=== PATIENT | female | born 1935 | race Caucasian/White ===

== ENCOUNTER 2018-07-01 10:56 | Emergency (ER) | payer MEDICARE ==
[~2018-07-01] VITALS: Ht 165.1 cm; Wt 71.7 kg
[~2018-07-01 10:56] MED LIST: AMIO200T4 PO; APIX5TAB PO; DARB40VI SC; DILT120C53; DILT120C63 PO; DOCU100C37 PO; FURO40TA4; LEVO25TA5; LORA10TA7 PO; MENT71OI TOP; METO-333 PO; METO50TA15; PANT40TA3 PO; TR1C15 TP; TRAM50TA2 PO
[2018-07-01] MEDS ORDERED: HYDROcodone/APAP 5 MG/325 MG (LORTAB) TAB PO ONE (11:30)
--- NOTE | 2018-07-01 11:41 | ED Back Pain ---
General Chief Complaint: Back Problems Stated Complaint: RUQ BACK PAIN Nursing Triage Note: PT AMBULATED TO ROOM 5 PT CO OF R UPPER BACK PAIN SINCE FALL IN APRIL, PT HAS KYPHOSIS OF SPINE, PT IS A DYALISIS PT Nursing Sepsis Screen: No Definite Risk Source of Information: Patient, Family (Daughter) Exam Limitations: No Limitations History of Present Illness Date Seen by Provider: Jul 01, 2018 Time Seen by Provider: 11:05 Initial Comments Patient is an 83-year-old female who presents to the emergency room with complaints of right upper back pain for fall on May 14. She was seen at [facility] where she had x-rays and was told that they were normal. She has continued to have pain every since the fall and has been seen in Dr. Nikki Horner office and was treated for a pulled muscle but pain is not improving. Denies loss of bowel or bladder. Location: T-Spine Pain/Injury Location: Back Method of Injury: Fall Modifying Factors: Improves With Other (lying flat improves) Associated Symptoms: No numbness in legs/feet, No tingling in legs/feet, No loss of bladder control, No loss of bowel control Allergies and Home Medications Allergies Coded Allergies: cephalexin (Verified Allergy, Unknown, 03/21/16) Home Medications Docusate Sodium 100 Mg Capsule, 100 MG PO BID Prescribed by: MARLO TRISTAN on 04/07/161856 Hydrocodone Bit/Acetaminophen 1 Tab Tab, 1 EACH PO Q6H PRN for PAIN-MODERATE Prescribed by: GO PENA on 07/01/18 1228 Loratadine 10 Mg Tablet, 10 MG PO DAILY Prescribed by: MARLO TRISTAN on 04/07/161856 Pantoprazole Sodium 40 Mg Tablet.dr, 40 MG PO DAILY@0700 Prescribed by: MARLO TRISTAN on 04/07/161856 Patient Home Medication List Home Medication List Reviewed: Yes Review of Systems Constitutional: see HPI; No chills, No fever Past Dmqucju-Yigmid-Ezxksv Hx Past Med/Social Hx: Reviewed Nursing Past Med/Soc Hx Patient Social History Alcohol Use: Denies Use Recreational Drug Use: No Smoking Status: Former Smoker Type Used: Cigarettes Recent Foreign Travel: No Contact w/Someone Who Travel: No Recent Infectious Disease Expo: No Recent Hopitalizations: No Immunizations Up To Date Date of Pneumonia Vaccine: Mar 21, 2016 Seasonal Allergies Seasonal Allergies: Yes Past Medical History Surgeries: Yes Dialysis, Eye Surgery, Gallbladder, Neurological, Vascular Surgery Respiratory: No Cardiac: Yes (FLUID OVERLOAD ) Chronic Edema/Swelling, High Cholesterol, Hypertension Neurological: Yes (S/P REPAIR OF CEREBRAL ANEURYSM) VP DATA History: Menopausal Genitourinary: Yes Renal Failure, Dialysis Gastrointestinal: Yes Gastroesophageal Reflux Musculoskeletal: Yes Gout Endocrine: Yes Hypothyroidsim HEENT: Yes Cataract Hearing Impairment: Hard of Hearing, Bilateral Hearing Aide Cancer: Yes Skin Psychosocial: No Integumentary: Yes (SKIN CANCER) Blood Disorders: Yes (CHRONIC ANEMIA) Family Medical History Reviewed Nursing Family Hx Physical Exam Vital Signs Vital Signs - First Documented 07/01/18 11:05 Temp 95.1 Pulse 53 Resp 18 B/P (MAP) 206/88 (127) Pulse Ox 100 Capillary Refill : Less Than 3 Seconds Height, Weight, BMI Height: 5'5.00" Weight: 158lbs. 7.0oz. [id number]; 32.0 BMI Method:Stated General Appearance: No Apparent Distress, WD/WN Neck: Full Range of Motion, Normal Inspection, Non Tender, Supple Cardiovascular: Regular Rate, Rhythm, No Edema, No Gallop, No JVD, No Murmur, Normal Peripheral Pulses Respiratory: Chest Non Tender, Lungs Clear, Normal Breath Sounds, No Accessory Muscle Use, No Respiratory Distress, Accessory Muscle Use Back: Vertebral Tenderness (t-spine tenderness) Neurologic/Psychiatric: Alert, Oriented x3, Normal Mood/Affect Skin: Normal Color, Warm/Dry Progress/Results/Core Measures Results/Orders My Orders Orders - OG PENA Ct Cerv/Thoracic/Lumbar Wo (07/01/18 11:16) Hydrocodone/Apap 5/325 Tablet (Lortab 5 (07/01/18 11:30) Medications Given in ED Vital Signs/I&O 07/01/18 07/01/18 11:05 12:41 Temp 95.1 95.1 Pulse 53 53 Resp 18 18 B/P (MAP) 206/88 (127) 206/88 (127) Pulse Ox 100 100 Blood Pressure Mean: 127 Progress Progress Note : Time: 12:20 Progress Note I have seen and evaluated the patient. I have informed her and her daughter of imaging studies. The agrees with plan of care and plans for discharge. Return precautions were given. Voices no questions or concerns. Diagnostic Imaging Diagonstic Imaging: CT Plain Films/CT/US/NM/MRI: other (back) Comments NAME: [facility] REC#: [id number] PHYSICIAN: OG PENA CC: OG PENA; MARLO PLATT MD Page 2 of 2 RADIOLOGY REPORT VIA [place], [place] CC: OG PENA; MARLO PLATT MD Page 1 of 1 RADIOLOGY REPORT NAME: [facility] REC#: [id number] PT STATUS: DEP ER : 1935 PHYSICIAN: OG PENA ADMIT DATE: 07/01/18/ER Signed Date of Exam: 07/01/18 CT CERV/THORACIC/LUMBAR WO INDICATION: Back pain. Fell last April. TECHNIQUE: CT of the cervical, thoracic and lumbar spine with sagittal and coronal reformatted images. FINDINGS: CT cervical spine: Good alignment of the vertebral bodies. Body heights well-maintained without fractures. Facets show good alignment without fractures. There is advanced degenerative spondylosis from C3-C7. Moderate spinal stenosis noted C4-C5 and C5-C6 due to hypertrophic facet and endplate changes. CT thoracic and lumbar spine. There is a planar compression fracture of T9. There is a hemangioma involving the T8 vertebral body though no fracture. Remaining vertebral bodies appear normal. There is advanced degenerative disc disease throughout the lumbar region. There is bilateral pars defect at L5 with L5 anteriorly listhesed on S1 grade 2. This is causing moderate to severe encroachment upon the neural foramen. There are bilateral moderate pleural effusions with lower lobe atelectasis noted. Aorta is atherosclerotic and ectatic though no focal aneurysm demonstrated. IMPRESSION: 1. Planar compression fracture of T9. This is of indeterminate age. 2. Hemangioma of T8. 3. Grade 2 spondylolisthesis of L5 on S1 with bilateral spondylolysis of L5. 4. Diffuse degenerative cervical disc disease. 5. Atherosclerotic aorta with ectasia. No focal aneurysm demonstrated. Dictated by: Dictated on workstation # [id number] Dict: 07/01/18 1158 Trans: 07/01/18 1251 Interpreted by: MARLO PLATT MD Electronically signed by: MARLO PLATT MD 07/01/18 1254 Reviewed: Reviewed by Me Departure Impression Primary Impression: Thoracic back pain Additional Impression: Compression fracture Disposition: 01 HOME, SELF-CARE Condition: Stable/Unchanged Departure-Patient Inst. Decision time for Depature: 12:24 Referrals: NIKKI HORNER MD (PCP/Family) Primary Care Physician Patient Instructions: Vertebral Compression Fracture (DC) Add. Discharge Instructions: Take medication as directed. For pain unrelieved by the hydrocodone you may also take an additional Tylenol. Do not exceed your daily Tylenol limit of 3000 mg. If the hydrocodone makes you sleepy cut the pill in half. You may use the pain pills every 6 hours as needed. Follow-up with Dr. Horner within 1 week for recheck. Return back to the emergency room for any worsening symptoms, pain , loss of bowel or bladder, numbness and tingling, or any other concerns as needed. All discharge instructions reviewed with patient and/or family. Voiced understanding. Scripts Hydrocodone Bit/Acetaminophen (Hydrocodone/Acetaminophen 5/325mg Tablet) 1 Tab Tab 1 EACH PO Q6H PRN for PAIN-MODERATE MDD 10, #20 TAB Prov: OG PENA 07/01/18 OG PENA Jul 01, 2018 11:41
--- NOTE | 2018-07-01 12:04 | Diagnostic Imaging Report ---
INDICATION: Back pain. Fell last April. TECHNIQUE: CT of the cervical, thoracic and lumbar spine with sagittal and coronal reformatted images. FINDINGS: CT cervical spine: Good alignment of the vertebral bodies. Body heights well-maintained without fractures. Facets show good alignment without fractures. There is advanced degenerative spondylosis from C3-C7. Moderate spinal stenosis noted C4-C5 and C5-C6 due to hypertrophic facet and endplate changes. CT thoracic and lumbar spine. There is a planar compression fracture of T9. There is a hemangioma involving the T8 vertebral body though no fracture. Remaining vertebral bodies appear normal. There is advanced degenerative disc disease throughout the lumbar region. There is bilateral pars defect at L5 with L5 anteriorly listhesed on S1 grade 2. This is causing moderate to severe encroachment upon the neural foramen. There are bilateral moderate pleural effusions with lower lobe atelectasis noted. Aorta is atherosclerotic and ectatic though no focal aneurysm demonstrated. IMPRESSION: 1. Planar compression fracture of T9. This is of indeterminate age. 2. Hemangioma of T8. 3. Grade 2 spondylolisthesis of L5 on S1 with bilateral spondylolysis of L5. 4. Diffuse degenerative cervical disc disease. 5. Atherosclerotic aorta with ectasia. No focal aneurysm demonstrated. Dictated by: Dictated on workstation # [id number]
[2018-07-01] MEDS ORDERED: ACHD5005 PO (12:28)
[2018-07-01 12:41] VITALS: BP 206/88
== END 2018-07-01 12:41 | disposition home or self-care (01) ==
LOC: EDUNIT# 10:56 → ER 10:57
DX: S22.070A Wedge compression fracture of T9-T10 vertebra, initial encounter for closed fracture (principal); E78.00 Pure hypercholesterolemia, unspecified; M06.9 Rheumatoid arthritis, unspecified; E03.9 Hypothyroidism, unspecified; I12.0 Hypertensive chronic kidney disease with stage 5 chronic kidney disease or end stage renal disease; N18.6 End stage renal disease; D64.9 Anemia, unspecified; Z85.828 Personal history of other malignant neoplasm of skin; Z92.21 Personal history of antineoplastic chemotherapy; Z88.8 Allergy status to other drugs, medicaments and biological substances; Z87.891 Personal history of nicotine dependence; X58.XXXA Exposure to other specified factors, initial encounter
CPT/HCPCS: 72125; 72128; 72131

== ENCOUNTER 2018-08-29 04:30 | Emergency (ER) | payer MEDICARE ==
[~2018-08-29] VITALS: Ht 165.1 cm; Wt 71.9 kg
[~2018-08-29 04:30] MED LIST changes: +ACHD5005 PO; -FURO40TA4; +FURO40TA4 PO; -LEVO25TA5; +LEVO25TA5 PO
[2018-08-29] MEDS ORDERED: ASPIRIN 81 MG CHEW (CHILDREN'S ASA) PO ONE (04:45)
--- NOTE | 2018-08-29 05:03 | ED Cardiac General ---
History of Present Illness General Stated Complaint: CP Source: patient (VERY POOR HISTORIAN), EMS History of Present Illness Date Seen by Provider: Aug 29, 2018 Time Seen by Provider: 04:34 Initial Comments PT ARRIVES VIA EMS FROM HOME, DAUGHTER ARRIVES SHORTLY AFTER ARRIVAL. PT LIVES ALONE EMS WAS CALLED FOR CHEST PAIN AND SHORTNESS OF BREATH AND "FULL OF FLUID" PT WITH ESRD ON DIALYSIS AND IS DUE FOR DIALYSIS THIS MORNING PT STATES "I CAN HEAR MY HEART POUNDING" AND DENIES ACTUAL CHEST PAIN, AND STATES IT DOES NOT FEEL LIKE IT IS POUNDING NOW, AND STATES SHE FEELS BETTER NOW. REPORTED TO EMS THAT HER CHEST WAS HURTING AND POUNDING AFTER SHE WAS COUGHING REAL HARD PT STATES SHE HAS BEEN "COUGHING AND COUGHING AND COUGHING AND I GET SHORT OF BREATH" STATES SHE HAS BEEN UP ALL NIGHT COUGHING BUT STATES SHE HAS NOT TAKEN ANYTHING FOR COUGH TONIGHT DAUGHTER STATES THAT PT BEGAN HAVING A COUGH ON Monday08/24/18, NO KNOWN FEVER. PT SAW DR. DICK YESTERDAY FOR THE COUGH AND WAS GIVEN RX'S FOR DOXYCYCLINE AND TESSALON HAS HAD THIS PROBLEM BEFORE, BUT DOES NOT NORMALLY WHEEZE + ORTHOPNEA PT HAS RECEIVED FLU AND PNEUMONIA VACCINATIONS THIS YEAR. EMS REPORTS THAT PT STATED THAT SHE WAS BETTER BY THE TIME THEY ARRIVED AT SCENE EMS REPORTS THAT O2 SAT WAS 94% ON ROOM AIR ON THEIR ARRIVAL AT THE SCENE, AND THEY STARTED NEB TREATMENT AND O2 SAT UP TO 100%, PT IS NOW ON 2ND NEB TREATMENT . PCP: DR. DICK WRECKING CRANE ENGINE OPERATOR: DR. Ramos" Allergies and Home Medications Allergies Coded Allergies: cephalexin (Verified Allergy, Unknown, 03/21/16) Home Medications Docusate Sodium 100 Mg Capsule, 100 MG PO BID Prescribed by: MARLO TRISTAN on 04/07/161856 Hydrocodone Bit/Acetaminophen 1 Tab Tab, 1 EACH PO Q6H PRN for PAIN-MODERATE Prescribed by: OG PENA on 07/01/18 1228 Loratadine 10 Mg Tablet, 10 MG PO DAILY Prescribed by: MARLO TRISTAN on 04/07/161856 Pantoprazole Sodium 40 Mg Tablet.dr 40 MG PO DAILY@0700 Prescribed by: MARLO TRISTAN on 04/07/161856 Review of Systems Review of Systems Constitutional: No chills, No fever; other (PT IS VERY LIMITED HISTORIAN) Respiratory: See HPI, Cough, Shortness of Air Cardiovascular: See HPI, Chest Pain, Palpitations Gastrointestinal: Denies Nausea, Denies Vomiting Past Bmdoaye-Nncwld-Dstqli Hx Patient Social History Type Used: Cigarettes Recent Foreign Travel: No Contact w/Someone Who Travel: No Recent Hopitalizations: No Immunizations Up To Date Date of Pneumonia Vaccine: Mar 21, 2016 Seasonal Allergies Seasonal Allergies: Yes Past Medical History Surgeries: Yes (REPAIR OF CEREBRAL ANEURYSM; DIALYSIS SHUNT RIGHT ARM; RIGHT CENTRAL LINE FOR DIALYSIS; 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; CATARACTS) Dialysis, Eye Surgery, Gallbladder, Neurological, Vascular Surgery Respiratory: Yes (FLUID OVERLOAD; BRONCHITIS) Cardiac: Yes (FLUID OVERLOAD; INTERMITTENT ATRIAL FIBRILLATION; CEREBRAL ANEURYSM ) Aneurysm, Atrial Fibrillation, Chronic Edema/Swelling, High Cholesterol, Hypertension Neurological: Yes (S/P REPAIR OF CEREBRAL ANEURYSM) 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 Genitourinary: Yes Renal Failure, Dialysis Gastrointestinal: Yes Gastroesophageal Reflux Musculoskeletal: Yes Gout Endocrine: Yes Hypothyroidsim HEENT: Yes Cataract Hearing Impairment: Hard of Hearing, Bilateral Hearing Aide Cancer: Yes Skin Did You Recieve Any Treatments: Yes (SKIN CANCER TO NOSE) What Type of Treatment Did You: Surgical Intervention Psychosocial: No Integumentary: Yes (SKIN CANCER) Blood Disorders: Yes (CHRONIC ANEMIA) Physical Exam Vital Signs Vital Signs - First Documented 08/29/18 04:35 Temp 96.2 Pulse 67 Resp 18 B/P (MAP) 203/102 (135) Pulse Ox 100 O2 Delivery OxyMask O2 Flow Rate 6.00 Capillary Refill : Height, Weight, BMI Height: 5'5.00" Weight: 158lbs. 7.0oz. 71.080445yy; 32.0 BMI Method:Stated General Appearance: No Apparent Distress Neck: Normal Inspection; No JVD Respiratory: No Accessory Muscle Use, No Respiratory Distress, Decreased Breath Sounds (IN LEFT BASE), Other (AUDIBLE WHEEZING ON ARRIVAL WITH DIFFUSE EXPIRATORY WHEEZING BILATERALLY TO AUSCULTATION. DECREASED BREATH SOUNDS IN LEFT BASE. 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 ) Neurologic/Psychiatric: Alert, No Motor/Sensory Deficits (GROSSLY INTACT), Normal Mood/Affect, Other (DIFFIULT TO DETERMINE LEVEL OF ORIENTATION, PT IS POOR HISTORIAN AND VERY HARD OF HEARING, BUT APPARENTLY IS AT NORMAL BASELINE, PER DAUGHTER. ) Skin: Warm/Dry Focused Exam Lactate Level 08/29/18 04:45: Lactic Acid Level 8.83*H Lactic Acid Level Laboratory Tests Test 08/29/18 04:45 Lactic Acid Level 8.83 MMOL/L (0.50-2.00) *H Progress/Results/Core Measures Results/Orders Lab Results Laboratory Tests Test 08/29/18 04:45 Range/Units White Blood Count 5.2 4.3-11.0 10^3/uL Red Blood Count 3.85 L 4.35-5.85 10^6/uL Hemoglobin 11.5 11.5-16.0 G/DL Hematocrit 36 35-52 % Mean Corpuscular Volume 95 80-99 FL Mean Corpuscular Hemoglobin 30 25-34 PG Mean Corpuscular Hemoglobin Concent 32 32-36 G/DL Red Cell Distribution Width 16.7 H 10.0-14.5 % Platelet Count 129 L 130-400 10^3/uL Mean Platelet Volume 10.6 H 7.4-10.4 FL Neutrophils (%) (Auto) 42 42-75 % Lymphocytes (%) (Auto) 43 12-44 % Monocytes (%) (Auto) 12 0-12 % Eosinophils (%) (Auto) 3 0-10 % Basophils (%) (Auto) 1 0-10 % Neutrophils # (Auto) 2.2 1.8-7.8 X 10^3 Lymphocytes # (Auto) 2.2 1.0-4.0 X 10^3 Monocytes # (Auto) 0.6 0.0-1.0 X 10^3 Eosinophils # (Auto) 0.2 0.0-0.3 10^3/uL Basophils # (Auto) 0.0 0.0-0.1 10^3/uL Prothrombin Time 15.3 H 12.2-14.7 SEC INR Comment 1.2 0.8-1.4 Activated Partial Thromboplast Time 37 H 24-35 SEC Sodium Level 139 135-145 MMOL/L Potassium Level 4.0 3.6-5.0 MMOL/L Chloride Level 95 L 98-107 MMOL/L Carbon Dioxide Level 29 21-32 MMOL/L Anion Gap 15 H 5-14 MMOL/L Blood Urea Nitrogen 23 H 7-18 MG/DL Creatinine 3.81 H 0.60-1.30 MG/DL Estimat Glomerular Filtration Rate 11 BUN/Creatinine Ratio 6 Glucose Level 95 70-105 MG/DL Lactic Acid Level 8.83 *H 0.50-2.00 MMOL/L Calcium Level 9.1 8.5-10.1 MG/DL Corrected Calcium 9.3 8.5-10.1 MG/DL Magnesium Level 2.1 1.8-2.4 MG/DL Total Bilirubin 0.8 0.1-1.0 MG/DL Aspartate Amino Transf (AST/SGOT) 56 H 5-34 U/L Alanine Aminotransferase (ALT/SGPT) 44 0-55 U/L Alkaline Phosphatase 97 40-136 U/L Total Creatine Kinase 29 29-168 U/L Creatine Kinase MB 0.9 <6.6 NG/ML Troponin I < 0.30 <0.30 NG/ML Total Protein 7.3 6.4-8.2 GM/DL Albumin 3.8 3.2-4.5 GM/DL Amylase Level 52 25-125 U/L Lipase 23 8-78 U/L Micro Results Microbiology 08/29/18 Influenza Types A,B Antigen (SUMMER) - Final, Complete My Orders Orders - VERENICE QUINTANA DO Amylase (08/29/18 04:34) Cbc With Automated Diff (08/29/18 04:34) Comprehensive Metabolic Panel (08/29/18 04:34) Creatine Kinase (08/29/18 04:34) Creatine Kinase Mb (08/29/18 04:34) Lipase (08/29/18 04:34) Partial Thromboplastin Time (08/29/18 04:34) Protime With Inr (08/29/18 04:34) Troponin I (08/29/18 04:34) Chest 1 View, Ap/Pa Only (08/29/18 04:34) O2 (08/29/18 04:34) Ekg Tracing (08/29/18 04:34) Aspirin Chewable Tablet (Baby Aspirin Ch (08/29/18 04:45) Monitor-Rhythm Ecg Trace Only (08/29/18 04:34) Lactic Acid Analyzer (08/29/18 04:40) Magnesium (08/29/18 04:40) Blood Culture (08/29/18 04:40) Influenza A And B Antigens (08/29/18 04:40) Methylprednisolone Sod Succ (Solu-Medrol (08/29/18 05:30) Hydralazine Injection (Apresoline Inject (08/29/18 05:30) Meropenem (Merrem 1000 Mg) (08/29/18 05:30) Enoxaparin Injection (Lovenox Injection) (08/29/18 06:00) Medications Given in ED Current Medications Medications Dose Ordered Sig/Nik Route Start Time Stop Time Status Last Admin Dose Admin Aspirin 324 mg ONCE ONCE PO 08/29/18 04:45 08/29/18 04:46 DC 08/29/18 05:01 324 MG Hydralazine HCl 10 mg ONCE ONCE IV 08/29/18 05:30 08/29/18 05:31 DC 08/29/18 05:30 10 MG Meropenem 1000 mg/ Sodium Chloride 100 ml @ 200 mls/hr ONCE ONCE IV 08/29/18 05:30 08/29/18 05:59 DC 08/29/18 06:05 200 MLS/HR Methylprednisolone Sodium Succinate 125 mg ONCE ONCE IVP 08/29/18 05:30 08/29/18 05:31 DC 08/29/18 05:30 125 MG Vital Signs/I&O 08/29/18 08/29/18 04:35 04:35 Temp 96.2 Pulse 67 Resp 18 B/P (MAP) 203/102 (135) Pulse Ox 100 100 O2 Delivery OxyMask O2 Flow Rate 6.00 6.00 Progress Progress Note : Progress Note NO SIGNIFICANT COUGH NOTED IN ER AND DECREASED WHEEZING AFTER NEB TREATMENTS, BUT STILL HAS SOME MODERATE RESIDUAL EXPIRATORY WHEEZING STATES SHE FEELS BETTER BP DOWN WITH HYDRALAZINE HEART RATE REMAINED STABLE IN 60'S O2 SATS REMAINED IN UPPER 90'S ON ROOM AIR NO DETERIORATION IN PT'S CONDITION DURING ER STAY. Initial ECG Impression Date: Aug 29, 2018 Initial ECG Impression Time: 04:59 Initial ECG Rate: 125 (BUT APPEARS TO BE DOUBLE COUNTING, AND IS ACTUALLY IN 60 'S ) Initial ECG Rhythm: A Fib/Flutter Initial ECG Impression: Nonspecific Changes (IVCD/INCOMPLETE LBBB), Atrial Fibrillation (FLUTTER), 1st Degree AV Block Initial ECG Comparisson: Changed (FROM NSR 06/2017) Diagnostic Imaging Comments CXR--FLUID OVERLOAD WITH LEFT PLEURAL EFFUSION, PENDING RADIOLOGIST REVIEW Reviewed: Reviewed by Me Departure Communication (Admissions) 0537--CALLED [facility]. MESSAGE LEFT ON MACHINE. 0530--SPOKE WITH AGNEL [facility] HOSPITALIST, DR. LI. 0547--SPOKE WITH DR. LI, ACCEPTS PT FOR ADMIT. NO ADDITIONAL ORDERS NOTED [facility] WILL NOT BE AVAILABLE FOR TRANSPORT UNTIL AFTER 0800 Impression Primary Impression: Bronchitis Additional Impressions: Fluid overload ESRD (end stage renal disease) on dialysis Uncontrolled hypertension Lactic acidosis Intermittent atrial fibrillation Disposition: XFER SHT-TRM HOSP Condition: Improved Departure-Patient Inst. Referrals: BUSTER DICK MD (PCP/Family) Primary Care Physician VERENICE QUINTANA DO Aug 29, 2018 05:03
[2018-08-29 05:06] LABS: BASOPHILS % (AUTO) 1 % (0-10); EOSINOPHILS # (AUTO) 0.2 10^3/uL (0.0-0.3); EOSINOPHILS % (AUTO) 3 % (0-10); HEMATOCRIT 36 % (35-52); HEMOGLOBIN 11.5 G/DL (11.5-16.0); LYMPHOCYTES # (AUTO) 2.2 X 10^3 (1.0-4.0); LYMPHOCYTES % (AUTO) 43 % (12-44); MEAN CORPUSCULAR HEMOGLOBIN 30 PG (25-34); MEAN CORPUSCULAR HGB CONC 32 G/DL (32-36); MEAN CORPUSCULAR VOLUME 95 FL (80-99); MEAN PLATELET VOLUME 10.6 FL (7.4-10.4); MONOCYTES # (AUTO) 0.6 X 10^3 (0.0-1.0); MONOCYTES % (AUTO) 12 % (0-12); NEUTROPHILS # (AUTO) 2.2 X 10^3 (1.8-7.8); NEUTROPHILS % (AUTO) 42 % (42-75); PLATELET COUNT 129 10^3/uL (130-400); RED BLOOD COUNT 3.85 10^6/uL (4.35-5.85); RED CELL DISTRIBUTION WIDTH 16.7 % (10.0-14.5); WHITE BLOOD COUNT 5.2 10^3/uL (4.3-11.0)
[2018-08-29 05:14] LABS: INR 1.2 (0.8-1.4); PROTHROMBIN TIME PATIENT 15.3 SEC (12.2-14.7)
[2018-08-29 05:29] LABS: ALANINE AMINOTRANSFERASE 44 U/L (0-55); ALBUMIN 3.8 GM/DL (3.2-4.5); ALKALINE PHOSPHATASE 97 U/L (40-136); AMYLASE 52 U/L (25-125); BILIRUBIN,TOTAL 0.8 MG/DL (0.1-1.0); BUN/CREATININE RATIO 6; CALCIUM 9.1 MG/DL (8.5-10.1); CARBON DIOXIDE 29 MMOL/L (21-32); CHLORIDE 95 MMOL/L (98-107); CREATINE KINASE 29 U/L (29-168); CREATININE SERUM 3.81 MG/DL (0.60-1.30); GFR ESTIMATED 11; GLUCOSE 95 MG/DL (70-105); LIPASE 23 U/L (8-78); MAGNESIUM 2.1 MG/DL (1.8-2.4); SODIUM 139 MMOL/L (135-145); TOTAL PROTEIN 7.3 GM/DL (6.4-8.2)
[2018-08-29] MEDS ORDERED: methylPREDNISolone 125 MG (Solu-MEDROL) VIAL IVP ONE (05:30)
[2018-08-29] MEDS ORDERED: hydrALAZINE (APESOLINE) 20 MG/ML VIAL IV ONE (05:30)
[2018-08-29] MEDS ORDERED: MEROPENEM 1,000 MG in NS (IVPB) 100 ML IV ONE (05:30)
[2018-08-29 05:36] LABS: CREATINE KINASE MB 0.9 NG/ML (<6.6)
[2018-08-29] MEDS ORDERED: ENOXAPARIN 80 MG/0.8 ML (LOVENOX) SYR ONE (05:58)
[2018-08-29] MEDS ORDERED: ENOXAPARIN 80 MG/0.8 ML (LOVENOX) SYR SC SCH (06:00)
--- NOTE | 2018-08-29 07:13 | Diagnostic Imaging Report ---
INDICATION: Cough, congestion and shortness of breath. Comparison made with prior examination from 07/17/2017 FINDINGS: There is cardiomegaly. There is moderate central pulmonary venous congestion. There is a left basilar consolidation and left pleural effusion. There is no pneumothorax. The mediastinum is unremarkable. There is a right internal jugular hemodialysis catheter which has its tip in the right atrium. IMPRESSION: Left basilar consolidation and left pleural effusion. Chloe and moderate central pulmonary venous congestion. Dictated by: Dictated on workstation # [id number]
[2018-08-29 08:49] VITALS: BP 156/80
--- OUTSIDE RECORDS SUMMARY | 2018-08-29 10:59 | XMS REPORT ---
Author Author [facility] [employer] [facility] Medical Staff Organization [facility] Address [address], [place] [id number] Phone [phone] Summary purpose TRANSITION OF CARE AUTO GENERATION Chief Complaint and Reason for Visit Admit Diagnosis 1 CATARACT NEC Problem list No authorized problems tracked for continuity of care are available for this visit. Encounters No authorized problems tracked for encounter diagnoses are available for this visit. Medications Home Medications Medication Directions Started Status Source metoprolol tartrate 50 mg tablet 50 mg oral 2 Times Daily for htn Current Patient medication list pravastatin 20 mg tablet 1 tablet oral 1 Daily for cholesterol Current Patient medication list hydrochlorothiazide 25 mg tablet 1 tablet oral 1 Daily for htn/fluid ret. Current Patient medication list aspirin 81 mg tablet 81 mg oral 1 Daily for circulation Current Patient medication list One A Day tablet 1 tablet oral 1 Daily for supplement Current Patient medication list Fish Oil 360 mg-1,200 mg capsule 1 tablet oral 1 Daily for supplement Current Patient medication list amlodipine 2.5 mg tablet 1 tablet oral At Bed Time for htn Current Patient recall Allergies, adverse reactions, alerts Allergen Category Ingredient Status Reaction Severity Onset No known allergies No known allergies No known allergies Confirmed or Verified Immunizations No immunizations recorded for this patient visit Relevant diagnostic tests and/or laboratory data No authorized results are available for this patient visit History of procedures Procedure Code Code Type Description Date Performed Performing Physician 13.51 ICD9-CM TEMP-INF XTRACAP LENS EX 11-27-2014 13.71 ICD9-CM INSERT LENS AT CATAR EXT 11-27-2014 57322 CPT-4 CATARACT SURG W/IOL, 1 STAGE 11-27-2014 GRISEL CHINO A9270 CPT-4 NON-COVERED ITEM OR SERVICE 11-27-2014 GRISEL CHINO J7120 CPT-4 RINGERS LACTATE INFUSION 11-27-2014 GRISEL CHINO V2632 CPT-4 POST CHMBR INTRAOCULAR LENS 11-27-2014 GRISEL CHINO Functional status Functional Status Finding Observation Time Hearing Prob Loc bilateral 51-49-554925:19 Vision Problems yes 54-61-811010:19 Vision Correct Dev glasses :19 Ambulation Asst Dev none :37 Range of Motion full : Muscle Strength RUE 5 ROM full resist :30 Muscle Strength RLE 5 ROM full resist :30 Muscle Strength LUE 5 ROM full resist :30 Muscle Strength LLE 5 ROM full resist :30 Transfers independent : Ambulation up ad china 42-09-605117:30 Balance steady :30 Bathing Assistance none :37 Eating Assistance none :37 Dressing Assistance none :37 Toileting Assistance none :37 Transfer Assistance none :37 Decline Slf Care/Mob no :37 Nutrition normal :30 Diet regular :30 Oral Cavity moist and intact 11-62-207827:30 Teeth dentures 46-90-291153:30 Dental Hygiene good 75-60-943568:30 Abdomen Appearance obese :30 Abdomen soft :30 Bowel Sounds present :30 NG Tube no :30 Feeding Tube none :30 Landers no :30 Cont Bladder Irr no :30 Ostomy no :30 Stool normal :30 Urination normal 24-68-740573:30 Quality sym/unlabored :30 Cough absent :30 Secretions no :30 Breath Sounds RUL clear :30 Breath Sounds RML clear :30 Breath Sounds RLL clear :30 Breath Sounds JAY clear :30 Breath Sounds LLL clear 24-56-307451:30 Airway natural :30 Chest Tube no 81-24-608598:30 Oxygen no 48-33-054197:47 C-PAP no 24-24-854174:30 BI-PAP no :30 Temp >100.4 no : Temp <96.8 no : Chills with rigors no : HR > 90bpm no : Respirations > 20 no : Systolic <90 no : headache stiff neck no :30 Rapid Resp no 82-09-362536:30 IV Site Location R AC 12-34-870596:45 IV Type peripheral 40-26-824521:30 IV Site Information discontinued :45 IV Site Start Attmpt 2 times 83-89-240586:30 IV Site Genaro 20 40-13-603164:30 IV Site Appearance WNL 58-68-685140:30 IV Site Color clear 73-58-291064: IV Site Patent yes 00-43-387531:30 Dressing Type occlusive 21-61-123351:30 Nursing Note Discharge instr provided, pt verb understanding. IV dc'd. Pt dc' d to home in stable condition ambulatory with son in personal vehical. Belongings intact. 11:50 Cognitive Status Finding Observation Time Learning Ability comprehends well 17-16-094568:50 Neurological no 27-13-652919:50 Psychological no 59-65-362317:50 Physical no 88-01-560404:50 Hearing yes 06-73-321306:50 Senior Marketing Analyst Needed no 57-93-276121:50 Sign Language no 14-17-762278:50 Emotional no 24-29-095109:50 Vision yes 73-57-075676:50 [place] no 84-21-963437:50 Financial no :50 Vital signs Type Value Date Respiration Rate 16breaths per minute :47 Pulse 62beats per minute :47 Oxygen Saturation 100% 64-62-994640:47 BP Systolic 171mmHg :47 BP Diastolic 86mmHg :47 Temperature 97.7F 64-53-505470:28 Height 65inches 99-81-453845:32 Weight 206LB 81-97-269877:32 Social history Type Value Smoking Status FORMER SMOKER Treatment Plan No treatment plan text is available for this visit. Hospital discharge instructions Discharge Date/Time 11/27/14 1150 Accompanied By son Relationship child Dismissal Condition good Disposition on DC home Valuables yes Valuable Type billfold/purse Valuables Returned T patient DC Inst/Educ Give yes Exit Care Educ Given yes Med/Side Effects Rev yes PNE Vac never Flu Vac 2013 Tetanus Vac unknown Medical Equipment eye patch Diet Explained yes Follow up appt already seen
--- OUTSIDE RECORDS SUMMARY | 2018-08-29 11:00 | XMS REPORT | Continuity of Care Document ---
Demographics x Preferred Language Unknown Marital Status Unknown Hoahaoism Affiliation Unknown Race Unknown Ethnic Group Unknown Author Author [facility] Organization [facility] Address Unknown Phone Unavailable Allergies Active Description Code Type Severity Reaction Onset Reported/Identified Relationship to Patient Clinical Status Yes cephalexin 2716 Drug Allergy N/ A N/A Confirmed or Verified Yes Keflex 6608 Drug Allergy N/A Hives Yes No known allergies [id number] Drug Allergy N/A N/A Confirmed but inactive Yes ALBUMIN, HUMAN ALBUMIN, HUMAN MODERATE Yes LEVOTHYROXINE LEVOTHYROXINE MODERATE Yes SULFA (SULFONAMIDE ANTIBIOTICS) SULFA (SULFONAMIDE A MODERATE Yes ALBUMIN, HUMAN MODERATE ITCHING Yes LEVOTHYROXINE MODERATE ITCHING Yes SULFA (SULFONAMIDE ANTIBIOTICS) MODERATE DERMATOLOGICAL - HIV Yes albumin colloid, human [id number] Drug Allergy Unknown N/A 03/21/2016 Yes cephalexin [id number] Drug Allergy Unknown N/A 03/21/2016 Medications There is no data. 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 03/29/2016 MARLO TRISTAN MD Ot I48.91 UNSPECIFIED ATRIAL FIBRILLATION 03/29/2016 MARLO TRISTAN MD Ot 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 03/29/2016 MARLO TRISTAN MD Ot Z66 DO NOT RESUSCITATE 03/29/2016 MARLO TRISTAN MD Ot Z87.891 PERSONAL HISTORY OF NICOTINE DEPENDENCE 03/29/2016 MARLO TRISTAN MD E Ot Z99.2 DEPENDENCE ON RENAL DIALYSIS 03/29/2016 MARLO TRISTAN MD E Ot D63.8 ANEMIA IN OTHER CHRONIC DISEASES CLASSIF 03/29/2016 MARLO TRISTAN MD E Ot E03.9 HYPOTHYROIDISM, UNSPECIFIED 03/29/2016 MARLO TRISTAN MD E Ot E83.51 HYPOCALCEMIA 03/29/2016 MARLO TRISTAN MD E Ot E88.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 03/29/2016 FERMIN TRISTAN MDIC E Ot I12.0 HYP 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 03/29/2016 MARLO TRISTAN MD E Ot I48.91 UNSPECIFIED ATRIAL FIBRILLATION 03/29/2016 MARLO TRISTAN MD E Ot 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 03/29/2016 MARLO TRISTAN MD E Ot Z66 DO NOT RESUSCITATE 03/29/2016 MARLO TRISTAN MD E Ot Z87.891 PERSONAL HISTORY OF NICOTINE DEPENDENCE 03/29/2016 MARLO TRISTAN MD E Ot Z99.2 DEPENDENCE ON RENAL DIALYSIS 03/31/2016 MARLO TRISTAN MD E Ot D63.8 ANEMIA IN OTHER CHRONIC DISEASES CLASSIF 03/31/2016 AMRLO TRISTAN MD E Ot E03.9 HYPOTHYROIDISM, UNSPECIFIED 03/31/2016 MARLO TRISTAN MD E Ot E83.51 HYPOCALCEMIA 03/31/2016 MARLO TRISTAN MD E Ot E88.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 03/31/2016 MARLO TRISTAN MD E Ot I12.0 HYP 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 03/31/2016 MARLO TRISTAN MD E Ot I48.91 UNSPECIFIED ATRIAL FIBRILLATION 03/31/2016 MARLO TRISTAN MD E Ot 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 03/31/2016 MARLO TRISTAN MD E Ot Z66 DO NOT RESUSCITATE 03/31/2016 MARLO TRISTAN MD E Ot Z87.891 PERSONAL HISTORY OF NICOTINE DEPENDENCE 03/31/2016 MARLO TRISTAN MD E Ot Z99.2 DEPENDENCE ON RENAL DIALYSIS 04/03/2016 MARLO TRISTAN MD E Ot D63.8 ANEMIA IN OTHER CHRONIC DISEASES CLASSIF 04/03/2016 MARLO TRISTAN MD E Ot E03.9 HYPOTHYROIDISM, UNSPECIFIED 04/03/2016 MARLO TRISTAN MD E Ot E83.51 HYPOCALCEMIA 04/03/2016 MARLO TRISTAN MD E Ot E88.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 04/03/2016 FERMIN TRISTAN MDIC E Ot I12.0 HYP 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 04/03/2016 MARLO TRISTAN MD E Ot I48.91 UNSPECIFIED ATRIAL FIBRILLATION 04/03/2016 MARLO TRISTAN MD E Ot 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 04/03/2016 MARLO TRISTAN MD E Ot Z66 DO NOT RESUSCITATE 04/03/2016 MARLO TRISTAN MD E Ot Z87.891 PERSONAL HISTORY OF NICOTINE DEPENDENCE 04/03/2016 MARLO TRISTAN MD E Ot Z99.2 DEPENDENCE ON RENAL DIALYSIS 04/06/2016 MARLO TRISTAN MD E Ot D63.8 ANEMIA IN OTHER CHRONIC DISEASES CLASSIF 04/06/2016 MARLO TRISTAN MD E Ot E03.9 HYPOTHYROIDISM, UNSPECIFIED 04/06/2016 MARLO TRISTAN MD E Ot E83.51 HYPOCALCEMIA 04/06/2016 MARLO TRISTAN MD E Ot E88.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 04/06/2016 MARLO TRISTAN MD E Ot I12.0 HYP 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 04/06/2016 MARLO TRISTAN MD E Ot I48.91 UNSPECIFIED ATRIAL FIBRILLATION 04/06/2016 MARLO TRISTAN MD E Ot 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 04/06/2016 MARLO TRISTAN MD E Ot Z66 DO NOT RESUSCITATE 04/06/2016 MARLO TRISTAN MD E Ot Z87.891 PERSONAL HISTORY OF NICOTINE DEPENDENCE 04/06/2016 MARLO TRISTAN MD E Ot Z99.2 DEPENDENCE ON RENAL DIALYSIS 04/07/2016 MARLO TRISTAN MD E Ot D63.8 ANEMIA IN OTHER CHRONIC DISEASES CLASSIF 04/07/2016 MARLO TRISTAN MD E Ot E03.9 HYPOTHYROIDISM, UNSPECIFIED 04/07/2016 MARLO TRISTAN MD E Ot E83.51 HYPOCALCEMIA 04/07/2016 FERMIN TRISTAN MDIC E Ot E88.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 04/07/2016 FERMIN TRISTAN MDIC E Ot I12.0 HYP 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 04/07/2016 MARLO TRISTAN MD E Ot I48.91 UNSPECIFIED ATRIAL FIBRILLATION 04/07/2016 MARLO TRISTAN MD Ot 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 04/07/2016 MARLO TRISTAN MD Ot Z66 DO NOT RESUSCITATE 04/07/2016 MARLO TRISTAN MD Ot Z87.891 PERSONAL HISTORY OF NICOTINE DEPENDENCE 04/07/2016 MARLO TRISTAN MD Ot Z99.2 DEPENDENCE ON RENAL DIALYSIS 04/08/2016 MARLO TRISTAN MD Ot D63.8 ANEMIA IN OTHER CHRONIC DISEASES CLASSIF 04/08/2016 MARLO TRISTAN MD Ot E03.9 HYPOTHYROIDISM, UNSPECIFIED 04/08/2016 MARLO TRISTAN MD Ot E83.51 HYPOCALCEMIA 04/08/2016 MARLO TRISTAN MD Ot E88.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 04/08/2016 MARLO TRISTAN MD Ot I12.0 HYP 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 04/08/2016 MARLO TRISTAN MD Ot I48.91 UNSPECIFIED ATRIAL FIBRILLATION 04/08/2016 MARLO TRISTAN MD Ot L30.9 DERMATITIS, UNSPECIFIED 04/08/2016 MARLO TRISTAN MD Ot L89.312 PRESSURE ULCER OF RIGHT BUTTOCK, STAGE 2 04/08/2016 MARLO TRISTAN MD Ot L89.322 PRESSURE ULCER OF LEFT BUTTOCK, STAGE 2 04/08/2016 MARLO TRISTAN MD Ot 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 04/08/2016 MARLO TRISTAN MD Ot Z66 DO NOT RESUSCITATE 04/08/2016 MARLO TRISTAN MD Ot Z87.891 PERSONAL HISTORY OF NICOTINE DEPENDENCE 04/08/2016 MARLO TRISTAN MD Ot Z99.2 DEPENDENCE ON RENAL DIALYSIS 04/13/2016 GRISEL GIBBS MD Ot L89.312 PRESSURE ULCER OF RIGHT BUTTOCK, STAGE 2 04/13/2016 GRISEL GIBBS MD Ot 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 04/17/2016 ELSA JERONIMO DO Ot M17.11 UNILATERAL PRIMARY OSTEOARTHRITIS, RIGHT 04/17/2016 ELSA JEORNIMO DO Ot M25.461 EFFUSION, RIGHT KNEE 04/17/2016 ELSA JERONIMO DO Ot M25.561 PAIN IN RIGHT KNEE 04/17/2016 ELSA JERONIMO DO Ot 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, 04/19/2016 ELSA JERONIMO DO Ot M17.11 UNILATERAL PRIMARY OSTEOARTHRITIS, RIGHT 04/19/2016 ELSA JERONIMO DO, Ot M25.461 EFFUSION, RIGHT KNEE 04/19/2016 ELSA JERONIMO DO Ot M25.561 PAIN IN RIGHT KNEE 04/19/2016 ELSA JERONIMO DO, Ot 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, 04/19/2016 ELSA JERONIMO DO Ot M17.11 UNILATERAL PRIMARY OSTEOARTHRITIS, RIGHT 04/19/2016 KANDACE ELSA HOLLIS Ot M25.461 EFFUSION, RIGHT KNEE 04/19/2016 KANDACE ELSA HOLLIS Ot M25.561 PAIN IN RIGHT KNEE 04/19/2016 ELSA JERONIMO DO, Ot 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, 04/19/2016 [place]I [place], GRISEL Chung Ot L89.312 PRESSURE ULCER OF RIGHT BUTTOCK, STAGE 2 04/19/2016 [place], GRISEL Chung Ot 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 07/20/2016 A 682.3 CELLULITIS AND ABSCESS OF UPPER ARM AND FOREARM 07/20/2016 A L03.113 CELLULITIS OF RIGHT UPPER LIMB 07/17/2017 VERENICE QUINTANA DO K Ot E03.9 HYPOTHYROIDISM, UNSPECIFIED 07/17/2017 MARIYA QUINTANA DOA K Ot E78.00 PURE HYPERCHOLESTEROLEMIA, UNSPECIFIED 07/17/2017 MARIANO DO VERENICE K Ot E87.70 FLUID OVERLOAD, UNSPECIFIED 07/17/2017 MARIYA QUINTANA DOA K Ot I12.0 HYP 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 07/17/2017 MARIYA QUINTANA DOA Jen Ot K21.9 GASTRO-ESOPHAGEAL REFLUX DISEASE WITHOUT 07/17/2017 MARIANO DO VERENICE K Ot M10.9 GOUT, UNSPECIFIED 07/17/2017 MARIANO MARIYA HOLLISA Jen Ot 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 07/17/2017 MARIYA QUINTANA DOA K Ot R06.02 SHORTNESS OF BREATH 07/17/2017 MARIYA QUINTANA DOA K Ot Z85.828 PERSONAL HISTORY OF OTHER MALIGNANT NEOP 07/17/2017 VERENICE QUINTANA DO Ot Z87.891 PERSONAL HISTORY OF NICOTINE DEPENDENCE 07/17/2017 VERENICE QUINTANA DO Ot Z96.22 MYRINGOTOMY TUBE(S) STATUS 07/17/2017 MARIANO DO, VERENICE K Ot Z99.2 DEPENDENCE ON RENAL DIALYSIS 07/25/2017 MARIANO DO, VERENICE K Ot E03.9 HYPOTHYROIDISM, UNSPECIFIED 07/25/2017 MARIANO DO, VERENICE K Ot E78.00 PURE HYPERCHOLESTEROLEMIA, UNSPECIFIED 07/25/2017 MARIANO DO, VERENICE K Ot E87.70 FLUID OVERLOAD, UNSPECIFIED 07/25/2017 MARIANO DO, VERENICE K Ot I12.0 HYP 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 07/25/2017 MARIANO DO, VERENICE K Ot K21.9 GASTRO-ESOPHAGEAL REFLUX DISEASE WITHOUT 07/25/2017 MARIANO DO, VERENICE K Ot M10.9 GOUT, UNSPECIFIED 07/25/2017 MARIANO DO, VERENICE K Ot 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 07/25/2017 MARIANO DO, VERENICE K Ot R06.02 SHORTNESS OF BREATH 07/25/2017 MARIANO DO, VERENICE K Ot Z85.828 PERSONAL HISTORY OF OTHER MALIGNANT NEOP 07/25/2017 MARIANO DO, VERENICE K Ot Z87.891 PERSONAL HISTORY OF NICOTINE DEPENDENCE 07/25/2017 MARIANO DO, VERENICE K Ot Z96.22 MYRINGOTOMY TUBE(S) STATUS 07/25/2017 MARIANO DO, VERENICE K Ot Z99.2 DEPENDENCE ON RENAL DIALYSIS 06/10/2018 Brokob, Leyla A 724.2 LUMBAGO 06/10/2018 Brokob, Leyla A M54.5 LOW BACK PAIN 07/01/2018 OG PENA Ot D64.9 ANEMIA, UNSPECIFIED 07/01/2018 COCO PENAIS Ot E03.9 HYPOTHYROIDISM, UNSPECIFIED 07/01/2018 COCO PENAIS Ot E78.00 PURE HYPERCHOLESTEROLEMIA, UNSPECIFIED 07/01/2018 COCO PENAIS Ot I12.0 HYP 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 07/01/2018 OG PENA Ot M06.9 RHEUMATOID ARTHRITIS, UNSPECIFIED 07/01/2018 COCO PENAIS Ot M54.6 PAIN IN THORACIC SPINE 07/01/2018 COCO PENAIS Ot 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 07/01/2018 OG PENA Ot S22.070A WEDGE COMPRESSION FRACTURE OF T9-T10 JAVIER 07/01/2018 COCO PENAIS Ot X58.XXXA EXPOSURE TO OTHER SPECIFIED FACTORS, INI 07/01/2018 COCO PENAIS Ot Z85.828 PERSONAL HISTORY OF OTHER MALIGNANT NEOP 07/01/2018 COCO PENAIS Ot Z87.891 PERSONAL HISTORY OF NICOTINE DEPENDENCE 07/01/2018 COCO PENAIS Ot Z88.8 ALLERGY STATUS TO OTH DRUG/MEDS/BIOL SUB 07/01/2018 COCO PENAIS Ot Z92.21 PERSONAL HISTORY OF ANTINEOPLASTIC CHEMO 07/03/2018 COCO PENAIS Ot D64.9 ANEMIA, UNSPECIFIED 07/03/2018 COCO PENAIS Ot E03.9 HYPOTHYROIDISM, UNSPECIFIED 07/03/2018 COCO PENAIS Ot E78.00 PURE HYPERCHOLESTEROLEMIA, UNSPECIFIED 07/03/2018 BECKY OG Ot I12.0 HYP 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 07/03/2018 COCO PENAIS Ot M06.9 RHEUMATOID ARTHRITIS, UNSPECIFIED 07/03/2018 COCO PENAIS Ot M54.6 PAIN IN THORACIC SPINE 07/03/2018 BECKY OG Ot 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 07/03/2018 BECKY OG Ot S22.070A WEDGE COMPRESSION FRACTURE OF T9-T10 JAVIER 07/03/2018 COCO PENAIS Ot X58.XXXA EXPOSURE TO OTHER SPECIFIED FACTORS, INI 07/03/2018 COCO PENAIS Ot Z85.828 PERSONAL HISTORY OF OTHER MALIGNANT NEOP 07/03/2018 OG PENA Ot Z87.891 PERSONAL HISTORY OF NICOTINE DEPENDENCE 07/03/2018 COCO PENAIS Ot Z88.8 ALLERGY STATUS TO OTH DRUG/MEDS/BIOL SUB 07/03/2018 COCO PENAIS Ot Z92.21 PERSONAL HISTORY OF ANTINEOPLASTIC CHEMO Procedures Code Description [place] [address] ROUTINE VENIPUNCTURE 02/14/[address] HEAD/BRAIN W/O DYE 02/14/2016 24457 CHEST X-RAY 02/14/2016 61840 COMPREHEN METABOLIC PANEL 02/14/2016 88936 URINALYSIS, AUTO W/SCOPE 02/14/2016 46036 ASSAY OF CK (CPK) 02/14/2016 59878 CREATINE, MB FRACTION 02/14/2016 64739 NATRIURETIC PEPTIDE 02/14/2016 23906 ASSAY OF TROPONIN, QUANT 02/14/2016 61829 COMPLETE CBC W/AUTO DIFF WBC 02/14/2016 67754 HYDRATE IV INFUSION, ADD-ON 02/14/2016 48429 THER/PROPH/DIAG INJ, IV PUSH 02/14/2016 62805 TX/PRO/DX INJ NEW DRUG ADDON 02/14/2016 80464 EMERGENCY DEPT VISIT 02/14/2016 J3490 DRUGS UNCLASSIFIED INJECTION 02/14/2016 A0425 GROUND MILEAGE 02/15/2016 A0426 ALS 1 02/15/2016 Results Test Result Range CBC WITH DIFF - 02/14/16 00:00 BASO% 0.2 % 0-2 EOS% 2.0 % 0-7.0 HCT 32.4 % 36.9-47.0 HGB 11.2 G/DL 12.0-16.0 LYMPH% 14.4 % 20-40 MCH 29.5 PG 27-31 MCHC 34.6 G/DL 33-37 MCV 85.3 FL 81-99 MONO% 8.5 % 0-10.0 MPV 9.1 FL 7.3-10.4 NEUTRO% 74.5 % 40-70 PLT 128 10^3u 130-400 RBC 3.8 10^6u 4.2-5.4 RDW 13.2 % 11.5-15.5 WBC 11.7 10^3u 4.8-10.8 NEUTRO# 8.7 10^3u 1.5-7.5 LYMPH# 1.7 10^3u 0.9-4.0 MONO# 1.0 10^3u 0-0.8 EOS# 0.2 10^3u 0-0.6 BASO# 0.0 10^3u 0-0.1 IMM GRANULOCYTE % 0.4 % IMM GRANULOCYTE # 0.1 10^3u 0-5 UA - 02/14/16 00:00 PH 7.5 4.5-8.0 SG 1.020 1.003-1.035 UABILI NEGATIVE UABLD 2+ UACOLOR YEL UAGLU NEGATIVE UAKET NEGATIVE UALEUK NEGATIVE UANIT NEGATIVE UAURO 1.0 0-0.2 UCX NO CLARITY CL PROTEIN 3+ UA WBC R05 UA RBC TNTC SQUAMOUS EPITHELIAL CELLS 1+ BACTERIA 2+ TROP - 02/14/16 00:00 TROP 0.05 NG/ML 0.0-0.4 PRO-BNP - 02/14/16 00:00 PRO-BNP 14535 PG/ML 0-900 CKMB - 02/14/16 00:00 CKMB 1.1 NG/ML 0-3.6 CK - 02/14/16 00:00 CK 60 IU/L 26-192 CMP - 02/14/16 00:00 ALB 3.8 G/DL 3.5-5 ALP 81 IU/L 25-72 ALT 19 IU/L 12-65 AST 20 IU/L 10-42 BCR 12.7 10-20 BUN 58 MG/DL 7-18 CA 8.8 MG/DL 8.4-10.2 CL 94 MEQ/L 98-107 CO2 30.0 MEQ/L 22-28 CREA 4.58 MG/DL 0.6-1.0 EGFR 9 eGFR >=60 GLU 127 MG/DL 70-105 K 3.3 MEQ/L 3.5-5.1 NA 133 MEQ/L 134-145 OSMSC 284.1 MOSML 280-300 TBIL 0.7 MG/DL 0.1-1.0 TP 7.7 G/DL 6.0-8.3 Albumin/Globulin Ratio 1.0 0-8 Anion Gap 9.0 8-16 PO4 - 02/14/16 00:00 PO4 4.8 MG/DL 1.9-4.5 MG - 02/14/16 00:00 MG 1.8 MG/DL 1.7-2.8 PT INR - 02/14/16 00:00 INR 1.0 0.8-1.2 PT 10.3 SEC 9.1-12.0 APTT - 02/14/16 00:00 APTT 28.7 SEC 22-35.4 TROP - 02/14/16 00:00 TROP 0.07 NG/ML 0.0-0.4 DIFFERENTIAL, MANUAL - 02/14/16 00:00 BANDS 4.0 % 0-5 EOS 2.0 % 0-7 LYMPH 12.0 % 20-40 SEGS 82.0 % 40-70 FREE T4 - 02/14/16 00:00 FT4 1.41 NG/DL 0.76-1.46 TSH - 02/14/16 00:00 TSH 3.40 UIUML 0.36-3.74 FREE T3 - 02/14/16 00:00 FT3 1.56 PG/ML 2.18-3.98 UA - 02/14/16 00:00 PH 7.0 4.5-8.0 SG 1.025 1.003-1.035 UABILI NEGATIVE UABLD 3+ UACOLOR YEL UAGLU TRACE UAKET NEGATIVE UALEUK NEGATIVE UANIT NEGATIVE UAURO 1.0 0-0.2 UCX YES CLARITY HAZY PROTEIN 2+ UA WBC R05 UA RBC TNTC SQUAMOUS EPITHELIAL CELLS FEW SEDR - 02/14/16 00:00 SEDR 10 0-30 TROP - 02/14/16 00:00 TROP 0.05 NG/ML 0.0-0.4 PRO-BNP - 02/14/16 00:00 PRO-BNP 95931 PG/ML 0-900 BMP - 02/14/16 00:00 BCR 12.7 10-20 BUN 58 MG/DL 7-18 CA 8.1 MG/DL 8.4-10.2 CL 94 MEQ/L 98-107 CO2 25.2 MEQ/L 22-28 CREA 4.57 MG/DL 0.6-1.0 EGFR 9 eGFR >=60 GLU 149 MG/DL 70-105 K 3.2 MEQ/L 3.5-5.1 NA 132 MEQ/L 134-145 OSMSC 283.5 MOSML 280-300 Anion Gap 12.8 8-16 RSTREP - 02/14/16 00:00 RSTREP N Negative PROTEIN ELECTRO SERUM - 02/14/16 00:00 PRELS1 6.4 g/dL 6.1-8.1 PRELS10 SEE NOTE PRELS2 3.4 g/dL 3.8-4.8 PRELS3 0.4 g/dL 0.2-0.3 PRELS4 0.8 g/dL 0.5-0.9 PRELS6 1.1 g/dL 0.8-1.7 ABN PROTEIN BAND 1 0.4 g/dL NONE DETECTED BETA 1 GLOBULIN 0.3 g/dL 0.4-0.6 BETA 2 GLOBULIN 0.4 g/dL 0.2-0.5 CBC WITH DIFF - 02/15/16 00:00 HCT 27.6 % 36.9-47.0 HGB 9.5 G/DL 12.0-16.0 MCH 29.2 PG 27-31 MCHC 34.4 G/DL 33-37 MCV 84.9 FL 81-99 MPV 9.8 FL 7.3-10.4 PLT 136 10^3u 130-400 RBC 3.3 10^6u 4.2-5.4 RDW 12.6 % 11.5-15.5 WBC 14.2 10^3u 4.8-10.8 DIFFERENTIAL, MANUAL - 02/15/16 00:00 BANDS 1.0 % 0-5 EOS 1.0 % 0-7 LYMPH 12.0 % 20-40 MONO 5.0 % 0-10 SEGS 81.0 % 40-70 PO4 - 02/15/16 00:00 PO4 5.3 MG/DL 1.9-4.5 MG - 02/15/16 00:00 MG 1.7 MG/DL 1.7-2.8 BMP - 02/15/16 00:00 BCR 11.5 10-20 BUN 62 MG/DL 7-18 CA 8.0 MG/DL 8.4-10.2 CL 97 MEQ/L 98-107 CO2 26.3 MEQ/L 22-28 CREA 5.38 MG/DL 0.6-1.0 EGFR 8 eGFR >=60 GLU 128 MG/DL 70-105 K 3.2 MEQ/L 3.5-5.1 NA 134 MEQ/L 134-145 OSMSC 287.5 MOSML 280-300 Anion Gap 10.7 8-16 C3 - 02/15/16 00:00 C3 101 mg/dL 90-180 C4 - 02/15/16 00:00 C4 25 mg/dL 16-47 KELLEY SCREEN - 02/15/16 00:00 KELLEY POSITIVE NEGATIVE ANA2 HOMOGENEOUS ANA3 1:40 titer Thyroid Stimulating Hormone - 12/15/16 19:05 TSH 6.74 mIU/mL 0.32-5.00 Free T4 - 02/02/17 11:47 Free T4 1.46 ng/dL 0.81-1.61 BMP - 05/04/17 09:10 Anion Gap 14 6-14 BUN 18 mg/dL 5-25 Calcium 8.8 mg/dL 8.3-10.4 Chloride 95 mmol/L 95-114 CO2 33 mEq/L 22-33 Creat 3.12 mg/dL 0.50-1.50 eGFR 14 mL/min/1.73m2 >59 Glucose 107 mg/dL 70-110 Osmo 289 280-295 Potassium 3.4 mmol/L 3.5-5.3 Sodium 139 mmol/L 134-148 Influenza virus A and B antigen detection - 07/17/17 06:32 FLU RESULT NEGATIVE FOR INFLUENZA A AND B ANTIGENS BY [facility] Complete blood count (CBC) with automated white blood cell (WBC) differential - 07/17/17 06:50 Blood leukocytes automated count (number/volume) 5.9 10*3/uL 4.3-11.0 Blood erythrocytes automated count (number/volume) 3.79 10*6/uL 4.35-5.85 Venous blood hemoglobin measurement (mass/volume) 11.4 g/dL 11.5-16.0 Blood hematocrit (volume fraction) 35 % 35-52 Automated erythrocyte mean corpuscular volume 93 [foz_us] 80-99 Automated erythrocyte mean corpuscular hemoglobin (mass per erythrocyte) 30 pg 25-34 Automated erythrocyte mean corpuscular hemoglobin concentration measurement ( mass/volume) 32 g/dL 32-36 Automated erythrocyte distribution width ratio 14.9 % 10.0-14.5 Automated blood platelet count (count/volume) 167 10*3/uL 130-400 Automated blood platelet mean volume measurement 10.8 [foz_us] 7.4-10.4 Automated blood neutrophils/100 leukocytes 59 % 42-75 Automated blood lymphocytes/100 leukocytes 27 % 12-44 Blood monocytes/100 leukocytes 7 % 0-12 Automated blood eosinophils/100 leukocytes 5 % 0-10 Automated blood basophils/100 leukocytes 1 % 0-10 Blood neutrophils automated count (number/volume) 3.5 10*3 1.8-7.8 Blood lymphocytes automated count (number/volume) 1.6 10*3 1.0-4.0 Blood monocytes automated count (number/volume) 0.4 10*3 0.0-1.0 Automated eosinophil count 0.3 10*3/uL 0.0-0.3 Automated blood basophil count (count/volume) 0.1 10*3/uL 0.0-0.1 PT panel in platelet poor plasma by coagulation assay - 07/17/17 07:23 Prothrombin time (PT) in platelet poor plasma by coagulation assay 14.7 s 12.2-14.7 INR in platelet poor plasma or blood by coagulation assay 1.1 0.8-1.4 Activated partial thromboplastin time (aPTT) in platelet poor plasma bycoagulation assay - 07/17/17 07:23 Activated partial thromboplastin time (aPTT) in platelet poor plasma bycoagulation assay 34 s 24-35 Comprehensive metabolic panel - 07/17/17 07:23 Serum or plasma sodium measurement (moles/volume) 138 mmol/L 135-145 Serum or plasma potassium measurement (moles/volume) 4.0 mmol/L 3.6-5.0 Serum or plasma chloride measurement (moles/volume) 98 mmol/L 98-107 Carbon dioxide 25 mmol/L 21-32 Serum or plasma anion gap determination (moles/volume) 15 mmol/L 5-14 Serum or plasma urea nitrogen measurement (mass/volume) 32 mg/dL 7-18 Serum or plasma creatinine measurement (mass/volume) 4.73 mg/dL 0.60-1.30 Serum or plasma urea nitrogen/creatinine mass ratio 7 NRG Serum or plasma creatinine measurement with calculation of estimated glomerular filtration rate 9 NRG Serum or plasma glucose measurement (mass/volume) 96 mg/dL 70-105 Serum or plasma calcium measurement (mass/volume) 8.8 mg/dL 8.5-10.1 Serum or plasma total bilirubin measurement (mass/volume) 0.7 mg/dL 0.1-1.0 Serum or plasma alkaline phosphatase measurement (enzymatic activity/volume) 127 U/L 40-136 Serum or plasma aspartate aminotransferase measurement (enzymatic activity/ volume) 27 U/L 5-34 Serum or plasma alanine aminotransferase measurement (enzymatic activity/volume ) 31 U/L 0-55 Serum or plasma protein measurement (mass/volume) 7.4 g/dL 6.4-8.2 Serum or plasma albumin measurement (mass/volume) 3.7 g/dL 3.2-4.5 Serum or plasma troponin i.cardiac measurement (mass/volume) - 07/17/17 07:23 Serum or plasma troponin i.cardiac measurement (mass/volume) < ng/ mL <0.30 Thyroid Stimulating Hormone - 08/22/17 16:20 TSH 5.15 mIU/mL 0.32-5.00 Urinalysis - 06/10/18 18:42 Icotest N/A Negative Urine Volume Urine Volume Sufficient (10mL) Urine Yeast No Yeast present Urine-Appearance Slightly Cloudy Clear Urine-Bacteria 1+ Urine-Bilirubin Negative Negative Urine-Blood 2+ Negative Urine-Color Yellow Colorless-Lt. Yellow Urine-Epithelial Cells TNTC Urine-Glucose Negative Negative Urine-Ketones Negative Negative Urine-Leukocytes 1+ Negative Urine-Nitrite Negative Negative Urine-Other Culture to follow Urine-pH 8.0 5-8.5 Urine-Protein 2+ Negative Urine-RBC 20-40/HPF Urine-Specific [place] 1.015 1.000-1.030 Urine-WBC 10-20/HPF Urobilinogen 1.0 0.2-1.0 Urine Culture - 06/10/18 18:55 PRELIM CULTURE RESULTS <10,000 Gram Positive Mixed Victoria [id number] Skin Contaminant FINAL CULTURE RESULTS <10,000 Gram Positive Mixed Victoria [id number] Skin Contaminant [id number] Further Workup done MEDIA PLATED Setup at 20:07 on 06/10/2018 CULTURE SOURCE void Complete blood count (CBC) with automated white blood cell (WBC) differential - 08/29/18 04:45 Blood leukocytes automated count (number/volume) 5.2 10*3/uL 4.3-11.0 Blood erythrocytes automated count (number/volume) 3.85 10*6/uL 4.35-5.85 Venous blood hemoglobin measurement (mass/volume) 11.5 g/dL 11.5-16.0 Blood hematocrit (volume fraction) 36 % 35-52 Automated erythrocyte mean corpuscular volume 95 [foz_us] 80-99 Automated erythrocyte mean corpuscular hemoglobin (mass per erythrocyte) 30 pg 25-34 Automated erythrocyte mean corpuscular hemoglobin concentration measurement ( mass/volume) 32 g/dL 32-36 Automated erythrocyte distribution width ratio 16.7 % 10.0-14.5 Automated blood platelet count (count/volume) 129 10*3/uL 130-400 Automated blood platelet mean volume measurement 10.6 [foz_us] 7.4-10.4 Automated blood neutrophils/100 leukocytes 42 % 42-75 Automated blood lymphocytes/100 leukocytes 43 % 12-44 Blood monocytes/100 leukocytes 12 % 0-12 Automated blood eosinophils/100 leukocytes 3 % 0-10 Automated blood basophils/100 leukocytes 1 % 0-10 Blood neutrophils automated count (number/volume) 2.2 10*3 1.8-7.8 Blood lymphocytes automated count (number/volume) 2.2 10*3 1.0-4.0 Blood monocytes automated count (number/volume) 0.6 10*3 0.0-1.0 Automated eosinophil count 0.2 10*3/uL 0.0-0.3 Automated blood basophil count (count/volume) 0.0 10*3/uL 0.0-0.1 PT panel in platelet poor plasma by coagulation assay - 08/29/18 04:45 Prothrombin time (PT) in platelet poor plasma by coagulation assay 15.3 s 12.2-14.7 INR in platelet poor plasma or blood by coagulation assay 1.2 0.8-1.4 Activated partial thromboplastin time (aPTT) in platelet poor plasma bycoagulation assay - 08/29/18 04:45 Activated partial thromboplastin time (aPTT) in platelet poor plasma bycoagulation assay 37 s 24-35 Comprehensive metabolic panel - 08/29/18 04:45 Serum or plasma sodium measurement (moles/volume) 139 mmol/L 135-145 Serum or plasma potassium measurement (moles/volume) 4.0 mmol/L 3.6-5.0 Serum or plasma chloride measurement (moles/volume) 95 mmol/L 98-107 Carbon dioxide 29 mmol/L 21-32 Serum or plasma anion gap determination (moles/volume) 15 mmol/L 5-14 Serum or plasma urea nitrogen measurement (mass/volume) 23 mg/dL 7-18 Serum or plasma creatinine measurement (mass/volume) 3.81 mg/dL 0.60-1.30 Serum or plasma urea nitrogen/creatinine mass ratio 6 NRG Serum or plasma creatinine measurement with calculation of estimated glomerular filtration rate 11 NRG Serum or plasma glucose measurement (mass/volume) 95 mg/dL 70-105 Serum or plasma calcium measurement (mass/volume) 9.1 mg/dL 8.5-10.1 Serum or plasma total bilirubin measurement (mass/volume) 0.8 mg/dL 0.1-1.0 Serum or plasma alkaline phosphatase measurement (enzymatic activity/volume) 97 U/L 40-136 Serum or plasma aspartate aminotransferase measurement (enzymatic activity/ volume) 56 U/L 5-34 Serum or plasma alanine aminotransferase measurement (enzymatic activity/volume ) 44 U/L 0-55 Serum or plasma protein measurement (mass/volume) 7.3 g/dL 6.4-8.2 Serum or plasma albumin measurement (mass/volume) 3.8 g/dL 3.2-4.5 CALCIUM CORRECTED 9.3 mg/dL 8.5-10.1 Magnesium - 08/29/18 04:45 Magnesium 2.1 mg/dL 1.8-2.4 Serum or plasma creatine kinase measurement (enzymatic activity/volume) - 08/29 04:45 Serum or plasma creatine kinase measurement (enzymatic activity/volume) 29 U/L 29-168 Serum or plasma creatine kinase MB measurement (enzymatic activity/volume) - 04:45 Serum or plasma creatine kinase MB measurement (enzymatic activity/volume) 0.9 ng/mL <6.6 Serum or plasma troponin i.cardiac measurement (mass/volume) - 08/29/18 04:45 Serum or plasma troponin i.cardiac measurement (mass/volume) < ng/ mL <0.30 Blood lactic acid measurement (moles/volume) - 08/29/18 04:45 Blood lactic acid measurement (moles/volume) 8.83 mmol/L 0.50-2.00 Serum or plasma amylase measurement (enzymatic activity/volume) - 08/29/18 04: 45 Serum or plasma amylase measurement (enzymatic activity/volume) 52 U /L 25-125 Lipase - 08/29/18 04:45 Lipase 23 U/L 8-78 Influenza virus A and B antigen detection - 08/29/18 04:50 FLU RESULT NEGATIVE FOR INFLUENZA A AND B ANTIGENS BY IA NRG Encounters ACCT No. Visit Date/Time Discharge Status Pt. Type Provider Facility Loc./Unit Complaint [id number] 02/15/2016 11:53:00 02/15/2016 11:53:00 DIS Outpatient HARVEY LEWIS [facility] EMR [id number] 02/14/2016 12:03:00 02/15/2016 11:15:00 DIS Inpatient BRIANNA WARD W [facility] ICU [id number] 02/14/2016 09:15:00 02/14/2016 12:03:00 DIS Emergency MAKENZIE ARCHER [facility] EMR [id number] 01/29/2015 09:15:00 01/29/2015 11:55:00 DIS Inpatient GRISEL CHINO [facility] OPS [id number] 08/17/2015 00:00:00 Document Registration [id number] 06/10/2018 18:17:00 06/10/2018 19:55:00 DIS Outpatient Leyla Smith [facility] ER [id number] 08/22/2017 00:00:00 08/22/2017 23:59:00 DIS Outpatient BUSTER DICK [id number] 05/04/2017 09:20:00 05/04/2017 23:59:00 DIS Outpatient BUSTER DICK [id number] 02/02/2017 11:47:00 02/02/2017 23:59:00 DIS Outpatient BUSTER DICK [id number] 12/15/2016 19:03:00 12/15/2016 23:59:00 DIS Outpatient Leyla Smith [id number] 07/20/2016 19:27:00 Document Registration [id number] 08/29/2018 04:31:00 08/29/2018 08:49:00 DIS Emergency VERENICE QUINTANA DO [facility] ER CP [id number] 07/01/2018 10:57:00 07/01/2018 12:41:00 DIS Emergency OG PENA [facility] ER RUQ BACK PAIN [id number] 07/17/2017 06:25:00 07/17/2017 08:53:00 DIS Emergency VERENICE QUINTANA DO [facility] ER SOA [id number] 04/19/2016 07:57:00 04/19/2016 11:00:00 DIS Outpatient GRISEL GIBBS MD [facility] WOUNDCARE WOUNDS ON BUTTOCKS [id number] 04/17/2016 09:28:00 04/17/2016 11:39:00 DIS Emergency ELSA JERONIMO DO [facility] ER R KNEE PAIN [id number] 03/21/2016 15:30:00 04/08/2016 13:40:00 DIS Inpatient MARLO TRISTAN MD [facility] IRF DEBILITY
== END 2018-08-29 08:49 | disposition short-term general hospital (02) ==
LOC: EDUNIT# 04:30 → ER 04:31
DX: J40 Bronchitis, not specified as acute or chronic (principal); E87.70 Fluid overload, unspecified; I12.0 Hypertensive chronic kidney disease with stage 5 chronic kidney disease or end stage renal disease; N18.6 End stage renal disease; I48.91 Unspecified atrial fibrillation; E87.2 Acidosis; E78.00 Pure hypercholesterolemia, unspecified; K21.9 Gastro-esophageal reflux disease without esophagitis; M10.9 Gout, unspecified; E03.9 Hypothyroidism, unspecified; D64.9 Anemia, unspecified; Z99.2 Dependence on renal dialysis; Z88.1 Allergy status to other antibiotic agents; Z98.890 Other specified postprocedural states; Z85.828 Personal history of other malignant neoplasm of skin; Z94.5 Skin transplant status
CPT/HCPCS: 36415; 71045; 80053; 82150; 82550; 82553; 83605; 83690; 83735; 84484; 85025; 85610; 85730; 87040; 87804; 93005; 93041; 96365; 96372; 96375

== ENCOUNTER 2018-08-31 17:24 | Emergency (ER) | payer MEDICARE ==
[~2018-08-31] VITALS: Ht 165.1 cm; Wt 67.6 kg
--- OUTSIDE RECORDS SUMMARY | 2018-08-31 17:34 | XMS REPORT | Continuity of Care Document ---
Demographics x Preferred Language Unknown Marital Status Unknown Voodoo Affiliation Unknown Race Unknown Ethnic Group Unknown Author Author [facility] Organization [facility] Address Unknown Phone Unavailable Allergies Active Description Code Type Severity Reaction Onset Reported/Identified Relationship to Patient Clinical Status Yes cephalexin 2716 Drug Allergy N/ A N/A Confirmed or Verified Yes Keflex 6608 Drug Allergy N/A Hives Yes No known allergies [id number] Drug Allergy N/A N/A Confirmed but inactive Yes ALBUMIN, HUMAN ALBUMIN, HUMAN MODERATE Yes LEVOTHYROXINE LEVOTHYROXINE MODERATE Yes SULFA (SULFONAMIDE ANTIBIOTICS) SULFA (SULFONAMIDE A MODERATE Yes ALBUMIN, HUMAN MODERATE ITCHING Yes LEVOTHYROXINE MODERATE ITCHING Yes SULFA (SULFONAMIDE ANTIBIOTICS) MODERATE DERMATOLOGICAL - HIV Yes albumin colloid, human [id number] Drug Allergy Unknown N/A 03/21/2016 Yes cephalexin [id number] Drug Allergy Unknown N/A 03/21/2016 Medications There is no data. 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 03/29/2016 MARLO TRISTAN MD Ot D63.8 ANEMIA IN OTHER CHRONIC DISEASES CLASSIF 03/29/2016 AMRLO TRISTAN MD Ot E03.9 HYPOTHYROIDISM, UNSPECIFIED 03/29/2016 [...] ANEMIA IN OTHER CHRONIC DISEASES CLASSIF 03/31/2016 MARLO TRISTAN MD E Ot E03.9 HYPOTHYROIDISM, [...] M17.11 UNILATERAL PRIMARY OSTEOARTHRITIS, RIGHT 04/17/2016 ELSA JERONIMO DO Ot M25.461 EFFUSION, RIGHT KNEE 04/17/2016 [...] Z92.21 PERSONAL HISTORY OF ANTINEOPLASTIC CHEMO 07/03/2018 BECKY OG Ot D64.9 ANEMIA, UNSPECIFIED 07/03/2018 BECKY OG Ot E03.9 HYPOTHYROIDISM, UNSPECIFIED 07/03/2018 BECKY OG Ot E78.00 PURE HYPERCHOLESTEROLEMIA, UNSPECIFIED 07/03/2018 BECKY [...] PERSONAL HISTORY OF OTHER MALIGNANT NEOP 07/03/2018 COCO PENAIS Ot Z87.891 PERSONAL HISTORY OF NICOTINE DEPENDENCE 07/03/2018 COCO PENAIS Ot Z88.8 ALLERGY STATUS TO OTH DRUG/MEDS/BIOL SUB 07/03/2018 COCO PENAIS Ot Z92.21 PERSONAL HISTORY OF ANTINEOPLASTIC CHEMO 08/31/2018 MARIANO DO, VERENICE K Ot D64.9 ANEMIA, UNSPECIFIED 08/31/2018 MARIANO DO, VERENICE K Ot E03.9 HYPOTHYROIDISM, UNSPECIFIED 08/31/2018 MARIANO DO, VERENICE K Ot E78.00 PURE HYPERCHOLESTEROLEMIA, UNSPECIFIED 08/31/2018 MARIANO DO, VERENICE K Ot E87.2 ACIDOSIS 08/31/2018 MARIANO DO, VERENICE K Ot E87.70 FLUID OVERLOAD, UNSPECIFIED 08/31/2018 VERENICE QUINTANA DO Ot I12.0 HYP 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 08/31/2018 VERENICE QUINTANA DO Ot I48.91 UNSPECIFIED ATRIAL FIBRILLATION 08/31/2018 VERENICE QUINTANA DO Ot J40 BRONCHITIS, NOT SPECIFIED ACUTE OR CH 08/31/2018 MARIANO HOLLIS VERENICE Li Ot K21.9 GASTRO-ESOPHAGEAL REFLUX DISEASE WITHOUT 08/31/2018 MARIANO HOLLIS VERENICE Li Ot M10.9 GOUT, UNSPECIFIED 08/31/2018 MARIANO HOLLIS VERENICE Li Ot 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 08/31/2018 VERENICE QUINTANA DO Ot R07.9 CHEST PAIN, UNSPECIFIED 08/31/2018 MARIANO HOLLIS VERENICE Li Ot Z85.828 PERSONAL HISTORY OF OTHER MALIGNANT NEOP 08/31/2018 MARIANO HOLLIS VERENICE Li Ot Z88.1 ALLERGY STATUS TO OTHER ANTIBIOTIC AGENT 08/31/2018 MARIANO HOLLIS VERENICE Li Ot 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 08/31/2018 MARIANO HOLLIS VERENICE Li Ot Z98.890 OTHER SPECIFIED POSTPROCEDURAL STATES 08/31/2018 VERENICE QUINTANA DO Ot Z99.2 DEPENDENCE ON RENAL DIALYSIS Procedures Code Description [place] [address] ROUTINE VENIPUNCTURE 02/14/[address] HEAD/BRAIN W/O DYE 02/14/2016 55008 CHEST X-RAY 02/14/2016 56580 COMPREHEN METABOLIC PANEL 02/14/2016 13172 URINALYSIS, AUTO W/SCOPE 02/14/2016 30084 ASSAY OF CK (CPK) 02/14/2016 23976 CREATINE, MB FRACTION 02/14/2016 30740 NATRIURETIC PEPTIDE 02/14/2016 94457 ASSAY OF TROPONIN, QUANT 02/14/2016 22350 COMPLETE CBC W/AUTO DIFF WBC 02/14/2016 77389 HYDRATE IV INFUSION, ADD-ON 02/14/2016 64322 THER/PROPH/DIAG INJ, IV PUSH 02/14/2016 51869 TX/PRO/DX INJ NEW DRUG ADDON 02/14/2016 58904 EMERGENCY DEPT VISIT 02/14/2016 J3490 DRUGS UNCLASSIFIED [...] NG/ML 0.0-0.4 PRO-BNP - 02/14/16 00:00 PRO-BNP 34402 PG/ML 0-900 CKMB - 02/14/16 00:00 CKMB [...] NG/ML 0.0-0.4 PRO-BNP - 02/14/16 00:00 PRO-BNP 93600 PG/ML 0-900 BMP - 02/14/16 00:00 BCR [...] FOR INFLUENZA A AND B ANTIGENS BY [facility] Complete blood count (CBC) with automated [...] 5-8.5 Urine-Protein 2+ Negative Urine-RBC 20-40/HPF Urine-Specific [place] 1.015 1.000-1.030 Urine-WBC 10-20/HPF Urobilinogen 1.0 0.2-1.0 Urine Culture - 06/10/18 18:55 PRELIM CULTURE RESULTS <10,000 Gram Positive Mixed Victoria [id number] Skin Contaminant FINAL CULTURE RESULTS <10,000 Gram Positive Mixed Victoria [id number] Skin Contaminant [id number] Further Workup done MEDIA PLATED Setup at [...] - 08/29/18 04:45 Lipase 23 U/L 8-78 Bacterial blood culture - 08/29/18 04:45 Bacterial blood culture NG NRG Influenza virus A and B antigen detection - 08/29/18 04:50 FLU RESULT NEGATIVE FOR INFLUENZA A AND B ANTIGENS BY IA NRG Bacterial blood culture - 08/29/18 06:05 Bacterial blood culture NG NRG Encounters ACCT No. Visit Date/Time Discharge Status Pt. Type Provider Facility Loc./Unit Complaint [id number] 02/15/2016 11:53:00 02/15/2016 11:53:00 DIS Outpatient HARVEY LEWIS W [facility] EMR [id number] 02/14/2016 12:03:00 02/15/2016 11:15:00 DIS Inpatient BRIANNA WARD W [facility] ICU [id number] 02/14/2016 09:15:00 02/14/2016 12:03:00 DIS Emergency MAKENZIE ARCHER [facility] EMR [id number] 01/29/2015 09:15:00 01/29/2015 11:55:00 DIS Inpatient GRISEL CHINO [facility] OPS [id number] 08/17/2015 00:00:00 Document Registration [id number] 06/10/2018 18:17:00 06/10/2018 19:55:00 DIS [facility] [id number] 08/22/2017 00:00:00 08/22/2017 23:59:00 DIS Outpatient BUSTER DICK [id number] 05/04/2017 09:20:00 05/04/2017 23:59:00 DIS Outpatient BUSTER DICK [id number] 02/02/2017 11:47:00 02/02/2017 23:59:00 DIS Outpatient BUSTER DICK [id number] 12/15/2016 19:03:00 12/15/2016 23:59:00 DIS Outpatient Leyla Smith [id number] 07/20/2016 19:27:00 Document Registration [id number] 08/29/2018 04:31:00 08/29/2018 08:49:00 DIS Outpatient VERENICE QUINTANA DO [facility] ER CP [id number] 07/01/2018 10:57:00 07/01/2018 12:41:00 DIS Emergency OG PENA [facility] ER RUQ BACK PAIN [id number] 07/17/2017 06:25:00 07/17/2017 08:53:00 DIS Emergency VERENICE QUINTANA DO [facility] ER SOA [id number] 04/19/2016 07:57:00 04/19/2016 11:00:00 DIS Outpatient SAI CANADA, GRISEL Chung [facility] WOUNDCARE WOUNDS ON BUTTOCKS [id number] 04/17/2016 09:28:00 04/17/2016 11:39:00 DIS Emergency ELSA JERONIMO DO [facility] ER R KNEE PAIN [id number] 03/21/2016 15:30:00 04/08/2016 13:40:00 DIS Inpatient MARLO TRISTAN MD [facility] IRF DEBILITY [id number] 08/31/2018 17:25:00 ACT Emergency SOBEIDA GARCIA MD [facility] ER ALTERED MENTAL STATUS
[2018-08-31] MEDS ORDERED: LEVO500T80 PO (18:07)
[2018-08-31] MEDS ORDERED: GUAI120016 PO (18:07)
[2018-08-31] MEDS ORDERED: APIX2.5T PO (18:07)
[2018-08-31] MEDS ORDERED: AMIO200T4 PO (18:07)
--- NOTE | 2018-08-31 18:31 | ED Lower Extremity ---
General Chief Complaint: Lower Extremity Stated Complaint: ALTERED MENTAL STATUS Nursing Triage Note: pt presents to ed from home accompanied by daughter. Pt daughter reports pt was discharged from [facility] yesterday for dailysis and cough/cold s/s . Pt reports r leg pain and daughter reports increase in confusion. according to daughter pt became dizzy at home when walking and was assisted by horse rider to the floor. pt denies any injury related to fall Nursing Sepsis Screen: No Definite Risk Source: patient, family Exam Limitations: no limitations History of Present Illness Date Seen by Provider: Aug 31, 2018 Time Seen by Provider: 18:15 Initial Comments Patient presents to the ER by private conveyance with her family with complaints of pain in the back of her right leg and behind her knee. She recently was started on Levaquin and Mucinex or a productive cough. She was transferred to [facility] for pneumonia and dialysis treatment through her double- lumen dialysis catheter on the right. [facility] repeated an x-ray did not see anything that looks more like pneumonia. She did seem to have some extra fluid on her lungs perhaps she had some volume overload they did dialysis and then send her home. When she got home she was able to walk to her dialysis appointment and after outpatient dialysis she was able to walk back to the house but then she said she felt weak and having some cramping pain in the back of her calves both sides with right worse than left. She is started the Falter so her family members helped her to the ground and called other family to come help get her to the ER for a recheck. She is on Eliquis and she takes all of her medicines routinely she says. She's not had any fevers or chills. Eating and drinking normally. Allergies and Home Medications Allergies Coded Allergies: cephalexin (Verified Allergy, Unknown, 03/21/16) Home Medications Apixaban 2.5 Mg Tablet, 2.5 MG PO BID, (Reported) Docusate Sodium 100 Mg Capsule, 100 MG PO BID Prescribed by: MARLO TRISTAN on 04/07/161856 Levofloxacin 500 Mg Tablet, 500 MG PO Q48H, (Reported) Loratadine 10 Mg Tablet, 10 MG PO DAILY Prescribed by: MARLO TRISTAN on 04/07/161856 Pantoprazole Sodium 40 Mg Tablet.dr, 40 MG PO DAILY@0700 Prescribed by: MARLO TRISTAN on 7/21/16 1857 Patient Home Medication List Home Medication List Reviewed: Yes Review of Systems Constitutional: No chills, No diaphoresis, No fever EENTM: No hearing loss, No ear pain Respiratory: cough, phlegm; No short of breath, No wheezing Cardiovascular: No chest pain, No palpitations Gastrointestinal: No abdominal pain, No constipation, No diarrhea, No nausea, No vomiting Genitourinary: No discharge, No dysuria Musculoskeletal: No back pain, No joint pain Skin: No pruritus, No rash Past Schwxer-Sivnfw-Rtrdgh Hx Patient Social History Alcohol Use: Denies Use Recreational Drug Use: No Smoking Status: Never a Smoker Type Used: Cigarettes Former Smoker, Quit: Sep 04, 1978 2nd Hand Smoke Exposure: Yes Recent Foreign Travel: No Contact w/Someone Who Travel: No Recent Infectious Disease Expo: No Recent Hopitalizations: No Immunizations Up To Date Date of Pneumonia Vaccine: Mar 21, 2016 Seasonal Allergies Seasonal Allergies: Yes Past Medical History Surgeries: Yes Dialysis, Eye Surgery, Gallbladder, Neurological, Vascular Surgery Respiratory: Yes (FLUID OVERLOAD; BRONCHITIS) Cardiac: Yes (FLUID OVERLOAD; INTERMITTENT ATRIAL FIBRILLATION; CEREBRAL ANEURYSM ) Aneurysm, Atrial Fibrillation, Chronic Edema/Swelling, High Cholesterol, Hypertension Neurological: Yes (S/P REPAIR OF CEREBRAL ANEURYSM) COPRA SAMPLER History: Menopausal Genitourinary: Yes Renal Failure, Dialysis Gastrointestinal: Yes Gastroesophageal Reflux Musculoskeletal: Yes Gout Endocrine: Yes Hypothyroidsim HEENT: Yes Cataract Hearing Impairment: Hard of Hearing, Bilateral Hearing Aide Cancer: Yes Skin Did You Recieve Any Treatments: Yes What Type of Treatment Did You: Surgical Intervention Psychosocial: No Integumentary: Yes Blood Disorders: Yes (CHRONIC ANEMIA) Physical Exam Vital Signs Vital Signs - First Documented 08/31/18 17:54 Temp 98.1 Pulse 77 Resp 20 B/P (MAP) 105/70 (82) Pulse Ox 98 Capillary Refill : Less Than 3 Seconds Height, Weight, BMI Height: 5'5.00" Weight: 149lbs. 7.0oz. 67.541273tc; 32.0 BMI Method:Stated General Appearance: WD/WN, no apparent distress HEENT: PERRL/EOMI, normal ENT inspection, pharynx normal Neck: non-tender, full range of motion, normal inspection, other (right-sided tunneled double-lumen dialysis catheter in place with the insertion site With gauze but no evidence of erythema induration or discharge.) Cardiovascular: normal peripheral pulses, regular rate, rhythm Respiratory: chest non-tender, lungs clear, normal breath sounds, no respiratory distress, no accessory muscle use Gastrointestinal: normal bowel sounds, non tender, soft Legs: bilateral leg normal range of motion, bilateral leg no evidence of injury , bilateral leg soft tissue tenderness (right worse than left), bilateral leg swelling (nonpitting mild to moderate) Knees: bilateral knee non-tender, bilateral knee normal inspection, bilateral knee normal range of motion, bilateral knee no evidence of injury Ankles: bilateral ankle non-tender, bilateral ankle normal inspection, bilateral ankle normal range of motion, bilateral ankle no evidence of injury Feet: bilateral foot non-tender, bilateral foot normal range of motion, bilateral foot no evidence of injury, bilateral foot swelling (mild, chronic, nonpitting) Neurologic/Tendon: normal sensation, normal motor functions, normal tendon functions, responds to pain Neurologic/Psychiatric: no motor/sensory deficits, alert, normal mood/affect, oriented x 3 Skin: normal color, warm/dry, other (various ecchymoses along her legs with different stages of healing but no evidence of erythema or warmth or cellulitis) Progress/Results/Core Measures Results/Orders Lab Results Laboratory Tests Test 08/31/18 19:02 Range/Units White Blood Count 7.0 4.3-11.0 10^3/uL Red Blood Count 3.04 L 4.35-5.85 10^6/uL Hemoglobin 9.1 #L 11.5-16.0 G/DL Hematocrit 28 L 35-52 % Mean Corpuscular Volume 93 80-99 FL Mean Corpuscular Hemoglobin 30 25-34 PG Mean Corpuscular Hemoglobin Concent 32 32-36 G/DL Red Cell Distribution Width 16.3 H 10.0-14.5 % Platelet Count 116 L 130-400 10^3/uL Mean Platelet Volume 10.4 7.4-10.4 FL Neutrophils (%) (Auto) 70 42-75 % Lymphocytes (%) (Auto) 18 12-44 % Monocytes (%) (Auto) 11 0-12 % Eosinophils (%) (Auto) 1 0-10 % Basophils (%) (Auto) 0 0-10 % Neutrophils # (Auto) 4.9 1.8-7.8 X 10^3 Lymphocytes # (Auto) 1.3 1.0-4.0 X 10^3 Monocytes # (Auto) 0.7 0.0-1.0 X 10^3 Eosinophils # (Auto) 0.1 0.0-0.3 10^3/uL Basophils # (Auto) 0.0 0.0-0.1 10^3/uL Sodium Level 135 135-145 MMOL/L Potassium Level 3.4 L 3.6-5.0 MMOL/L Chloride Level 93 L 98-107 MMOL/L Carbon Dioxide Level 32 21-32 MMOL/L Anion Gap 10 5-14 MMOL/L Blood Urea Nitrogen 14 7-18 MG/DL Creatinine 1.86 H 0.60-1.30 MG/DL Estimat Glomerular Filtration Rate 26 BUN/Creatinine Ratio 8 Glucose Level 111 H 70-105 MG/DL Calcium Level 7.8 L 8.5-10.1 MG/DL Corrected Calcium 8.4 L 8.5-10.1 MG/DL Magnesium Level 1.7 L 1.8-2.4 MG/DL Total Bilirubin 0.6 0.1-1.0 MG/DL Aspartate Amino Transf (AST/SGOT) 36 H 5-34 U/L Alanine Aminotransferase (ALT/SGPT) 42 0-55 U/L Alkaline Phosphatase 82 40-136 U/L C-Reactive Protein High Sensitivity 2.03 H 0.00-0.50 MG/DL Total Protein 5.8 L 6.4-8.2 GM/DL Albumin 3.2 3.2-4.5 GM/DL My Orders Orders - GREGORIA MACKENZIE Cbc With Automated Diff (08/31/18 18:21) Comprehensive Metabolic Panel (08/31/18 18:21) Hs C Reactive Protein (08/31/18 18:21) Magnesium (08/31/18 18:21) Saline Lock/Iv-Start (08/31/18 18:21) Magnesium Oxide Tablet (Mag Ox Tablet) (08/31/18 19:45) Medications Given in ED Current Medications Medications Dose Ordered Sig/Nik Route Start Time Stop Time Status Last Admin Dose Admin Magnesium Oxide 400 mg ONCE ONCE PO 08/31/18 19:45 08/31/18 19:46 DC 08/31/18 19:55 400 MG Vital Signs/I&O 08/31/18 17:54 Temp 98.1 Pulse 77 Resp 20 B/P (MAP) 105/70 (82) Pulse Ox 98 Blood Pressure Mean: 82 Progress Progress Note #1: Time: 18:33 Progress Note We'll check some electrolytes she has been causing some of her leg cramping. Other possibility would be Levaquin causing a tendinitis. DVT, rule out clinically because she is on Eliquis. There is no clinical evidence for cellulitis. 2 days ago patient was seen in this ER with history of cough and feeling full of fluid and orthopnea. No mention of fevers. Laboratory and chest x-ray did not demonstrate any infectious component but rather fluid volume overload with left chest effusion. She was sent to [facility] for inpatient dialysis and her move the fluid volume and manage her respiratory distress. Not sure what the family thinks she had a pneumonia. She was started on doxycycline and Tessalon Perles outpatient by primary care so maybe this led to some confusion. Family said that they were not going to continue antibiotics are any Mucinex and except that they insisted on it so they were discharged on Levaquin and Mucinex. Family credit the Mucinex with resolution of the patient's dyspnea and improvement of her phlegm production. Progress Note #2: Time: 20:01 Progress Note On examination of the knee there is a small nodule behind her left knee which could be either a large lymph node or Conteh cyst. There does not seem to be any fluid blockage, DVTs. She does have some tenderness and not so in her right calf. She says it Is more painful and worrisome than her knee. We'll give her a hydrocodone tablet. Doesn't seem to be any acutely dangerous pathology. Recommend heat, hydrocodone, Tylenol and elevation of the leg as well as she should consider getting home health to do physical therapy she's having problems with deconditioning. Finally the timing of the Levaquin and her symptoms is uncanny enough to consider a tendinopathy so with encouragement to stop the Levaquin. There is no evidence of any bacterial infection, pneumonia etc. on history, examination or in the labs from 2 days ago or today. I do not think that she needs to restart an antibiotic at this time. Follow-up with primary care next week. Departure Impression Primary Impression: Tendinopathy of lower extremity Additional Impressions: Conteh's cyst, unruptured Qualified Codes: M71.21 - Synovial cyst of popliteal space [Conteh], right knee History of renal dialysis Hypomagnesemia Disposition: 01 HOME, SELF-CARE Condition: Stable Departure-Patient Inst. Decision time for Depature: 20:03 Referrals: BUSTER DICK MD (PCP/Family) Primary Care Physician Patient Instructions: Achilles Tendinopathy (DC) Add. Discharge Instructions: Discontinue the Levaquin. It's okay to continue the Mucinex. Use Tylenol and or heat and muscle rubs to both legs as necessary for pain. Keep them elevated when not in use and encourage activity throughout the day. You can also use hydrocodone one to one half tablet every 6 hours as needed for breakthrough pain. Follow-up with primary care in the next 1-2 weeks. All discharge instructions reviewed with patient and/or family. Voiced understanding. Scripts Hydrocodone Bit/Acetaminophen (Hydrocodone/Acetaminophen 5/325mg Tablet) 1 Tab Tab 0.5-1 EACH PO Q6H PRN for PAIN-MODERATE MDD 10 for 14 Days, #10 TAB 0 Refills Prov: GREGORIA MACKENZIE 08/31/18 Copy Copies To 1: BUSTER DICK MD, TITUS J Aug 31, 2018 18:31
[2018-08-31 19:19] LABS: BASOPHILS % (AUTO) 0 % (0-10); EOSINOPHILS # (AUTO) 0.1 10^3/uL (0.0-0.3); EOSINOPHILS % (AUTO) 1 % (0-10); HEMATOCRIT 28 % (35-52); HEMOGLOBIN 9.1 G/DL (11.5-16.0); LYMPHOCYTES # (AUTO) 1.3 X 10^3 (1.0-4.0); LYMPHOCYTES % (AUTO) 18 % (12-44); MEAN CORPUSCULAR HEMOGLOBIN 30 PG (25-34); MEAN CORPUSCULAR HGB CONC 32 G/DL (32-36); MEAN CORPUSCULAR VOLUME 93 FL (80-99); MEAN PLATELET VOLUME 10.4 FL (7.4-10.4); MONOCYTES # (AUTO) 0.7 X 10^3 (0.0-1.0); MONOCYTES % (AUTO) 11 % (0-12); NEUTROPHILS # (AUTO) 4.9 X 10^3 (1.8-7.8); NEUTROPHILS % (AUTO) 70 % (42-75); PLATELET COUNT 116 10^3/uL (130-400); RED BLOOD COUNT 3.04 10^6/uL (4.35-5.85); RED CELL DISTRIBUTION WIDTH 16.3 % (10.0-14.5)
[2018-08-31 19:33] LABS: ALBUMIN 3.2 GM/DL (3.2-4.5); BILIRUBIN,TOTAL 0.6 MG/DL (0.1-1.0); CALCIUM 7.8 MG/DL (8.5-10.1); CREATININE SERUM 1.86 MG/DL (0.60-1.30); MAGNESIUM 1.7 MG/DL (1.8-2.4); POTASSIUM 3.4 MMOL/L (3.6-5.0); TOTAL PROTEIN 5.8 GM/DL (6.4-8.2)
[2018-08-31] MEDS ORDERED: MAGNESIUM OXIDE (MAG-OX)400 MG TAB PO ONE (19:45)
[2018-08-31] MEDS ORDERED: HYDROcodone/APAP 5 MG/325 MG (LORTAB) TAB PO ONE (20:00)
[2018-08-31] MEDS ORDERED: ACHD5005 PO (20:05)
[2018-08-31 20:12] VITALS: BP 119/72
[2018-09-01] MEDS ORDERED: PANT40TA3 PO (09:12)
[2018-09-01] MEDS ORDERED: DILT120C53 PO (09:12)
[2018-09-01] MEDS ORDERED: BENZ-36 PO (09:12)
[2018-09-01] MEDS ORDERED: POTA-51 PO (09:12)
[2018-09-01] MEDS ORDERED: DOCU-143 PO (09:12)
== END 2018-08-31 20:14 | disposition home or self-care (01) ==
LOC: EDUNIT# 17:24 → ER 17:25
DX: M76.71 Peroneal tendinitis, right leg (principal); M71.21 Synovial cyst of popliteal space [Baker], right knee; E83.42 Hypomagnesemia; I48.91 Unspecified atrial fibrillation; E78.00 Pure hypercholesterolemia, unspecified; E03.9 Hypothyroidism, unspecified; M10.9 Gout, unspecified; K21.9 Gastro-esophageal reflux disease without esophagitis; I12.0 Hypertensive chronic kidney disease with stage 5 chronic kidney disease or end stage renal disease; N18.6 End stage renal disease; D63.1 Anemia in chronic kidney disease; Z99.2 Dependence on renal dialysis; Z87.820 Personal history of traumatic brain injury; Z85.820 Personal history of malignant melanoma of skin; Z87.01 Personal history of pneumonia (recurrent); Z79.01 Long term (current) use of anticoagulants; Z88.8 Allergy status to other drugs, medicaments and biological substances; Z87.891 Personal history of nicotine dependence; Z98.890 Other specified postprocedural states
CPT/HCPCS: 36415; 80053; 83735; 85025; 86141; 99283

== ENCOUNTER 2018-08-31 21:53 | Observation (INO) | payer MEDICARE ==
[~2018-08-31] VITALS: Ht 165.1 cm; Wt 65.8 kg
[~2018-08-31 21:53] MED LIST changes: +APIX2.5T PO; +GUAI120016 PO; +LEVO500T80 PO
--- NOTE | 2018-08-31 22:19 | ED Fall/Injury ---
General Stated Complaint: SYNCOPAL EPISODE,R LEG PAIN Source: patient Exam Limitations: no limitations History of Present Illness Date Seen by Provider: Aug 31, 2018 Time Seen by Provider: 21:56 Initial Comments Patient represent the same day to the ER by EMS with chief complaint that she was walking into the house and got and she was walking between her daughter and son-in-law and said she was having some pain in her legs that caused her to feel nauseated and so she slumped down. They deny that she struck her head but she did pass out and was only unconscious momentarily. When she came to she was retching but did not vomit. She's not having any nausea now. She has no pain anywhere except for in her legs. She says the pain pill we gave her about an hour ago did help her pain. Her family said that they're not going to be able to keep her home since she is having this weakness and falls. Allergies and Home Medications Allergies Coded Allergies: cephalexin (Verified Allergy, Unknown, 03/21/16) Home Medications Apixaban 2.5 Mg Tablet, 2.5 MG PO BID, (Reported) Docusate Sodium 100 Mg Capsule, 100 MG PO BID Prescribed by: MARLO TRISTAN on 04/07/161856 Hydrocodone Bit/Acetaminophen 1 Tab Tab, 0.5-1 EACH PO Q6H PRN for PAIN-MODERATE Prescribed by: GREGORIA MACKENZIE on 08/31/182004 Levofloxacin 500 Mg Tablet, 500 MG PO Q48H, (Reported) Loratadine 10 Mg Tablet, 10 MG PO DAILY Prescribed by: MARLO TRISTAN on 04/07/161856 Pantoprazole Sodium 40 Mg Tablet.dr, 40 MG PO DAILY@0700 Prescribed by: MARLO TRISTAN on 04/07/161856 Patient Home Medication List Home Medication List Reviewed: Yes Review of Systems Review of Systems Constitutional: No chills, No diaphoresis Eyes: Denies Blindness, Denies Blurred Vision Ears, Nose, Mouth, Throat: denies ear pain, denies ear discharge Respiratory: No cough, No dyspnea on exertion Cardiovascular: No chest pain, No palpitations Gastrointestinal: No abdominal pain, No constipation, No diarrhea Genitourinary: No discharge, No dysuria Past Zlcgatb-Qcpiff-Nfbdba Hx Patient Social History Alcohol Use: Denies Use Type Used: Cigarettes Former Smoker, Quit: Sep 04, 1978 2nd Hand Smoke Exposure: Yes Recent Foreign Travel: No Contact w/Someone Who Travel: No Recent Hopitalizations: No Immunizations Up To Date Date of Pneumonia Vaccine: Mar 21, 2016 Seasonal Allergies Seasonal Allergies: Yes Past Medical History Surgeries: Yes Dialysis, Eye Surgery, Gallbladder, Neurological, Vascular Surgery Respiratory: Yes (FLUID OVERLOAD; BRONCHITIS) Cardiac: Yes (FLUID OVERLOAD; INTERMITTENT ATRIAL FIBRILLATION; CEREBRAL ANEURYSM ) Aneurysm, Atrial Fibrillation, Chronic Edema/Swelling, High Cholesterol, Hypertension Neurological: Yes (S/P REPAIR OF CEREBRAL ANEURYSM) [employer] LE[employer]ER History: Menopausal Genitourinary: Yes Renal Failure, Dialysis Gastrointestinal: Yes Gastroesophageal Reflux Musculoskeletal: Yes Gout Endocrine: Yes Hypothyroidsim HEENT: Yes Cataract Hearing Impairment: Hard of Hearing, Bilateral Hearing Aide Cancer: Yes Skin Did You Recieve Any Treatments: Yes What Type of Treatment Did You: Surgical Intervention Psychosocial: No Integumentary: Yes Blood Disorders: Yes (CHRONIC ANEMIA) Physical Exam Vital Signs Capillary Refill : Height, Weight, BMI Height: 5'5.00" Weight: 149lbs. 7.0oz. [id number]; 32.0 BMI Method:Stated General Appearance: WD/WN, no apparent distress HEENT: PERRL/EOMI, normal ENT inspection, TMs normal, pharynx normal, other ( atraumatic head without raccoon eyes or Mcknight sign.) Neck: non-tender, full range of motion, supple, normal inspection Cardiovascular: normal peripheral pulses, regular rate, rhythm Respiratory: chest non-tender, lungs clear, normal breath sounds, no respiratory distress, no accessory muscle use Gastrointestinal: normal bowel sounds, non tender, soft Neurologic/Psychiatric: alert, normal mood/affect, oriented x 3, other ( chronic hard of hearing) Naty Coma Score Best Eye Response: (4) Open Spontaneously Best Verbal Response: (5) Oriented Best Motor Response: (6) Obeys Commands [place] Total: 15 Progress/Results/Core Measures Results/Orders Lab Results Laboratory Tests Test 08/31/18 19:03 Range/Units Total Creatine Kinase 71 29-168 U/L My Orders Orders - GREGORIA MACKENZIE Creatine Kinase (08/31/18 22:03) Ct Head/Cervical Spine Wo (08/31/18 22:25) Progress Progress Note : Time: 23:20 Progress Note She is on blood thinners, had a fall passed out and some nausea so we will do a CT of the head and neck to rule out any intracranial pathology or fracture. We obtained a creatinine kinase which was negative. Called [facility] and they said that they can take the patient him and have family or checkers transport to and from outpatient dialysis. They should be able to evaluate the patient for possible admission tomorrow if we will put a rehabilitation and PT OT eval on the order set. Diagnostic Imaging Diagonstic Imaging: CT (noncontrast) Plain Films/CT/US/NM/MRI: c-spine, head Comments No acute findings intracranially. No acute findings on the C-spine. Left pleural effusion seen. Reviewed: Reviewed by Me Departure Communication (Admissions) Time/Spoke to Admitting Phy: 23:25 Discussed the case with Dr. Fisher and if she can do her dialysis through laboratory rehabilitation unit outpatient and she will be okay watching the patient over the weekend. Impression Primary Impression: Physical debility Additional Impressions: Leg pain, bilateral History of renal dialysis Disposition: ADMITTED INPATIENT Condition: Stable Admissions Decision to Admit Reason: Admit from ER (General) Decision to Admit/Date: Aug 31, 2018 Time/Decision to Admit Time: 23:26 Departure-Patient Inst. Referrals: BUSTER DICK MD (PCP/Family) Primary Care Physician GREGORIA MACEKNZIE Aug 31, 2018 22:18
[2018-09-01 00:36] VITALS: BP 136/63
[2018-09-01] MEDS ORDERED: ONDANSETRON 4 MG (ZOFRAN) ORAL DISSOLVE TAB PO PRN (01:00)
[2018-09-01 04:00] VITALS: BP 122/61
--- NOTE | 2018-09-01 06:10 | Diagnostic Imaging Report ---
PROCEDURE: CT head and CT cervical spine without contrast. TECHNIQUE: Multiple contiguous axial images were obtained through the brain and cervical spine without the use of intravenous contrast. Sagittal and coronal reformations through the cervical spine were then performed. Indication: Followup syncopal episode, head and neck pain. End-stage renal disease. Comparison: Cervical spine CT 07/01/2018. Discussion: Head: Diffuse brain volume loss is likely age related. White matter hypoattenuation is nonspecific though not greater than expected for age related chronic small vessel ischemic disease. No acute intracranial hemorrhage, mass, midline shift, or hydrocephalus. Previous left frontal craniotomy is noted. The orbits, mastoid air cells, and calvarium are otherwise unremarkable. Moderate chronic sinus mucosal thickening. Cervical spine: Grade 1 anterolisthesis of C2 on C3 is stable. Advanced degenerative disc disease and facet arthropathy is again noted diffusely throughout the cervical spine. No acute fracture identified. Soft tissues are unremarkable. Layering left pleural effusion is incompletely viewed. Impression: 1. Senescent changes as described. No acute intracranial abnormality identified. 2. Stable degenerative disease within the cervical spine. 3. Layering left pleural effusion, incompletely viewed. 4. Agree with preliminary report. Dictated by: Dictated on workstation # [id number]
[2018-09-01] MEDS ORDERED: LEVOTHYROXINE 25 MCG (LEVOTHROID) TAB PO SCH (06:30)
[2018-09-01 08:00] VITALS: BP 120/68
[2018-09-01] MEDS ORDERED: PATIENT MAY USE OWN MEDS, ALL MC SCH (08:15)
[2018-09-01] MEDS ORDERED: PANTOPRAZOLE 40 MG (PROTONIX) TAB PO SCH (09:00)
[2018-09-01] MEDS ORDERED: AMIODARONE 200 MG (CORDARONE) TAB PO SCH (09:00)
[2018-09-01] MEDS ORDERED: APIXABAN 2.5 MG (ELIQUIS) TABLET PO SCH ×2 (09:00→21:00)
[2018-09-01] MEDS ORDERED: DILTIAZEM 120 MG (CARDIZEM CD) CAP PO SCH (09:00)
[2018-09-01] MEDS ORDERED: DILT120C53 PO (09:12)
[2018-09-01] MEDS ORDERED: DOCU-143 PO (09:12)
[2018-09-01] MEDS ORDERED: PANT40TA3 PO (09:12)
[2018-09-01] MEDS ORDERED: BENZ-36 PO (09:12)
[2018-09-01] MEDS ORDERED: POTA-51 PO (09:12)
[2018-09-01 11:44] VITALS: BP 126/64
--- NOTE | 2018-09-01 11:44 | History & Physical-Hospitalist ---
History of Present Illness HPI/Chief Complaint This is an 83-year-old white female who is medically complicated by being a long -term dialysis patient. She has previously been in [place] for respiratory arrest and renal failure. Currently the patient had been doing fairly well but was continuing was beginning to have pain in her right lower leg greater than her left. She's been having increased disability and inability to get around at home. She lives independently and does her own cooking and cleaning and laundry. She goes to dialysis 3 times a week and has for the last 3 years. The patient at the time my interview is very hard of hearing and much of the history is obtained from her daughter. The patient complains primarily of the right lower leg. She has had several falls secondary to the inability to bear weight because of the pain. CT head and neck done at the time of admission were unremarkable. She is on AHLQUIST for intermittent atrial fibrillation. Source: patient, family Exam Limitations: clinical condition Date Seen 09/01/18 Time Seen by a Provider: 11:00 Attending Physician Glenda De La Fuente MD PCP Nikki Horner MD Referring Physician Date of Admission Aug 31, 2018 at 23:40 Home Medications & Allergies Home Medications Reviewed patient Home Medication Reconciliation performed by pharmacy medication reconciliations data collection technician and/or nursing. Patients Allergies have been reviewed. Allergies Allergies Coded Allergies cephalexin (Verified Allergy, Unknown, 03/21/16) levofloxacin (Verified Adverse Reaction, Unknown, 08/31/18) TENDONOPATHY Past Yokbemq-Nobbbw-Rdiiqg Hx Past Med/Social Hx: Reviewed Nursing Past Med/Soc Hx Patient Social History Marrital Status: Employed/Student: retired Alcohol Use: Denies Use Recreational Drug Use: No Smoking Status: Former Smoker Former Smoker, Quit: Sep 04, 1978 Type Used: Cigarettes 2nd Hand Smoke Exposure: Yes Physical Abuse Screen: No Sexual Abuse: No Recent Foreign Travel: No Contact w/other who traveled: No Recent Hopitalizations: Yes Recent Infectious Disease Expo: No Immunizations Up To Date Date of Pneumonia Vaccine: Mar 21, 2016 Date of Influenza Vaccine: Jun 18, 2018 Seasonal Allergies Seasonal Allergies: Yes Past Medical History Surgeries: Dialysis, Eye Surgery, Gallbladder, Neurological, Vascular Surgery Cardiac: Aneurysm, Atrial Fibrillation, Chronic Edema/Swelling, High Cholesterol, Hypertension : No Menopausal Genitourinary: Renal Failure, Dialysis Gastrointestinal: Gastroesophageal Reflux Musculoskeletal: Arthritis, Gout Endocrine: Hypothyroidsim HEENT: Cataract Hearing Impairment: Hard of Hearing, Bilateral Hearing Aide Cancer: Skin Did You Recieve Any Treatments: Yes What Type of Treatment Did You: Surgical Intervention History of Blood Disorders: Yes (CHRONIC ANEMIA) Family History Patient reports no known family medical history. Review of Systems Constitutional: weakness EENTM: hearing loss Respiratory: short of breath Cardiovascular: no symptoms reported Gastrointestinal: constipation Genitourinary: no symptoms reported Musculoskeletal: joint swelling (Left knee pain), muscle pain (Right calf) Skin: no symptoms reported Psychiatric/Neurological: No Symptoms Reported Physical Exam Physical Exam Vital Signs Vital Signs - First Documented 08/31/18 09/01/18 09/01/18 21:55 00:24 00:36 Temp 96.9 Pulse 62 Resp 19 B/P (MAP) 117/78 (91) Pulse Ox 95 O2 Delivery Room Air Capillary Refill : Less Than 3 Seconds Height, Weight, BMI Height: 5'5.00" Weight: 145lbs. 0.0oz. 65.025672dm; 24.1 BMI Method:Stated General Appearance: Chronically ill HEENT: Other (Is edentulous) Neck: Limited Range of Motion Respiratory: Chest Non Tender, Lungs Clear, Normal Breath Sounds, No Accessory Muscle Use, No Respiratory Distress Cardiovascular: No JVD, Systolic Murmur, Irregularly Irregular Gastrointestinal: Normal Bowel Sounds, Non Tender, Soft Back: Normal Inspection Extremity: Pedal Edema, Other (Right calf is bigger than the left calf very painful to pressure and it is indurated and feels hard intense.) Neurologic/Psychiatric: Alert, Oriented x3, Normal Mood/Affect Skin: Warm/Dry, Ecchymosis (Multiple ecchymosis on legs and arms.) Lymphatic: No Adenopathy Results Results/Procedures Labs Patient resulted labs reviewed. Assessment/Plan Admission Diagnosis 1. Multiple falls secondary to right leg pain. Exam is most consistent with having a hematoma in the calf muscle. We'll obtain a sonogram. 2. End-stage renal failure on dialysis 3. Weakness and inability to ambulate as the patient lives at home alone and has been previously very functional will obtain physical therapy consult after the sonogram and rehabilitation evaluation. 4. Chronic constipation 5. History of atrial fibrillation on Eliquist, and amiodarone 6. Osteoarthritis which also inhibits patient's ability to get around Admission Status: Observation Clinical Quality Measures DVT/VTE Risk/Contraindication: Risk Factor Score Per Nursin RFS Level Per Nursing on Admit: 4+=Very High GLENDA DE LA FUENTE MD Sep 01, 2018 11:44
[2018-09-01] MEDS ORDERED: HYDROcodone/APAP 5 MG/325 MG (LORTAB) TAB PO PRN (11:45)
[2018-09-01] MEDS ORDERED: BENZONATATE 100 MG PO PRN (11:45)
[2018-09-01] MEDS ORDERED: BENZONATATE 100 MG (TESSALON) CAPSULE PO PRN (11:45)
--- NOTE | 2018-09-01 12:19 | Physical Therapy Evaluation ---
PT Evaluation-General Medical Diagnosis Admission Date Aug 31, 2018 at 23:40 Medical Diagnosis: SYNCOPAL EPISODE,R LEG PAIN Onset Date: Aug 31, 2018 Therapy Diagnosis Therapy Diagnosis: impaired mobility, strength, endurance Height/Weight Height (Feet): 5 Height (Inches): 5.00 Weight (Pounds): 145 Weight (Ounces): 0.0 Precautions Precautions/Isolations: Fall Prevention, Standard Precautions Weight Bear Status Right Lower Extremity: Right Weight Bearing/Tolerated Left Lower Extremity: Left Weight Bearing/Tolerated Referral Physician: Glenda Fisher MD Reason for Referral: Evaluation/Treatment Medical History Pertinent Medical History: HTN Additional Medical History Past Medical History Surgeries: Dialysis, Eye Surgery, Gallbladder, Neurological, Vascular Surgery Cardiac: Aneurysm, Atrial Fibrillation, Chronic Edema/Swelling, High Cholesterol, Hypertension : No Menopausal Genitourinary: Renal Failure, Dialysis Gastrointestinal: Gastroesophageal Reflux Musculoskeletal: Arthritis, Gout Endocrine: Hypothyroidsim HEENT: Cataract Hearing Impairment: Hard of Hearing, Bilateral Hearing Aide Cancer: Skin Did You Recieve Any Treatments: Yes What Type of Treatment Did You: Surgical Intervention History of Blood Disorders: Yes (CHRONIC ANEMIA) Reviewed History: Yes Social History Home: Single Level Current Living Status: Alone Entry Into Home: Stairs Without Railing PT Steps Into Home: 1 Prior/Core FIM Prior Level of Function Therapy Code Descriptions/Definitions Functional [place] Measure: 0=Not Assessed/NA 4=Minimal Assistance 1=Total Assistance 5=Supervision or Setup 2=Maximal Assistance 6=Modified [place] 3=Moderate Assistance 7=Complete [place] Therapy Quality Codes: 6 Independent with activity with or without an assistive device 5 Patient requires set up or clean up by helper. Patient completes activity by themselves 4 Supervision or touching assist (CGA). Street provide cues , steadying assist 3 The helper provides less than half the effort to complete the activity 2 The helper provides more than half the effort to complete the activity 1 Dependent. The helper does all the effort to complete an activity 7 Patient refused to complete or attempt activity 9 The patient did not perform the activity before the current illness or injury 88 Not attempted due to Medical conditions or safety concerns Functional Abilities and Goals: Independent: Patient completed the activities by him/herself, with or without an assistive device, with no assistance from a helper. Needed Some Help: Patient needed partial assistance from another person to complete activities. Dependent: A helper completed the activities for the patient. Unknown: Not Applicable: Bed Mobility: 6 Transfers (B,C,W/C) (FIM): 6 Gait: 6 Stairs: 6 Indoor Mobility (Ambulation): Independent Stairs: Independent Patient was using a rolling walker previously. PT Evaluation-Current Subjective Patient in recliner pre tx, agrees to PT, states she has some pain in her legs, more specifically her calves but is unable to rate pain. Pt/Family Goals to be independent at home Objective Patient Orientation: Person, Confused, Place, Situation Patient seems oriented to person, place, situation but she also seems confused about details and is extremely hard of hearing. ROM/Strength ROM Lower Extremities limited in knees due to arthritis Strength Lower Extremities 3+/5 gross bilateral lower extremities, limited testing due to pain in legs Neuromuscular (Tone, Coordination, Reflexes) NT Sensory Vision: Functional Hearing: Impaired Sensation Right Lower Extremit: Intact Sensation Left Lower Extremity: Intact Transfers Therapy Code Descriptions/Definitions Functional [place] Measure: 0=Not Assessed/NA 4=Minimal Assistance 1=Total Assistance 5=Supervision or Setup 2=Maximal Assistance 6=Modified [place] 3=Moderate Assistance 7=Complete [place] Transfers (B, C, W/C) (FIM): 4 Scootin Rollin Supine to/from Sit: 5 Sit to/from Stand: 4 bed t/f WC(FIM only if WC use): 4 Patient needs min assist for sit to stand, CGA for transfers Gait Mode of Locomotion: Walk Anticipated Mode of Locomotion: Walk Gait (FIM): 1 Distance: 20' Gait Level of Assist: 4 Gait Persons Needed: 1 Gait Assistive Device: FWW Comments/Gait Description Patient ambulated 20' with CGA, steady ambulation, no LOB, small steps, slow ambulation. Balance Sitting Static: Normal Sitting Dynamic: Normal Standing Static: Good Standing Dynamic: Good Treatment supine exercises x20 (AP, heel slides) Assessment/Needs Patient has impaired mobility, strength, endurance. She has a lump and bruising in her right medial calf. Rehab Potential: Fair PT Short Term Goals Short Term Goals Time Frame: Sep 08, 2018 Transfers (B,C,W/C) (FIM): 5 Gait (FIM): 2 Gait Distance Comment: 50' Gait Level of Assist: 5 Gait Assistive Device: FWW PT Plan Problem List Problem List: Activity Tolerance, Functional Strength, Safety, Balance, Gait, Transfer, Bed Mobility, ROM Treatment/Plan Treatment Plan: Continue Plan of Care Treatment Plan: Bed Mobility, Education, Functional Activity Zakiya, Functional Strength, Gait, Safety, Therapeutic Exercise, Transfers Treatment Duration: Sep 08, 2018 Frequency: 6 times per week Estimated Hrs Per Day: .25 hour per day (15-30') Patient and/or Family Agrees t: Yes Safety Risks/Education Patient Education: Gait Training, Transfer Techniques, Correct Positioning, Safety Issues Teaching Recipient: Patient Teaching Methods: Demonstration, Discussion Response to Teaching: Reinforcement Needed Discharge Recommendations Plan Patient will perform bed mobility and transfer training, balance and endurance training, functional strengthening, stair training, gait training, and education , to improve functional mobility and independence at home. Therapy D/C Recommendations: Acute Rehab, Home w/ Family Support, Long-Term (TCU/NH) Time/GCodes Time In: 1158 Time Out: 1215 Total Billed Treatment Time: 17 Total Billed Treatment 1 visit EVM 17' ANGELITO LALA PT Sep 01, 2018 12:19
[2018-09-01 16:35] VITALS: BP 115/58
[2018-09-01 20:25] VITALS: BP 138/62
[2018-09-01] MEDS: guaiFENesin (MUCINEX) 600 MG TAB PO SCH (20:25)
[2018-09-01] MEDS: APIXABAN 2.5 MG (ELIQUIS) TABLET PO SCH (20:25)
[2018-09-01] MEDS: DOCUSATE SODIUM 100 MG (COLACE) CAP PO SCH (20:26)
[2018-09-01] MEDS ORDERED: DOCUSATE SODIUM 100 MG (COLACE) CAP PO SCH (21:00)
[2018-09-02] VITALS: BP 136/61
[2018-09-02 04:00] VITALS: BP 132/66
[2018-09-02] MEDS: LEVOTHYROXINE 25 MCG (LEVOTHROID) TAB PO SCH (06:21)
[2018-09-02] MEDS: PANTOPRAZOLE 40 MG (PROTONIX) TAB PO SCH (06:22)
[2018-09-02] MEDS ORDERED: KCL 20 MEQ TAB (K-DUR) PO SCH (07:00)
[2018-09-02 08:00] VITALS: BP 109/55
[2018-09-02] MEDS: AMIODARONE 200 MG (CORDARONE) TAB PO SCH (08:13)
[2018-09-02] MEDS: DOCUSATE SODIUM 100 MG (COLACE) CAP PO SCH ×2 (08:14→20:46)
[2018-09-02] MEDS: APIXABAN 2.5 MG (ELIQUIS) TABLET PO SCH ×2 (08:14→20:45)
[2018-09-02] MEDS: BENZONATATE 100 MG (TESSALON) CAPSULE PO PRN ×2 (08:16→20:47)
[2018-09-02] MEDS: guaiFENesin (MUCINEX) 600 MG TAB PO SCH ×2 (08:18→20:46)
[2018-09-02] MEDS ORDERED: NON-FORMULARY MEDICATION 1 EA EA (Diltiazem HCl (Cartia Xt) 120 MG) PO SCH (09:00)
[2018-09-02] MEDS ORDERED: FUROSEMIDE 40 MG (LASIX) TAB PO SCH (09:00)
[2018-09-02] MEDS ORDERED: AMIODARONE 200 MG (CORDARONE) TAB PO SCH (09:00)
[2018-09-02] MEDS ORDERED: PANTOPRAZOLE 40 MG (PROTONIX) TAB PO SCH (09:00)
[2018-09-02] MEDS ORDERED: NON-FORMULARY MEDICATION 1 EA EA (Potassium Chloride 20 MEQ) PO SCH (09:00)
[2018-09-02] MEDS: DILTIAZEM 120 MG (CARDIZEM CD) CAP PO SCH (10:44)
[2018-09-02 12:00] VITALS: BP 135/67
[2018-09-02] MEDS ORDERED: BISACODYL 10 MG SUPP (DULCOLAX) PR PRN (12:30)
--- NOTE | 2018-09-02 12:33 | Progress Note-Hospitalist ---
Subjective HPI/CC On Admission Date Seen by Provider: Sep 02, 2018 Time Seen by Provider: 11:30 This is an 83-year-old white female who is medically complicated by being a long -term dialysis patient. She has previously been in [place] for respiratory arrest and renal failure. Currently the patient had been doing fairly well but was continuing was beginning to have pain in her right lower leg greater than her left. She's been having increased disability and inability to get around at home. She lives independently and does her own cooking and cleaning and laundry. She goes to dialysis 3 times a week and has for the last 3 years. The patient at the time my interview is very hard of hearing and much of the history is obtained from her daughter. The patient complains primarily of the right lower leg. She has had several falls secondary to the inability to bear weight because of the pain. CT head and neck done at the time of admission were unremarkable. She is on AHLQUIST for intermittent atrial fibrillation. Subjective/Events-last exam patient continues to have right leg pain and is now developing a large area of ecchymosis along the calf. History and exam both fit with probable spontaneousbleeding into the right gastroc muscle with subsequent pain. No evidence of compartment syndrome. Family complains mostly of her coughing since she isn't getting 1200 of guaifenesin twice a day and that she hasn't had a bowel movement since early last week. To be able to get to dialysis tomorrow she'll have to be transferred to rehabilitation or discharged first thing in the morning and transportation has to be arranged.we are unable to obtain any blood work today and have no IV access. Review of Systems Gastrointestinal: Constipation Musculoskeletal: leg pain Neurological: Weakness Objective Exam Vital Signs Vital Signs Date Time Temp Pulse Resp B/P (MAP) Pulse Ox O2 Delivery O2 Flow Rate FiO2 09/02/18 15:59 97.9 82 18 110/53 (72) 93 Room Air Capillary Refill : NONELess Than 3 Seconds General Appearance: Chronically ill HEENT: Normal ENT Inspection Neck: Normal Inspection, Supple Respiratory: Lungs Clear, Normal Breath Sounds, No Accessory Muscle Use, No Respiratory Distress Cardiovascular: No Gallop, Systolic Murmur, Irregularly Irregular Gastrointestinal: Normal Bowel Sounds, No Organomegaly, Non Tender, Soft Rectal: Deferred Back: Normal Inspection Extremity: Swelling, Other (ecchymotic) Neurologic/Psychiatric: Alert, Oriented x3, Normal Mood/Affect Skin: Ecchymosis, Pallor Results/Procedures Lab Patient resulted labs reviewed. Assessment/Plan Assessment and Plan Assess & Plan/Chief Complaint 1. Multiple falls secondary to right leg pain. Exam is most consistent with having a hematoma in the calf muscle. We'll obtain a sonogram tomorrow 2. End-stage renal failure on dialysis-her appointment is at 10 o'clock in the morning 3. Weakness and inability to ambulate as the patient lives at home alone and has been previously very functional will obtain physical therapy, I feel that the patient qualifies for rehabilitation evaluation. 4. Chronic constipation-Dulcolax suppository 5. History of atrial fibrillation on Eliquist, and amiodarone-holding Cardizem secondary to decreased blood pressure 6. Osteoarthritis which also inhibits patient's ability to get around 7. cough increase guaifenesin back to 1200 twice a day Admission Status: Observation Clinical Quality Measures DVT/VTE Risk/Contraindication: Risk Factor Score Per Nursin RFS Level Per Nursing on Admit: 4+=Very High JAEL DE LA FUENTE MD Sep 02, 2018 12:33
[2018-09-02 15:59] VITALS: BP 110/53
[2018-09-02 20:00] VITALS: BP 130/59
[2018-09-03] VITALS: BP 141/65
[2018-09-03 04:00] VITALS: BP 142/64
[2018-09-03] MEDS: LEVOTHYROXINE 25 MCG (LEVOTHROID) TAB PO SCH (06:18)
[2018-09-03] MEDS: PANTOPRAZOLE 40 MG (PROTONIX) TAB PO SCH (06:18)
[2018-09-03 08:00] VITALS: BP 139/64
--- NOTE | 2018-09-03 08:19 | Discharge Summary-Hospitalist ---
Diagnosis/Chief Complaint Date of Admission Aug 31, 2018 at 23:40 Date of Discharge Discharge Date: Sep 03, 2018 Admission Diagnosis 1. Multiple falls secondary to right leg pain- doppler negative 2. End-stage renal failure on dialysis 3. Weakness and inability to ambulate as the patient lives at home alone and has been previously very functional will obtain physical therapy consult after the sonogram and rehabilitation evaluation. 4. Chronic constipation 5. History of atrial fibrillation on Eliquist, and amiodarone 6. Osteoarthritis which also inhibits patient's ability to get around Discharge Summary Discharge Physical Exam Allergies: Coded Allergies: cephalexin (Verified Allergy, Unknown, 03/21/16) levofloxacin (Verified Adverse Reaction, Unknown, 08/31/18) TENDONOPATHY Vitals & I&Os Vital Signs Date Time Temp Pulse Resp B/P (MAP) Pulse Ox O2 Delivery O2 Flow Rate FiO2 09/03/18 09:45 87 16 139/64 95 Room Air 09/03/18 08:00 98.6 09/03/18 04:00 General Appearance: No Apparent Distress, Chronically ill Cardiovascular: Regular Rate, Rhythm, No Murmur Gastrointestinal: Normal Bowel Sounds, Soft Extremity: Other (right leg swollen and bruised) Hospital Course Pt was admitted due to debility and inability to care for herself at home. She was admitted to [facility] on 08/29 to [facility] for dialysis for fluid overload. She returned to the ER here twice on 08/31 due to falls. Sh ewas admitted for observation and IRU evaluation. Doppler oi fright lower extremity was done to evaluate for DVT causing leg pain which was negative. She was discharged from the hospital to outpatient dialysis with plan to return to IRU from direct admission there following her session today. Labs (last 24 hrs) Patient resulted labs reviewed. Discussion & Recommendations Discharge Planning: >30 minutes discharge planning Discharge Home Medications: Active Scripts Active Cartia Xt (Diltiazem HCl) 120 Mg Cap.er.24h 120 Mg PO DAILY 30 Days Pantoprazole Sodium 40 Mg Tablet.dr 40 Mg PO DAILY 30 Days Potassium Chloride 20 Meq Tablet.er 20 Meq PO DAILY PATIENT TAKES THESE ON NON-DIALYSIS DAYS Colace (Docusate Sodium) 100 Mg Capsule 100 Mg PO BID Benzonatate 100 Mg Capsule 100 Mg PO TID PRN Hydrocodone/Acetaminophen 5/325mg Tablet (Acetaminophen/Hydrocodone Bitart) 1 Tab Tab 0.5-1 Each PO Q6H PRN MDD 10 14 Days Reported Eliquis (Apixaban) 2.5 Mg Tablet 2.5 Mg PO BID Amiodarone HCl 200 Mg Tablet 200 Mg PO Guaifenesin 1,200 Mg Tab.er.12h 1,200 Mg PO Furosemide 40 Mg Tablet 40 Mg PO DAILY TAKES ON NON-DIALYSIS DAYS Levothyroxine Sodium 25 Mcg Tablet 37.5 Mcg PO DAILY Instructions to patient/family Please see electronic discharge instructions given to patient. Clinical Quality Measures DVT/VTE Risk/Contraindication: Risk Factor Score Per Nursin RFS Level Per Nursing on Admit: 4+=Very High SHAHID GUTIERREZ MD Sep 03, 2018 08:19
[2018-09-03] MEDS: DILTIAZEM 120 MG (CARDIZEM CD) CAP PO SCH (08:51)
[2018-09-03] MEDS: DOCUSATE SODIUM 100 MG (COLACE) CAP PO SCH (08:51)
[2018-09-03] MEDS: APIXABAN 2.5 MG (ELIQUIS) TABLET PO SCH (08:52)
[2018-09-03] MEDS: AMIODARONE 200 MG (CORDARONE) TAB PO SCH (08:53)
[2018-09-03] MEDS: guaiFENesin (MUCINEX) 600 MG TAB PO SCH (08:55)
--- NOTE | 2018-09-03 09:21 | Discharge Summary-Hospitalist ---
Diagnosis/Chief Complaint Date of Admission Aug 31, 2018 at 23:40 Date of Discharge Discharge Date: Sep 03, 2018 Admission Diagnosis 1. Multiple falls secondary to right leg pain. Exam is most consistent with having a hematoma in the calf muscle. We'll obtain a sonogram. 2. End-stage renal failure on dialysis 3. Weakness and inability to ambulate as the patient lives at home alone and has been previously very functional will obtain physical therapy consult after the sonogram and rehabilitation evaluation. 4. Chronic constipation 5. History of atrial fibrillation on Eliquist, and amiodarone 6. Osteoarthritis which also inhibits patient's ability to get around Discharge Summary Discharge Physical Exam Allergies: Coded Allergies: cephalexin (Verified Allergy, Unknown, 03/21/16) levofloxacin (Verified Adverse Reaction, Unknown, 08/31/18) TENDONOPATHY Vitals & I&Os Vital Signs Date Time Temp Pulse Resp B/P (MAP) Pulse Ox O2 Delivery O2 Flow Rate FiO2 09/03/18 04:00 98.8 73 16 142/64 (90) 96 Room Air Hospital Course Labs (last 24 hrs) Patient resulted labs reviewed. Discharge Home Medications: Active Scripts Active Cartia Xt (Diltiazem HCl) 120 Mg Cap.er.24h 120 Mg PO DAILY 30 Days Pantoprazole Sodium 40 Mg Tablet.dr 40 Mg PO DAILY 30 Days Potassium Chloride 20 Meq Tablet.er 20 Meq PO DAILY PATIENT TAKES THESE ON NON-DIALYSIS DAYS Colace (Docusate Sodium) 100 Mg Capsule 100 Mg PO BID Benzonatate 100 Mg Capsule 100 Mg PO TID PRN Hydrocodone/Acetaminophen 5/325mg Tablet (Acetaminophen/Hydrocodone Bitart) 1 Tab Tab 0.5-1 Each PO Q6H PRN MDD 10 14 Days Reported Eliquis (Apixaban) 2.5 Mg Tablet 2.5 Mg PO BID Amiodarone HCl 200 Mg Tablet 200 Mg PO Guaifenesin 1,200 Mg Tab.er.12h 1,200 Mg PO Furosemide 40 Mg Tablet 40 Mg PO DAILY TAKES ON NON-DIALYSIS DAYS Levothyroxine Sodium 25 Mcg Tablet 37.5 Mcg PO DAILY Instructions to patient/family Please see electronic discharge instructions given to patient. Clinical Quality Measures DVT/VTE Risk/Contraindication: Risk Factor Score Per Nursin RFS Level Per Nursing on Admit: 4+=Very High SHAHID GUTIERREZ MD Sep 03, 2018 09:20
--- NOTE | 2018-09-03 09:30 | Diagnostic Imaging Report ---
PROCEDURE: US right lower extremity venous. TECHNIQUE: Multiple real-time grayscale images were obtained over the right lower extremity in various projections. Additional spectral analysis and color Doppler duplex images were also obtained. INDICATION: Swelling and pain to the right lower extremity. There is no evidence of a right lower extremity DVT. Right lower extremity venous system shows normal compressibility with normal response to augmentation and Valsalva. There is fluid collection in the posterior upper calf measuring up to 16 cm in length x approximately 2.9 cm transverse. This could represent a large Conteh's cyst which partially ruptured. Intramuscular hematoma would be another consideration. IMPRESSION: 1. No evidence of right lower extremity DVT. 2. Right upper posterior calf fluid collection, as described. Dictated by: Dictated on workstation # [id number]
[2018-09-03 09:45] VITALS: BP 139/64
== END 2018-09-03 09:16 ==
LOC: EDUNIT# 21:53 → ER 21:55 → 4TH 23:40
PROVIDERS: ADMIT Internal Medicine; ATTEND Internal Medicine
DX: R54 Age-related physical debility (principal); S80.11XA Contusion of right lower leg, initial encounter; M79.604 Pain in right leg; M79.605 Pain in left leg; I48.91 Unspecified atrial fibrillation; E78.00 Pure hypercholesterolemia, unspecified; I12.9 Hypertensive chronic kidney disease with stage 1 through stage 4 chronic kidney disease, or unspecified chronic kidney disease; N18.6 End stage renal disease; K21.9 Gastro-esophageal reflux disease without esophagitis; E03.9 Hypothyroidism, unspecified; K59.09 Other constipation; M19.91 Primary osteoarthritis, unspecified site; R05 Cough; T48.4X5A Adverse effect of expectorants, initial encounter; Z99.2 Dependence on renal dialysis; Z87.891 Personal history of nicotine dependence; W19.XXXA Unspecified fall, initial encounter; Y92.019 Unspecified place in single-family (private) house as the place of occurrence of the external cause; Z79.01 Long term (current) use of anticoagulants; Z79.899 Other long term (current) drug therapy
CPT/HCPCS: 36415; 70450; 72125; 82550; G0378

== ENCOUNTER 2018-09-03 11:20 | Inpatient (IN) | payer MEDICARE ==
[~2018-09-03] VITALS: Ht 165.1 cm; Wt 68.3 kg
[~2018-09-03 11:20] MED LIST changes: +BENZ-36 PO; +DILT120C53 PO; +DOCU-143 PO; +POTA-51 PO
--- OUTSIDE RECORDS SUMMARY | 2018-09-03 15:10 | XMS REPORT | Continuity of Care Document ---
Demographics x Preferred Language Unknown Marital Status Unknown Anglican Affiliation Unknown Race Unknown Ethnic Group Unknown Author Author [facility] Organization [facility] Address Unknown Phone Unavailable Allergies Active Description Code Type Severity Reaction Onset Reported/Identified Relationship to Patient Clinical Status Yes cephalexin 2716 Drug Allergy N/ A N/A Confirmed or Verified Yes Keflex 6608 Drug Allergy N/A Hives Yes No known allergies [id number] Drug Allergy N/A N/A Confirmed but inactive Yes ALBUMIN, HUMAN ALBUMIN, HUMAN MODERATE Yes LEVOTHYROXINE LEVOTHYROXINE MODERATE Yes SULFA (SULFONAMIDE ANTIBIOTICS) SULFA (SULFONAMIDE A MODERATE Yes ALBUMIN, HUMAN MODERATE ITCHING Yes LEVOTHYROXINE MODERATE ITCHING Yes SULFA (SULFONAMIDE ANTIBIOTICS) MODERATE DERMATOLOGICAL - HIV Yes albumin colloid, human [id number] Drug Allergy Unknown N/A 03/21/2016 Yes cephalexin [id number] Drug Allergy Unknown N/A 03/21/2016 Yes levofloxacin [id number] Drug Allergy Unknown N/A 08/31/2018 Medications There is no data. Problems Date Dx Coded Attending Type Code Diagnosis Diagnosed By 08/17/1099 GRISEL GIBBS MD, Ot L89.312 PRESSURE ULCER OF RIGHT BUTTOCK, STAGE 2 08/17/1099 GRISEL GIBBS MD, Ot 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 03/29/2016 MARLO TRISTAN MD, Ot D63.8 ANEMIA IN OTHER CHRONIC DISEASES CLASSIF 03/29/2016 MARLO TRISTAN MD Ot E03.9 HYPOTHYROIDISM, UNSPECIFIED 03/29/2016 MARLO TRISTAN MD, Ot E83.51 HYPOCALCEMIA 03/29/2016 MARLO TRISTAN MD, Ot E88.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 03/29/2016 MARLO TRISTAN MD, Ot I12.0 HYP 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 03/29/2016 MARLO TRISTAN MD, Ot I48.91 UNSPECIFIED ATRIAL FIBRILLATION 03/29/2016 MARLO TRISTAN MD, Ot 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 03/29/2016 TRISTAN MD, MARLO E Ot Z66 DO NOT RESUSCITATE 03/29/2016 [...] E88.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 03/29/2016 KUN CANADA MARLO E Ot I12.0 HYP 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 03/29/2016 FERMIN TRISTAN MDIC E Ot I48.91 UNSPECIFIED ATRIAL FIBRILLATION 03/29/2016 FERMIN TRISTAN MDIC E Ot 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 03/29/2016 MARLO TRISTAN MD E Ot Z66 DO NOT RESUSCITATE 03/29/2016 MARLO TRISTAN MD E Ot Z87.891 PERSONAL HISTORY OF NICOTINE DEPENDENCE 03/29/2016 MARLO TRISTAN MD E Ot Z99.2 DEPENDENCE ON RENAL DIALYSIS 03/31/2016 MARLO TRISTAN MD E Ot D63.8 ANEMIA IN OTHER CHRONIC DISEASES CLASSIF 03/31/2016 MARLO TRISTAN MD E Ot E03.9 HYPOTHYROIDISM, UNSPECIFIED 03/31/2016 FERMIN TRISTAN MDIC E Ot E83.51 HYPOCALCEMIA 03/31/2016 MARLO TRISTAN MD E Ot E88.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 03/31/2016 MARLO TRISTAN MD E Ot I12.0 HYP 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 03/31/2016 MARLO TRISTAN MD E Ot I48.91 UNSPECIFIED ATRIAL FIBRILLATION 03/31/2016 FERMIN TRISTAN MDIC E Ot 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 03/31/2016 MARLO TRISTAN MD E Ot Z66 DO NOT RESUSCITATE 03/31/2016 MARLO TRISTAN MD E Ot Z87.891 PERSONAL HISTORY OF NICOTINE DEPENDENCE 03/31/2016 MARLO TRISTAN MD E Ot Z99.2 DEPENDENCE ON RENAL DIALYSIS 04/03/2016 MARLO TRISTAN MD E Ot D63.8 ANEMIA IN OTHER CHRONIC DISEASES CLASSIF 04/03/2016 MARLO TRISTAN MD E Ot E03.9 HYPOTHYROIDISM, UNSPECIFIED 04/03/2016 FERMIN TRISTAN MDIC E Ot E83.51 HYPOCALCEMIA 04/03/2016 MARLO TRISTAN [...] MD E Ot E03.9 HYPOTHYROIDISM, UNSPECIFIED 04/07/2016 KUN [place] MARLO E Ot E83.51 HYPOCALCEMIA 04/07/2016 FERMIN TRISTAN MDIC E Ot E88.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 04/07/2016 KUN [place] MARLO E Ot I12.0 HYP 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 04/07/2016 MARLO TRISTAN MD E Ot I48.91 UNSPECIFIED ATRIAL FIBRILLATION 04/07/2016 MARLO TRISTAN MD E Ot 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 04/07/2016 MARLO TRISTAN MD E Ot Z66 DO NOT RESUSCITATE 04/07/2016 MARLO TRISTAN MD E Ot Z87.891 PERSONAL HISTORY OF NICOTINE DEPENDENCE 04/07/2016 MARLO TRISTAN MD E Ot Z99.2 DEPENDENCE ON RENAL DIALYSIS 04/08/2016 MARLO TRISTAN MD E Ot D63.8 ANEMIA IN OTHER CHRONIC DISEASES CLASSIF 04/08/2016 MARLO TRISTAN MD E Ot E03.9 HYPOTHYROIDISM, UNSPECIFIED 04/08/2016 MARLO TRISTAN MD E Ot E83.51 HYPOCALCEMIA 04/08/2016 MARLO TRISTAN MD Ot E88.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 04/08/2016 MARLO TRISTAN MD E Ot I12.0 HYP 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 04/08/2016 MARLO TRISTAN MD E Ot I48.91 UNSPECIFIED ATRIAL FIBRILLATION 04/08/2016 MARLO TRISTAN MD E Ot L30.9 DERMATITIS, UNSPECIFIED 04/08/2016 MARLO TRISTAN MD E Ot L89.312 PRESSURE ULCER OF RIGHT BUTTOCK, STAGE 2 04/08/2016 MARLO TRISTAN MD E Ot L89.322 PRESSURE ULCER OF LEFT BUTTOCK, STAGE 2 04/08/2016 MARLO TRISTAN MD E Ot 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 04/08/2016 MARLO TRISTAN MD E Ot Z66 DO NOT RESUSCITATE 04/08/2016 MARLO TRISTAN MD E Ot Z87.891 PERSONAL HISTORY OF NICOTINE DEPENDENCE 04/08/2016 MARLO TRISTAN MD E Ot Z99.2 DEPENDENCE ON RENAL DIALYSIS 04/13/2016 SAI [place]NA[place], GRISEL Chung Ot L89.312 PRESSURE [...] PAIN IN RIGHT KNEE 04/19/2016 ELSA JERONIMO DO Ot M85.861 OTH DISRD OF BONE DENSITY AND STRUCTURE, 04/19/2016 KANDACE ELSA HOLLIS Ot M17.11 UNILATERAL PRIMARY OSTEOARTHRITIS, RIGHT 04/19/2016 KANDACE HOLLISELSA Ot M25.461 EFFUSION, RIGHT KNEE 04/19/2016 KANDACE ELSA HOLLIS Ot M25.561 PAIN IN RIGHT KNEE 04/19/2016 KANDACE ELSA HOLLIS Ot 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, 04/19/2016 SAI [place]NA[place], GRISEL Chung Ot L89.312 PRESSURE ULCER OF RIGHT BUTTOCK, STAGE 2 04/19/2016 SAI [place]NADA, GRISEL Chung Ot 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 07/20/2016 A 682.3 CELLULITIS AND ABSCESS OF UPPER ARM AND FOREARM 07/20/2016 A L03.113 CELLULITIS OF RIGHT UPPER LIMB 07/17/2017 VERENICE QUINTANA DO Ot E03.9 HYPOTHYROIDISM, UNSPECIFIED 07/17/2017 VERENICE QUINTANA DO Ot E78.00 PURE HYPERCHOLESTEROLEMIA, UNSPECIFIED 07/17/2017 VERENICE QUINTANA DO Ot E87.70 FLUID OVERLOAD, UNSPECIFIED 07/17/2017 VERENICE QUINTANA DO Ot I12.0 HYP 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 07/17/2017 VERENICE QUINTANA DO Ot K21.9 GASTRO-ESOPHAGEAL REFLUX DISEASE WITHOUT 07/17/2017 MARIYA QUINTANA DOA Jen Ot M10.9 GOUT, UNSPECIFIED 07/17/2017 VERENICE QUINTANA DO Ot 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 07/17/2017 VERENICE QUINTANA DO Ot R06.02 SHORTNESS OF BREATH 07/17/2017 VERENICE QUINTANA DO Ot Z85.828 PERSONAL HISTORY OF OTHER MALIGNANT NEOP 07/17/2017 VERENICE QUINTANA DO Ot Z87.891 PERSONAL HISTORY OF NICOTINE DEPENDENCE 07/17/2017 MARIANO DO, VERENICE K Ot Z96.22 MYRINGOTOMY TUBE(S) STATUS 07/17/2017 MARIANO [...] Ot 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 07/01/2018 COCO PENAIS Ot S22.070A WEDGE COMPRESSION FRACTURE OF T9-T10 [...] COCO PENAIS Ot E03.9 HYPOTHYROIDISM, UNSPECIFIED 07/03/2018 BECKY OG Ot E78.00 PURE HYPERCHOLESTEROLEMIA, UNSPECIFIED 07/03/2018 COCO PENAIS Ot I12.0 HYP 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 07/03/2018 COCO PENAIS Ot M06.9 RHEUMATOID ARTHRITIS, UNSPECIFIED 07/03/2018 COCO PENAIS Ot M54.6 PAIN IN THORACIC SPINE 07/03/2018 COCO PENAIS Ot 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 07/03/2018 COCO PENAIS Ot S22.070A WEDGE COMPRESSION FRACTURE OF T9-T10 JAVIER 07/03/2018 COCO PENAIS Ot X58.XXXA EXPOSURE TO OTHER SPECIFIED FACTORS, INI 07/03/2018 OG PENA Ot Z85.828 PERSONAL HISTORY OF OTHER MALIGNANT [...] DO, VERENICE K Ot E87.2 ACIDOSIS 08/31/2018 VERENICE QUINTANA DO Ot E87.70 FLUID OVERLOAD, UNSPECIFIED 08/31/2018 VERENICE QUINTANA DO Ot I12.0 HYP 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 08/31/2018 VERENICE QUINTANA DO Ot I48.91 UNSPECIFIED ATRIAL FIBRILLATION 08/31/2018 VERENICE QUINTANA DO Ot J40 BRONCHITIS, NOT SPECIFIED ACUTE OR CH 08/31/2018 VERENICE QUINTANA DO Ot K21.9 GASTRO-ESOPHAGEAL REFLUX DISEASE WITHOUT 08/31/2018 MARIANO VERENICE HOLLIS Ot M10.9 GOUT, UNSPECIFIED 08/31/2018 MARIANO VERENICE HOLLIS Ot 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 08/31/2018 VERENICE QUINTANA DO Ot R07.9 CHEST PAIN, UNSPECIFIED 08/31/2018 VERENICE QUINTANA DO Ot Z85.828 PERSONAL HISTORY OF OTHER MALIGNANT NEOP 08/31/2018 MARIANO HOLLIS VERENICE Li Ot Z88.1 ALLERGY STATUS TO OTHER ANTIBIOTIC AGENT 08/31/2018 MARIANO HOLLIS VERENICE Li Ot 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 08/31/2018 VERENICE QUINTANA DO Ot Z98.890 OTHER SPECIFIED POSTPROCEDURAL STATES 08/31/2018 VERENICE QUINTANA DO Ot Z99.2 DEPENDENCE ON RENAL DIALYSIS Procedures Code Description [place] [address] ROUTINE VENIPUNCTURE 02/14/[address] HEAD/BRAIN W/O DYE 02/14/2016 74040 CHEST X-RAY 02/14/2016 73860 COMPREHEN METABOLIC PANEL 02/14/2016 08101 URINALYSIS, AUTO W/SCOPE 02/14/2016 04269 ASSAY OF CK (CPK) 02/14/2016 22609 CREATINE, MB FRACTION 02/14/2016 31246 NATRIURETIC PEPTIDE 02/14/2016 42410 ASSAY OF TROPONIN, QUANT 02/14/2016 93991 COMPLETE CBC W/AUTO DIFF WBC 02/14/2016 51101 HYDRATE IV INFUSION, ADD-ON 02/14/2016 30217 THER/PROPH/DIAG INJ, IV PUSH 02/14/2016 89967 TX/PRO/DX INJ NEW DRUG ADDON 02/14/2016 12270 EMERGENCY DEPT VISIT 02/14/2016 J3490 DRUGS UNCLASSIFIED [...] NG/ML 0.0-0.4 PRO-BNP - 02/14/16 00:00 PRO-BNP 57039 PG/ML 0-900 CKMB - 02/14/16 00:00 CKMB [...] NG/ML 0.0-0.4 PRO-BNP - 02/14/16 00:00 PRO-BNP 45449 PG/ML 0-900 BMP - 02/14/16 00:00 BCR [...] FOR INFLUENZA A AND B ANTIGENS BY [facility] Complete blood count (CBC) with automated white [...] 5-8.5 Urine-Protein 2+ Negative Urine-RBC 20-40/HPF Urine-Specific [place] 1.015 1.000-1.030 Urine-WBC 10-20/HPF Urobilinogen 1.0 0.2-1.0 Urine Culture - 06/10/18 18:55 PRELIM CULTURE RESULTS <10,000 Gram Positive Mixed Victoria [id number] Skin Contaminant FINAL CULTURE RESULTS <10,000 Gram Positive Mixed Victoria [id number] Skin Contaminant [id number] Further Workup done MEDIA PLATED Setup at [...] culture - 08/29/18 04:45 Bacterial blood culture [facility] Influenza virus A and B antigen detection - 08/29/18 04:50 FLU RESULT NEGATIVE FOR INFLUENZA A AND B ANTIGENS BY [facility] Bacterial blood culture - 08/29/18 06:05 Bacterial blood culture [facility] Complete blood count (CBC) with automated white blood cell (WBC) differential - 08/31/18 19:02 Blood leukocytes automated count (number/volume) 7.0 10*3/uL 4.3-11.0 Blood erythrocytes automated count (number/volume) 3.04 10*6/uL 4.35-5.85 Venous blood hemoglobin measurement (mass/volume) 9.1 g/dL 11.5-16.0 Blood hematocrit (volume fraction) 28 % 35-52 Automated erythrocyte mean corpuscular volume 93 [foz_us] 80-99 Automated erythrocyte mean corpuscular hemoglobin (mass per erythrocyte) 30 pg 25-34 Automated erythrocyte mean corpuscular hemoglobin concentration measurement ( mass/volume) 32 g/dL 32-36 Automated erythrocyte distribution width ratio 16.3 % 10.0-14.5 Automated blood platelet count (count/volume) 116 10*3/uL 130-400 Automated blood platelet mean volume measurement 10.4 [foz_us] 7.4-10.4 Automated blood neutrophils/100 leukocytes 70 % 42-75 Automated blood lymphocytes/100 leukocytes 18 % 12-44 Blood monocytes/100 leukocytes 11 % 0-12 Automated blood eosinophils/100 leukocytes 1 % 0-10 Automated blood basophils/100 leukocytes 0 % 0-10 Blood neutrophils automated count (number/volume) 4.9 10*3 1.8-7.8 Blood lymphocytes automated count (number/volume) 1.3 10*3 1.0-4.0 Blood monocytes automated count (number/volume) 0.7 10*3 0.0-1.0 Automated eosinophil count 0.1 10*3/uL 0.0-0.3 Automated blood basophil count (count/volume) 0.0 10*3/uL 0.0-0.1 Comprehensive metabolic panel - 08/31/18 19:02 Serum or plasma sodium measurement (moles/volume) 135 mmol/L 135-145 Serum or plasma potassium measurement (moles/volume) 3.4 mmol/L 3.6-5.0 Serum or plasma chloride measurement (moles/volume) 93 mmol/L 98-107 Carbon dioxide 32 mmol/L 21-32 Serum or plasma anion gap determination (moles/volume) 10 mmol/L 5-14 Serum or plasma urea nitrogen measurement (mass/volume) 14 mg/dL 7-18 Serum or plasma creatinine measurement (mass/volume) 1.86 mg/dL 0.60-1.30 Serum or plasma urea nitrogen/creatinine mass ratio 8 NRG Serum or plasma creatinine measurement with calculation of estimated glomerular filtration rate 26 NRG Serum or plasma glucose measurement (mass/volume) 111 mg/dL 70-105 Serum or plasma calcium measurement (mass/volume) 7.8 mg/dL 8.5-10.1 Serum or plasma total bilirubin measurement (mass/volume) 0.6 mg/dL 0.1-1.0 Serum or plasma alkaline phosphatase measurement (enzymatic activity/volume) 82 U/L 40-136 Serum or plasma aspartate aminotransferase measurement (enzymatic activity/ volume) 36 U/L 5-34 Serum or plasma alanine aminotransferase measurement (enzymatic activity/volume ) 42 U/L 0-55 Serum or plasma protein measurement (mass/volume) 5.8 g/dL 6.4-8.2 Serum or plasma albumin measurement (mass/volume) 3.2 g/dL 3.2-4.5 CALCIUM CORRECTED 8.4 mg/dL 8.5-10.1 Magnesium - 08/31/18 19:02 Magnesium 1.7 mg/dL 1.8-2.4 Serum or plasma C reactive protein measurement (mass/volume) - 08/31/18 19:02 Serum or plasma C reactive protein measurement (mass/volume) 2.03 mg /dL 0.00-0.50 Serum or plasma creatine kinase measurement (enzymatic activity/volume) - 08/31 19:03 Serum or plasma creatine kinase measurement (enzymatic activity/volume) 71 U/L 29-168 Encounters ACCT No. Visit Date/Time Discharge Status Pt. Type Provider Facility Loc./Unit Complaint [id number] 02/15/2016 11:53:00 02/15/2016 11:53:00 DIS Outpatient HARVEY LEWIS W [facility] EMR [id number] 02/14/2016 12:03:00 02/15/2016 11:15:00 DIS Inpatient ED JAVIERISHMAEL W [facility] ICU [id number] 02/14/2016 09:15:00 02/14/2016 12:03:00 DIS Emergency MAKENZIE ARCHER [facility] EMR [id number] 01/29/2015 09:15:00 01/29/2015 11:55:00 DIS Inpatient GRISEL CHINO [facility] OPS [id number] 08/17/2015 00:00:00 Document Registration [id number] 06/10/2018 18:17:00 06/10/2018 19:55:00 DIS Outpatient Leyla Smith [facility] ER [id number] 08/22/2017 00:00:00 08/22/2017 23:59:00 DIS Outpatient BUSTER DICK [id number] 05/04/2017 09:20:00 05/04/2017 23:59:00 DIS Outpatient BUSTER DICK [id number] 02/02/2017 11:47:00 02/02/2017 23:59:00 DIS Outpatient BUSTER DICK [id number] 12/15/2016 19:03:00 12/15/2016 23:59:00 DIS Outpatient Leyla Smith [id number] 07/20/2016 19:27:00 Document Registration [id number] 08/31/2018 17:25:00 08/31/2018 20:14:00 DIS Emergency GURDEEP CANADA, GREGORIA Almanza [facility] ER ALTERED MENTAL STATUS [id number] 08/29/2018 04:31:00 08/29/2018 08:49:00 DIS Outpatient VERENICE QUINTANA DO [facility] ER CP [id number] 07/01/2018 10:57:00 07/01/2018 12:41:00 DIS Emergency OG PENA [facility] ER RUQ BACK PAIN [id number] 07/17/2017 06:25:00 07/17/2017 08:53:00 DIS Emergency VERENICE QUINTANA DO [facility] ER SOA [id number] 04/19/2016 07:57:00 04/19/2016 11:00:00 DIS Outpatient SAI CANADA, GRISEL Chung [facility] WOUNDCARE WOUNDS ON BUTTOCKS [id number] 04/17/2016 09:28:00 04/17/2016 11:39:00 DIS Emergency ELSA JERONIMO DO [facility] ER R KNEE PAIN [id number] 03/21/2016 15:30:00 04/08/2016 13:40:00 DIS Inpatient KUN CANADA, MARLO Guerrero [facility] IRF DEBILITY [id number] 08/31/2018 23:40:00 ACT Inpatient LEISA CANADA, JAEL Saxena [facility] 4TH PHYSICAL DEBILITY,LEG PAIN, HX OF ESRD
[2018-09-03 15:24] VITALS: BP 128/64
--- NOTE | 2018-09-03 15:37 | Physical Therapy Evaluation ---
PT Evaluation-General Medical Diagnosis Admission Date Sep 03, 2018 at 15:00 Medical Diagnosis: debility Onset Date: Sep 01, 2018 Therapy Diagnosis Therapy Diagnosis: weakness; abn gait Height/Weight Height (Feet): 5 Height (Inches): 5.00 Weight (Pounds): 150 Weight (Ounces): 9.0 Precautions Precautions/Isolations: Standard Precautions Weight Bear Status Right Lower Extremity: Right Full Weight Bearing Left Lower Extremity: Left Full Weight Bearing Referral Physician: Jesus Reason for Referral: Evaluation/Treatment Medical History Pertinent Medical History: Atrial Fib, GERD, HTN, Hypothroidism, Renal Insufficiency (dialysis 3x/wk) Additional Medical History high cholesterol Current History Admitted to [facility] with frequent falls and right leg pain. Transferred to ARU for skilled therapy services to increase independence and return home. Reviewed History: Yes Social History Home: Single Level Current Living Status: Alone (family lives nearby and checks frequently) Entry Into Home: Stairs With Railing PT Steps Into Home: 1 Prior/Core FIM Prior Level of Function Therapy Code Descriptions/Definitions Functional [place] Measure: 0=Not Assessed/NA 4=Minimal Assistance 1=Total Assistance 5=Supervision or Setup 2=Maximal Assistance 6=Modified [place] 3=Moderate Assistance 7=Complete [place] Therapy Quality Codes: 6 Independent with activity with or without an assistive device 5 Patient requires set up or clean up by helper. Patient completes activity by themselves 4 Supervision or touching assist (CGA). Gray provide cues , steadying assist 3 The helper provides less than half the effort to complete the activity 2 The helper provides more than half the effort to complete the activity 1 Dependent. The helper does all the effort to complete an activity 7 Patient refused to complete or attempt activity 9 The patient did not perform the activity before the current illness or injury 88 Not attempted due to Medical conditions or safety concerns Functional Abilities and Goals: Independent: Patient completed the activities by him/herself, with or without an assistive device, with no assistance from a helper. Needed Some Help: Patient needed partial assistance from another person to complete activities. Dependent: A helper completed the activities for the patient. Unknown: Not Applicable: Bed Mobility: 7 Transfers (B,C,W/C) (FIM): 7 Gait: 6 Stairs: 2 (1 step) Indoor Mobility (Ambulation): Independent Stairs: Needed Some Help Prior Devices Use: Walker pt lives at home alone; cares for herself without assist; dialysis 3 x/wk PT Evaluation-Current Subjective Pt reports she is feeling better. Reports she is walking better compared to yesterday. Pain Numeric Pain Scale: 0-No Pain Location: No Pain Reported Comment: Pt currently denying pain; but was having pain earlier. Pt/Family Goals Return home alone at a mod indep level. Objective Patient Orientation: Person, Place, Time, Situation Problem Solving: Fair ROM/Strength ROM Lower Extremities WFL B LE Strenght Lower Extremities strength is grossly 4-/5 throughout Integumentary/Posture Integumentary Refer to nursing notes. Bowel Incontinence: No Bladder Incontinence: Yes Posture thoracic kyphosis noted; shoulders are symmetrical Neuromuscular (Tone, Coordination, Reflexes) intact and functional Sensory Vision: Functional Hearing: Hearing Aid/Aides (very EEK) Hand Dominance: Right Sensation Right Lower Extremit: Intact Sensation Left Lower Extremity: Intact Transfers Therapy Code Descriptions/Definitions Functional [place] Measure: 0=Not Assessed/NA 4=Minimal Assistance 1=Total Assistance 5=Supervision or Setup 2=Maximal Assistance 6=Modified [place] 3=Moderate Assistance 7=Complete [place] Therapy Quality Codes: 6 Independent with activity with or without an assistive device 5 Patient requires set up or clean up by helper. Patient completes activity by themselves 4 Supervision or touching assist (CGA). Gray provide cues , steadying assist 3 The helper provides less than half the effort to complete the activity 2 The helper provides more than half the effort to complete the activity 1 Dependent. The helper does all the effort to complete an activity 7 Patient refused to complete or attempt activity 9 The patient did not perform the activity before the current illness or injury 88 Not attempted due to Medical conditions or safety concerns Transfers (B, C, W/C) (FIM): 3 Scootin Rollin Roll Left to Right (QC): 4 Supine to/from Sit: 4 Sit to/from Stand: 4 Sit to Lying (QC): 4 Lying to Sitting/Side of Bed(Q: 4 Sit to Stand (QC): 4 Chair/Uwg-bq-Ouped Xfer(QC): 4 Car Transfer (QC): 4 CGA for all functional transfers with skilled cues to sequence and for hand placement. Gait Does the Patient Walk?: Yes Mode of Locomotion: Walk Anticipated Mode of Locomotion: Walk Gait (FIM): 2 Distance (FIM): 5=101-08 ft Walk 10 feet (QC): 4 Walk 50 ft with 2 Turns(QC): 4 Walk 150 ft (QC): 88 Walking 10ft/uneven surface-QC: 4 Distance: 100 ft x 2 Gait Level of Assist: 4 (CGA for safety) Gait Persons Needed: 1 Gait Assistive Device: FWW Comments/Gait Description slow gait with decreased step length B and decreased foot clearance B. Wheelchair Training Does the Pt Use a Wheelchair?: No Stairs Stairs (FIM): 1 #of Steps: 1 Level of Assist: 4 (CGA for safety) 1 Step (curb) (QC): 4 4 Steps (QC): 88 Assistive Device: Walker 12 Steps (QC): 88 Balance Sitting Static: Good Sitting Dynamic: Good Standing Static: Fair Standing Dynamic: Fair Picking up an Object (QC): 88 (unsafe to attempt at this time. ) Treatment Co treat with OT to address functional transfers throughout her room and in the bathroom. OT addressing set up of bathroom with AD and transfer aides with assessemnt of height and self care use as PT addressed safety with transfers with correct sequencing and hand placement. In addition, addressed safety in the bathroom with use of FWW; pt changed clothing and OT addressed the dressing aspect as PT addressed the sit to stand transfers and seated balance activities as she transferred. Skill of 2 clinicians required as we were addressing self care and functional mobility at the same time. Assessment/Needs Pt presents with gross functional weakness and impaired functional safety with mobility and transfers. She has limited functional activity tolerance as well. She will benefit from skilled therapy intervention to address these deficits and progreess her to a mod indep level in which she can care for herself at home. Rehab Potential: Good PT Short Term Goals Short Term Goals Time Frame: Sep 10, 2018 Transfers (B,C,W/C) (FIM): 5 Gait (FIM): 5 PT Wet Process Head Miller Goals Snf Goals PT Wet Process Head Miller Goals Time Frame: Sep 20, 2018 Transfers (B,C,W/C) (FIM): 7 Sit to Lying (QC): 6 Lying-Sitting on Side/Bed(QC): 6 Sit to Stand (QC): 6 Roll Left to Right (QC): 6 Chair/Iqx-vo-Oleqz Xfer(QC): 6 Car Transfer (QC): 6 Does the Patient Walk: Yes Gait (FIM): 6 Gait distance (FIM): 3=150 ft Walk 10 feet (QC): 6 Walk 10ft-Uneven Surface(QC): 6 Walk 50ft with 2 Turns (QC): 6 Walk 150 ft (QC): 6 Gait Level of Assist: 6 Gait Assistive Device: FWW Does the Pt use WC or Scooter?: No Stairs (FIM): 5 (household) # of Steps: 4 1 Step (curb) (QC): 6 4 Steps (QC): 6 12 Steps (QC): 88 PT Plan Problem List Problem List: Activity Tolerance, Functional Strength, Safety, Balance, Gait, Transfer, Bed Mobility Treatment/Plan Treatment Plan: Continue Plan of Care Treatment Plan: Bed Mobility, Education, Functional Activity Zakiya, Functional Strength, Group Therapy, Gait, Safety, Therapeutic Exercise, Transfers Treatment Duration: Sep 20, 2018 Frequency: Modified Program (IRF) Estimated Hrs Per Day: 1.5 hours per day Patient and/or Family Agrees t: Yes Safety Risks/Education Patient Education: Transfer Techniques, Safety Issues Teaching Recipient: Patient Teaching Methods: Demonstration, Discussion Response to Teaching: Reinforcement Needed Time/GCodes Time In: 1500 Time Out: 1515 (1530 to 1610) Total Billed Treatment Time: 55 Total Billed Treatment visit EVM 15 FA 40 KIP YUAN PT Sep 03, 2018 15:37
[2018-09-03] MEDS ORDERED: HYDROcodone/APAP 5 MG/325 MG (LORTAB) TAB PO PRN (15:45)
--- NOTE | 2018-09-03 16:24 | Occupational Therapy Eval ---
OT Evaluation-General/PLF Medical Diagnosis Admission Date Sep 03, 2018 at 15:00 Medical Diagnosis: debility Onset Date: Aug 31, 2018 Therapy Diagnosis Therapy Diagnosis: decr self care, decr act chula, decr funct mob, weakness Height/Weight Height (Feet): 5 Height (Inches): 5.00 Weight (Pounds): 150 Weight (Ounces): 9.0 Precautions Precautions/Isolations: Standard Precautions Referral Physician: Jesus Referral Reason: Evaluation/Treatment Medical History Pertinent Medical History: Atrial Fib, Arthritis, GERD, HTN, Hypothroidism, OA , Renal Insufficiency (dialysis 3x/wk) Additional Medical History Dialysis 3x a week. Bronchitis. Cerebral aneurysm repair. Chronic edema. Cataract surgery. Chronic anemia. Gout. Current History Admitted to [facility] with frequent falls and right leg pain. Transferred to ARU for skilled therapy services to increase independence and return home. Reviewed History: Yes Social History Home: Single Level Current Living Status: Alone (family lives nearby and checks frequently) Entry Into Home: Stairs With Railing Steps Into Home: 1 ADL-Prior Level of Function Therapy Code Descriptions/Definitions Functional [place] Measure: 0=Not Assessed/NA 4=Minimal Assistance 1=Total Assistance 5=Supervision or Setup 2=Maximal Assistance 6=Modified [place] 3=Moderate Assistance 7=Complete [place] Therapy Quality Codes: 6 Independent with activity with or without an assistive device 5 Patient requires set up or clean up by helper. Patient completes activity by themselves 4 Supervision or touching assist (CGA). [place] provide cues , steadying assist 3 The helper provides less than half the effort to complete the activity 2 The helper provides more than half the effort to complete the activity 1 Dependent. The helper does all the effort to complete an activity 7 Patient refused to complete or attempt activity 9 The patient did not perform the activity before the current illness or injury 88 Not attempted due to Medical conditions or safety concerns Functional Abilities and Goals: Independent: Patient completed the activities by him/herself, with or without an assistive device, with no assistance from a helper. Needed Some Help: Patient needed partial assistance from another person to complete activities. Dependent: A helper completed the activities for the patient. Unknown: Not Applicable: ADL PLOF Comments Pt reported that she was previously able to manage her basic self care needs. She also cooks, cleans, does laundry, flips the mattress herself. Family does yard work. 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 She likes to dirk baby hats and baby blankets and go to flea markets with her daughter. She used a rolling walker and FWW at home. Self Care: Independent Functional Cognition: Independent DME/Equipment: Bath Chair, Shower, Shower Hose Party Host/Hostess, Toilet/Riser OT Current Status Subjective Pt seen in room, up in recliner, agreeable to OT. Pain reported o/10. Appearance Alert, cooperative Mental Status/Objective Patient Orientation: Person, Place, Time, Situation Attachments: Central Line Current Glasses/Contacts: Yes Hearing Aids: Yes (bilat) Dentures/Partials: Yes (uppers) Hand Dominance: Right Upper Extremity ROM Grossly WFL bilat Upper Extremity Sensation No problems, per patient report Upper Extremity Strength Grossly 4/5 bilat ADL-Treatment ADL-Current Co-treatment with PT due to significantly decreased activity tolerance (pt had just finished dialysis), with PT focusing on balance, mobility and LEs and OT focusing on ADLs and UEs. She toileted and had quite a bit of difficulty getting off the tall toilet, even with using grab bar. She has handles on her toilet at home. Bedside commode placed over toilet and she was able to get on/ off toilet with SBA, FWW. Stood at sink to groom, FWW. She changed clothing, with a little bit of trouble getting shirt off but able to put clean one on with setup. Pt educ mod technique for dressing. Able to doff and don plants with SBA, FWW with no LOB observed. Able to put slippers on herself. Pt left up in recliner, legs elevated on pillow, all needs met. Grooming (FIM): 5 (SBA, FWW at sink to wash hands) Upper Body Dressing (FIM): 4 (A little trouble getting shirt off but able to don clean one with setup) Upper Body Dressing (QC): 3 Lower Body Dressing (FIM): 5 (SBA to stand and take pants off/don clean ones, using FWW. Able to put slippers on herself (she has significant edema in LEs)) Lower Body Dressing (QC): 4 (SBA) On/Off Footwear (QC): 4 (SBA) Toileting (FIM): 3 (Mod assist to stand up from toilet to manage clothing. Managed hygiene with SBA. Tall toilet, grab bar, FWW) Toileting Hygiene (QC): 3 Toilet/Commode Transfer (FIM): 3 (Mod assist to get off tall toilet, using grab bar, FWW. Placed BSC over toilet and she was able to get on/off with SBA. ) Toilet Transfer (QC): 3 Education OT Patient Education: Instructions to caregiver (daughter), Modified ADL techniques, Purpose of tx/functional activities, Rehab process Teaching Recipient: Patient Teaching Methods: Demonstration, Discussion Response to Teaching: Verbalize Understanding, Return Demonstration, Reinforcement Needed OT Short Term Goals Short Term Goals Time Frame: Sep 10, 2018 Bathing(FIM): 5 Upper Body Dressing(FIM): 5 Toilet/Commode Transfer(FIM): 5 Additional Short Term Goals: 1-Demonstrate ADL Tasks, 2-Verbalize Understanding , 3-ImproveStrength/Zakiya 1=Demonstrate adherence to instructed precautions during ADL tasks. 2=Patient will verbalize/demonstrate understanding of assistive devices/ modifications for ADL. 3=Patient will improve strength/tolerance for activity to enable patient to perform ADL's. OT Digital Performance Analyst Goals Assisted Goals Time Frame: Sep 20, 2018 Eating (FIM): 6 Eating (QC): 6 Groomin Oral Hygiene (QC): 6 Bathing(FIM): 6 Shower/Bathe Self (QC): 6 Upper Body Dressing(FIM): 6 Upper Body Dressing (QC): 6 Lower Body Dressing(FIM): 6 Lower Body Dressing (QC): 6 On/Off Footwear (QC): 6 Toileting(FIM): 6 Toileting Hygiene (QC): 6 Toilet/Commode Transfer(FIM): 6 Toilet/Commode Transfer (QC): 6 Tub Transfer(FIM): 6 Shower Transfer(FIM): 6 Additional Goals: 1-Demonstrate ADL Tasks, 2-Verbalize Understanding, 3- ImproveStrength/Zakiya 1=Demonstrate adherence to instructed precautions during ADL tasks. 2=Patient will verbalize/demonstrate understanding of assistive devices/ modifications for ADL. 3=Patient will improve strength/tolerance for activity to enable patient to perform ADL's. OT Education/Plan Problem List/Assessment Assessment: Decreased Activ Tolerance, Decreased UE Strength, Dependent Transfers, Impaired Funct Balance, Impaired Self-Care Skills Pt would benefit from skilled OT to increase her independence in basic self care to allow her to safely return home Discharge Recommendations Plan/Recommendations: Continue POC Treatment Plan/Plan of Care Treatment,Training & Education: Yes Patient would benefit from OT for education, treatment and training to promote independence in ADL's, mobility, safety and/or upper extremity function for ADL' s. Plan of Care: ADL Retraining, Functional Mobility, Group Exercise/Act as Ind ( education, exercise, activity tolerance, functional activities, socialization), UE Funct Exercise/Act, UE Neuromus Re-Ed/Coord, OTHER (energy conservation education and practice) Treatment Duration: Sep 20, 2018 Frequency: Modified Program (IRF) Estimated Hrs Per Day: 1.5 hours per day Agreement: Yes Rehab Potential: Good Time/GCodes Start Time: 15:15 Stop Time: 16:10 Total Time Billed (hr/min): 55 Billed Treatment Time visit, OT evaluation moderate intensity 1515 to 1530, ADL 40 minutes 1530 to 1610 (co-tx with PT) MAJO CENTENO OT Sep 03, 2018 16:24
[2018-09-03 17:59] VITALS: BP 151/65
[2018-09-03] MEDS: guaiFENesin (MUCINEX) 600 MG TAB PO SCH (20:31)
[2018-09-03] MEDS: DOCUSATE SODIUM 100 MG (COLACE) CAP PO SCH (20:31)
[2018-09-03] MEDS: APIXABAN 2.5 MG (ELIQUIS) TABLET PO SCH (20:31)
--- NOTE | 2018-09-03 21:45 | PM&R Post Admission Assessment ---
Post Admission Physician Asses Date seen by provider: Sep 03, 2018 Time seen by provider: 17:00 The preadmission screen agrees with the post admission assessment that the patient is a good candidate for inpatient rehabilitation. The patient will have a comprehensive program of inpatient rehabilitation with a goal of maximizing level of functional independence prior to discharge home with HHC and family. The patient will have PT/OT ninety minutes per day, each discipline, five days a week for 2 weeks for gait, strengthening, conditioning, balance, ADLs, any patient/family/caregiver training as necessary. Speech therapy to do cognitive assessment and treat as indicated. Rehabilitation nursing to assist with bowel, bladder, skin, medication administration, pain management. Demurrage Worker to assist with discharge planning, community reentry. SCD's for DVT prophylaxis. She appears to be well motivated to participate in three hours of therapy a day. She should be able to tolerate three hours of therapy a day from a medical standpoint. She should benefit from the three hours of therapy a day. She has a reasonable discharge plan, reasonable discharge rehabilitation goals and a supportive family. She has various comorbidities that need to be closely monitored with medications and treatments adjusted on a daily basis as needed. These include: OA A FIB ESRD Barriers to discharge for this patient who had been independent prior to this are for her to be modified independent to supervision for ADLs and mobility skills prior to discharge home with family and HHC, so as to lessen the burden of the caregivers. Risks for this patient include: 1. Fall 2. Fracture 3. DVT 4. Pulmonary embolism 5. Worsening RT Leg swelling 6. Skin breakdown 7. Contractures 8. Poorly controlled pain 9. Urinary retention 10. UTI 11. Respiratory infection 12. Aspiration 13,recurrent A FIB Estimated Length of Stay: 14 days Prognosis: Rehab prognosis appears good for goal of discharge home with family and HHC modified independent to supervision for ADLs and mobility skills. Date Identified: Sep 03, 2018 Time Identified: 21:00 Action Plan to Resolve CSMI: Transfer meds reviewed General: Alert, Oriented X3, Cooperative, No Acute Distress HEENT: Atraumatic, PERRLA, EOMI, Mucous Memb Moist/[place] Neck: Supple, No JVD Lungs: Clear to Auscultation Heart: Regular Rate Abdomen: Normal Bowel Sounds, Soft, No Tenderness Extremities: Other (1 plus swelling RT leg) Skin: No Rashes Neuro: Strength at 5/5 X4 Ext (BLower limbs), Other (Strength 4/5 both upper limbs) MARLO TRISTAN MD Sep 03, 2018 21:45
--- NOTE | 2018-09-03 23:09 | HISTORY AND PHYSICAL ---
DATE OF SERVICE: 09/03/2018 ADMISSION HISTORY AND PHYSICAL CHIEF COMPLAINT: Difficulty with walking. HISTORY OF PRESENT ILLNESS: The patient is an 83-year-old female with history of multiple falls at home who was admitted through the ED on 08/31/2018, to hospitalist service due to multiple falls, right leg pain and swelling. The patient had a Doppler done with suggestion of a ruptured Conteh cyst versus small hematoma. No DVT was noted. The patient was referred to inpatient rehabilitation unit. She has been on dialysis for a few years three times a week and has had dialysis earlier today and then transferred to this unit. Currently, she requires assistance for ADLs and mobility skills. She had been living alone, but with family nearby that checks on her including her daughter. She had been modified independent with a walker prior to this. Currently, she is min assist for gait and transfers. The patient is a min assist for toileting, min assist for lower body dressing, standby assist and mod assist for upper body dressing. PAST MEDICAL HISTORY: Atrial fibrillation, falls, arthritis, GERD, hypertension, end-stage renal disease on dialysis three times a week, hypothyroidism, osteoarthritis, renal insufficiency. PAST SURGICAL HISTORY: Access for dialysis. ALLERGIES: KEFLEX, LEVAQUIN. FAMILY HISTORY: Noncontributory. SOCIAL HISTORY: Essentially as per above. PCP listed as Nikki Horner. She lives in [place], [place]. REVIEW OF SYSTEMS: A 10-point review of systems significant for falls, swelling right leg. MEDICATIONS: Cardizem 120 mg p.o. daily, furosemide 40 mg Monday, Monday, , Monday, Protonix 40 mg p.o. daily, amiodarone 200 mg p.o. daily, K-Dur 20 mEq p.o. Monday, Monday, , and Synthroid 37.5 mcg p.o. daily, Eliquis 2.5 mg p.o. b.i.d., Colace 100 mg p.o. b.i.d., Mucinex 1200 mg p.o. b.i.d., hydrocodone/APAP 5 one tablet p.o. q.6 hours p.r.n. moderate pain, Tessalon 100 mg p.o. t.i.d. p.r.n. cough. PHYSICAL EXAMINATION: GENERAL: Significant for a female appearing her stated age, alert and oriented, no acute distress. Pulse 79, respirations 16, blood pressure 151/65, O2 sat 98% on room air. HEENT: Vision, speech, hearing grossly intact. Oral lesion is noted. NECK: Supple without mass. HEART: Regular rhythm. CHEST: Clear. ABDOMEN: Soft, nontender, bowel sounds present. EXTREMITIES: The patient has 1+ edema, right calf nontender. MUSCULOSKELETAL: The patient has functional active range of motion both upper limbs and both lower limbs. NEUROLOGIC: Strength 4-/5 lower limbs, 4/5 in both upper limbs. Sensation is grossly intact to touch. Cognition grossly intact. She reports some bladder incontinence. She is continent of bowel. Sensation is intact in the lower limbs. IMPRESSION: 1. Fall with swelling right leg suggestive of ruptured Conteh cyst versus small hematoma. 2. History of recurrent falls. 3. End-stage renal disease, on dialysis three times a week. 4. Chronic constipation. 5. History of atrial fibrillation, on Eliquis and amiodarone. 6. Osteoarthritis. PLAN: The patient is admitted for a comprehensive program of inpatient rehabilitation with goal of maximizing level of functional independence prior to discharge home with home health care and family. The patient will have PT, OT 90 minutes per day in each discipline 5 days a week for 2 weeks with the above goals in mind. Rehabilitation nursing assist with bowel, bladder, skin care, medication administration, pain management and director social service to assist with discharge planning, community reentry, speech therapy to do cognitive assessment and treat as indicated. Follow up with hospitalist service in lieu of PCP as per their schedule. ESTIMATED LENGTH OF STAY: Two weeks. PROGNOSIS: Rehab prognosis appears good for goal of discharging home with home health care and daughter, modified independence to supervision for ADLs and mobility skills. Please see post-admission physician evaluation for details of plan of care. The patient and family may certainly want to consider Assisted Living Facility setting upon discharge if appropriate due to her history of recurrent falls and visits to the ED. Job ID: [id number] DocumentID: [id number] Dictated Date: 09/03/2018 21:40:12 Line Maintenance Date: 09/03/2018 23:08:48 Dictated By: MARLO TRISTAN MD [facility]
[2018-09-04 05:48] VITALS: BP 152/66
[2018-09-04 06:04] VITALS: BP 129/65
[2018-09-04] MEDS: LEVOTHYROXINE 25 MCG (LEVOTHROID) TAB PO SCH (06:24)
[2018-09-04] MEDS: KCL 20 MEQ TAB (K-DUR) PO SCH (06:52)
--- NOTE | 2018-09-04 08:05 | PM & R (SOAP) Progress Note ---
Subjective This was a face to face visit with the patient. Date Seen by Provider: Sep 04, 2018 Time Seen by Provider: 07:40 Subjective/Events-last exam Patient was seen in her room this AM Patient Adjusting well to unit.Patient min assist for transfers Review of Systems Cardiovascular: Edema Neurological: Weakness Objective Physician Exam Last Set of Vital Signs Vital Signs Date Time Temp Pulse Resp B/P (MAP) Pulse Ox O2 Delivery O2 Flow Rate FiO2 09/04/18 06:04 98.9 76 16 129/65 (86) 95 Room Air Capillary Refill : I&O Intake and Output 09/04/18 00:00 Intake Total 230 ml Output Total 1 ml Balance 229 ml Intake Oral 230 ml Output Urine Total 1 ml Daily Weight Change No General: Alert, Oriented X3, Cooperative, No Acute Distress HEENT: Atraumatic, PERRLA, EOMI, Mucous Memb Moist/[place] Neck: Supple, No JVD Lungs: Clear to Auscultation Heart: Regular Rate Abdomen: Normal Bowel Sounds, Soft, No Tenderness Extremities: Other (1 plus swelling RT leg) Skin: No Rashes Neuro: Strength at 5/5 X4 Ext (BLower limbs), Other (Strength 4/5 both upper limbs) Assessment/Plan Assessment and Plan Fall with swelling rt leg suggestive of ruptured Conteh cyst vs small hematoma improving with decreased swelling and tenderness-ecchymosis over legs and arms multifactorila HX of recurrent falls ESRD on Dialysis TIW Chronic constipation HX of A FIB on Eliquis and amiodarone OA Plan Continue PT/OT Team Conference tomorrow F/U with Team/patient and family re discharge options Co-Morbidities that are continuing to impact the rehab process: (include details ) MARLO TRISATN MD Sep 04, 2018 08:05
[2018-09-04] MEDS: FUROSEMIDE 40 MG (LASIX) TAB PO SCH (08:17)
[2018-09-04] MEDS: DOCUSATE SODIUM 100 MG (COLACE) CAP PO SCH ×2 (08:17→20:10)
[2018-09-04] MEDS: APIXABAN 2.5 MG (ELIQUIS) TABLET PO SCH ×2 (08:17→20:10)
[2018-09-04] MEDS: PANTOPRAZOLE 40 MG (PROTONIX) TAB PO SCH (08:17)
[2018-09-04] MEDS: DILTIAZEM 120 MG (CARDIZEM CD) CAP PO SCH (08:17)
[2018-09-04] MEDS: guaiFENesin (MUCINEX) 600 MG TAB PO SCH ×2 (08:17→20:10)
[2018-09-04] MEDS: AMIODARONE 200 MG (CORDARONE) TAB PO SCH (08:18)
[2018-09-04 08:19] VITALS: BP 142/67
--- NOTE | 2018-09-04 08:30 | Occupational Ther Daily Note ---
OT Current Status-Daily Note Subjective Pt alert, lying in bed. Pt agrees to therapy. No c/o pain at this time. Mental Status/Objective Patient Orientation: Person, Place, Time, Situation Therapy Code Descriptions/Definitions Functional [place] Measure: 0=Not Assessed/NA 4=Minimal Assistance 1=Total Assistance 5=Supervision or Setup 2=Maximal Assistance 6=Modified [place] 3=Moderate Assistance 7=Complete [place] Attachments: IV ADL-Treatment Therapy Code Descriptions/Definitions Functional [place] Measure: 0=Not Assessed/NA 4=Minimal Assistance 1=Total Assistance 5=Supervision or Setup 2=Maximal Assistance 6=Modified [place] 3=Moderate Assistance 7=Complete [place] Therapy Quality Codes: 6 Independent with activity with or without an assistive device 5 Patient requires set up or clean up by helper. Patient completes activity by themselves 4 Supervision or touching assist (CGA). [place] provide cues , steadying assist 3 The helper provides less than half the effort to complete the activity 2 The helper provides more than half the effort to complete the activity 1 Dependent. The helper does all the effort to complete an activity 7 Patient refused to complete or attempt activity 9 The patient did not perform the activity before the current illness or injury 88 Not attempted due to Medical conditions or safety concerns Grooming (FIM): 6 (Sitting at sink, pt complete grooming by self.) Oral Hygiene (QC): 6 Bathing (FIM): 5 (After set up, pt able to complete with supervision for sponge bath sitting at the sink. Pt declined to shower at this time.) Bathing Location: L Arm, R Arm, L Upper Leg, R Upper Leg, L Lower Leg ( including foot), R Lower Leg (including foot), Chest, Abdomen, Buttocks, Perineal Area Shower/Bathe Self (QC): 4 Upper Body (FIM): 5 (After set up, pt is able to don/doff upper body clothing.) Upper Body Dressing (QC): 5 Lower Body Dressing (FIM): 5 (After set up, pt able to don/doff lower body clothing with supervision. Donned/doffed slippers.) Lower Body Dressing (QC): 4 On/Off Footwear (QC): 5 Toileting (FIM): 5 (Using grabbars and elevated toilet seat, pt able to complete with supervision for safety.) Toileting Hygiene (QC): 4 Toilet/Commode Transfer (FIM): 5 (Using FWW, elevated toilet seat and grabbars pt able to complete with supervision.) Toilet Transfer (QC): 4 Other Treatment Pt ambulated to therapy gym using FWW. Completed arm bike 8 min at 15 dowell resistance, with multiple recovery breaks, to increase strength and activity tolerance for daily functional tasks. Resistive clothespins completed, 50x with each hand, for wellness nurse rn/pinch strength during dressing and bathing. Pt ambulated back to room using FWW and sat on EOB after therapy. Nrsg present in room. Call light/phone in reach. All needs met in room. OT Short Term Goals Short Term Goals Time Frame: Sep 10, 2018 Bathing(FIM): 5 Upper Body Dressing(FIM): 5 Transfers (B,C,W/C) (FIM): 5 Toilet/Commode Transfer(FIM): 5 Additional Short Term Goals: 1-Demonstrate ADL Tasks, 2-Verbalize Understanding , 3-ImproveStrength/Zakiya 1=Demonstrate adherence to instructed precautions during ADL tasks. 2=Patient will verbalize/demonstrate understanding of assistive devices/ modifications for ADL. 3=Patient will improve strength/tolerance for activity to enable patient to perform ADL's. OT Metal Checker Goals Metal Checker Goals Time Frame: Sep 20, 2018 Eating (FIM): 6 Eating (QC): 6 Groomin Oral Hygiene (QC): 6 Bathing(FIM): 6 Shower/Bathe Self (QC): 6 Upper Body Dressing(FIM): 6 Upper Body Dressing (QC): 6 Lower Body Dressing(FIM): 6 Lower Body Dressing (QC): 6 On/Off Footwear (QC): 6 Toileting(FIM): 6 Toileting Hygiene (QC): 6 Toilet/Commode Transfer(FIM): 6 Toilet/Commode Transfer (QC): 6 Tub Transfer(FIM): 6 Shower Transfer(FIM): 6 Additional Goals: 1-Demonstrate ADL Tasks, 2-Verbalize Understanding, 3- ImproveStrength/Zakiya 1=Demonstrate adherence to instructed precautions during ADL tasks. 2=Patient will verbalize/demonstrate understanding of assistive devices/ modifications for ADL. 3=Patient will improve strength/tolerance for activity to enable patient to perform ADL's. OT Education/Plan Problem List/Assessment Pt would benefit from skilled OT to increase her independence in basic self care to allow her to safely return home Discharge Recommendations Plan/Recommendations: Continue POC Treatment Plan/Plan of Care Patient would benefit from OT for education, treatment and training to promote independence in ADL's, mobility, safety and/or upper extremity function for ADL' s. Plan of Care: ADL Retraining, Functional Mobility, Group Exercise/Act as Ind ( education, exercise, activity tolerance, functional activities, socialization), UE Funct Exercise/Act, UE Neuromus Re-Ed/Coord, OTHER (energy conservation education and practice) Treatment Duration: Sep 20, 2018 Frequency: Modified Program (IRF) Estimated Hrs Per Day: 1.5 hours per day Agreement: Yes Rehab Potential: Good Time/GCodes Start Time: 07:00 Stop Time: 08:30 Total Time Billed (hr/min): 90 Billed Treatment Time 1 visit-ADL 4 (65 min) EX 2 (25 min) KIP LEONARD Sep 04, 2018 08:30
--- NOTE | 2018-09-04 09:32 | Physical Therapy Daily Note ---
PT Daily Note-Current Subjective Agreeable to PT. After treatment, reports she feels tired. Mental Status Patient Orientation: Person, Place, Time, Situation Transfers Therapy Code Descriptions/Definitions Functional [place] Measure: 0=Not Assessed/NA 4=Minimal Assistance 1=Total Assistance 5=Supervision or Setup 2=Maximal Assistance 6=Modified [place] 3=Moderate Assistance 7=Complete [place] Therapy Quality Codes: 6 Independent with activity with or without an assistive device 5 Patient requires set up or clean up by helper. Patient completes activity by themselves 4 Supervision or touching assist (CGA). [place] provide cues , steadying assist 3 The helper provides less than half the effort to complete the activity 2 The helper provides more than half the effort to complete the activity 1 Dependent. The helper does all the effort to complete an activity 7 Patient refused to complete or attempt activity 9 The patient did not perform the activity before the current illness or injury 88 Not attempted due to Medical conditions or safety concerns Transfers (B, C, W/C) (FIM): 4 (CGA for safety ) Supine to/from Sit: 4 Sit to/from Stand: 4 CGA with transfers for safety. Sit to stand several times during treatment for transitional movements. Weight Bearing Right Lower Extremity: Right Full Weight Bearing Left Lower Extremity: Left Full Weight Bearing Gait Training Does the Patient Walk?: Yes Gait (FIM): 2 Distance (FIM): 4=896-24 ft Distance: 125 ft x 4 Gait Assistive Device: FWW slow gait; slightly forward flexed at hips, corrects with cues; decreased speed. Exercises Seated Therapy Exercises: Ankle pumps, Sit to stand, Long arc quads, Hip flexion, Hamstring Curls Seated Reps: 15 (2 sets; to increase functional LE strength for gait and transfer progress. ) Assessment Pt takes extra time to complete tasks and requires rest breaks. She is cooperative and pleasnat and motivated. PT Short Term Goals Short Term Goals Time Frame: Sep 10, 2018 Transfers (B,C,W/C) (FIM): 5 Gait (FIM): 5 PT Ceo And Founder Goals Ceo And Founder Goals PT Mcc Goals Time Frame: Sep 20, 2018 Transfers (B,C,W/C) (FIM): 7 Sit to Lying (QC): 6 Lying-Sitting on Side/Bed(QC): 6 Sit to Stand (QC): 6 Rollin Roll Left to Right (QC): 6 Chair/Ftv-ui-Bjlgj Xfer(QC): 6 Car Transfer (QC): 6 Does the Patient Walk: Yes Gait (FIM): 6 Gait distance (FIM): 3=150 ft Walk 10 feet (QC): 6 Walk 10ft-Uneven Surface(QC): 6 Walk 50ft with 2 Turns (QC): 6 Walk 150 ft (QC): 6 Gait Level of Assist: 6 Gait Assistive Device: FWW Does the Pt use WC or Scooter?: No Stairs (FIM): 5 (household) # of Steps: 4 1 Step (curb) (QC): 6 4 Steps (QC): 6 12 Steps (QC): 88 PT Plan Problem List Problem List: Activity Tolerance, Functional Strength, Safety, Balance, Gait, Transfer, Bed Mobility Treatment/Plan Treatment Plan: Continue Plan of Care Treatment Plan: Bed Mobility, Education, Functional Activity Zakiya, Functional Strength, Group Therapy, Gait, Safety, Therapeutic Exercise, Transfers Treatment Duration: Sep 20, 2018 Frequency: Modified Program (IRF) Estimated Hrs Per Day: 1.5 hours per day Patient and/or Family Agrees t: Yes Safety Risks/Education Patient Education: Transfer Techniques, Safety Issues Teaching Recipient: Patient Teaching Methods: Demonstration, Discussion Response to Teaching: Reinforcement Needed Time/GCodes Time In: 830 Time Out: 930 Total Billed Treatment Time: 60 Total Billed Treatment visit GT 30 EX 30 KIP YUAN PT Sep 04, 2018 09:32
--- NOTE | 2018-09-04 09:56 | ST Cognitive Linguistic Eval ---
Speech Evaluation-General Medical Diagnosis debility Onset Date: Aug 31, 2018 Therapy Diagnosis Therapy Diagnosis: Cognitive-communication Precautions Precautions/Isolations: Fall Prevention, Standard Precautions Medical History Pertinent Medical History: Atrial Fib, Arthritis, GERD, HTN, Hypothroidism, OA , Renal Insufficiency (dialysis 3x/wk) Reviewed History: Yes Social History Current Living Status: Alone (family lives nearby and checks frequently) Speech PLF-Current Status Prior Level of Function Patient lived alone and was independent for most daily tasks. She has support from her family for her needs such as shopping. Subjective Patient was pleasant and cooperative with the evaluation process. Language Eval: Auditory Comprehends Simple Yes/No Ques: Functional Indent/Objects Multiple [place]: Functional Ident/Pics in Multiple [place]: Functional Follows 1-Step Commands: Functional Follows Complex Directions: Functional Follows General Conversations: Functional Patient is very [place] and required repetition of stimuli. Language Eval: Verbal Language Completes Spontaneous Greeting: Functional Produces Auto, Serial Info: Functional Imitates Simple Words/Phrases: Functional Word Finding: Functional Requests Basic Needs: Functional States Basic Personal Info: Functional Expresses Complex Ideas: Functional Cognitive Patient Orientation Patient is oriented x3. Objective Cognitive Domain Attention: WNL Memory: WNL Problem Solving: Functional Executive Functions: WN Objective Formal/Standardized Tests [facility] Cognitive/Communication Results Memory: Immediate: 3/3, Delayed: 3/3, Orientation: 07/29, Problem Solving: Simple 5/5, Complex: 4/5, Auditory Comprehension: Simple: 5/5, Complex: 5/5 Oral Motor/Speech Production Within Functional Limits Impression Patient is an 83 year old female who has been admitted to this ARU for strengthening. Patient was a patient here within the past 2 years. Patient demo appropriate skills for memory and problem solving. Patient is not recommended for skilled ST at this time. Communication/Social Cognition Comprehension: 7 Expression: 7 Social Interaction: 7 Problem Solvin Memory: 7 Speech Patient Assess Expression of Ideas/Wants: Expression (4) Understanding Verbal Content: Understands (4) Brief Interview-Mental Status: Yes Repetition of Three Words: Three (3) Temporal Orientation: Year: Correct (3) Temporal Orientation: Month: Accurate within 5 days(2) Recall : Wear to say "Sock": Yes, no cue required (2) Recall : Color: Yes, no cue required (2) Recall : Bed: Yes,after cueing (1) Memory/Recall Ability: Current season, That he or she is in a hsp/hsp unit Speech Short Term Goals Short Term Goals Short Term Goals Patient will be able to follow instructions during therapy sessions at 90% or greater. Patient will be able to express wants/needs with 90% or greater. Speech Due Diligence Coordinator Goals Due Diligence Coordinator Goals Patient will improve safety awareness and independence for safe return home. Speech-Plan Patient/Family Goals Patient/Family Goals: Patient plans to return home with family assistance. Treatment Plan Speech Therapy Treatment Plan: Continue Plan of Care Patient is not recommended for skilled ST at this time. Treatment Duration: Sep 04, 2018 Frequency: 1 time per week Estimated Hrs Per Day: .25 hour per day Rehab Potential: Good Barriers to Learning: Patient is [place] Pt/Family Agrees to Plan: Yes Safety Risks/Education Teaching Recipient: Patient Teaching Methods: Discussion ( ) Response to Teaching: Verbalize Understanding Education Topics Provided: Safety within her room. Time Speech Therapy Time In: 09:30 Speech Therapy Time Out: 09:45 Total Billed Time: 15 Billed Treatment Time 1, SENDY Delarosa Sep 04, 2018 09:56
--- NOTE | 2018-09-04 11:42 | Physical Therapy Daily Note ---
PT Daily Note-Current Subjective Agrees to PT. Reports her legs are tired today. Transfers Therapy Code Descriptions/Definitions Functional [place] Measure: 0=Not Assessed/NA 4=Minimal Assistance 1=Total Assistance 5=Supervision or Setup 2=Maximal Assistance 6=Modified [place] 3=Moderate Assistance 7=Complete [place] Therapy Quality Codes: 6 Independent with activity with or without an assistive device 5 Patient requires set up or clean up by helper. Patient completes activity by themselves 4 Supervision or touching assist (CGA). [place] provide cues , steadying assist 3 The helper provides less than half the effort to complete the activity 2 The helper provides more than half the effort to complete the activity 1 Dependent. The helper does all the effort to complete an activity 7 Patient refused to complete or attempt activity 9 The patient did not perform the activity before the current illness or injury 88 Not attempted due to Medical conditions or safety concerns Transfers (B, C, W/C) (FIM): 4 Supine to/from Sit: 4 Sit to/from Stand: 4 Weight Bearing Right Lower Extremity: Right Full Weight Bearing Left Lower Extremity: Left Full Weight Bearing Gait Training Does the Patient Walk?: Yes Gait (FIM): 2 Distance: 125 ft x 4 Gait Assistive Device: FWW Exercises Standing: Hip Abduction, Hamstring curls, Heel/toe raises, Marching, Mini squats Standing Reps: 15 Sit to stand exercise x 5 Treatments In bed post treatment with needs met. Assessment Current Status: Good Progress Progressing. Tired this visit but cooperative and motivated. PT Short Term Goals Short Term Goals Time Frame: Sep 10, 2018 Transfers (B,C,W/C) (FIM): 5 Gait (FIM): 5 PT Product Marketing Programs Manager Goals Prison Goals PT Prison Goals Time Frame: Sep 20, 2018 Transfers (B,C,W/C) (FIM): 7 Sit to Lying (QC): 6 Lying-Sitting on Side/Bed(QC): 6 Sit to Stand (QC): 6 Rollin Roll Left to Right (QC): 6 Chair/Glm-xw-Lgeoz Xfer(QC): 6 Car Transfer (QC): 6 Does the Patient Walk: Yes Gait (FIM): 6 Gait distance (FIM): 3=150 ft Walk 10 feet (QC): 6 Walk 10ft-Uneven Surface(QC): 6 Walk 50ft with 2 Turns (QC): 6 Walk 150 ft (QC): 6 Gait Level of Assist: 6 Gait Assistive Device: FWW Does the Pt use WC or Scooter?: No Stairs (FIM): 5 (household) # of Steps: 4 1 Step (curb) (QC): 6 4 Steps (QC): 6 12 Steps (QC): 88 PT Plan Problem List Problem List: Activity Tolerance, Functional Strength, Safety Treatment/Plan Treatment Plan: Continue Plan of Care Treatment Plan: Bed Mobility, Education, Functional Activity Zakiya, Functional Strength, Group Therapy, Gait, Safety, Therapeutic Exercise, Transfers Treatment Duration: Sep 20, 2018 Frequency: Modified Program (IRF) Estimated Hrs Per Day: 1.5 hours per day Patient and/or Family Agrees t: Yes Time/GCodes Time In: 1015 Time Out: 1045 Total Billed Treatment Time: 30 Total Billed Treatment visit EX 15 GT 15 KIP YUAN PT Sep 04, 2018 11:42
--- NOTE | 2018-09-04 14:35 | Physical Therapy Daily Note ---
PT Daily Note-Current Subjective Patient agrees to PT. Pain Numeric Pain Scale: 0-No Pain Location: No Pain Reported Mental Status Patient Orientation: Normal For Age Transfers Therapy Code Descriptions/Definitions Functional [place] Measure: 0=Not Assessed/NA 4=Minimal Assistance 1=Total Assistance 5=Supervision or Setup 2=Maximal Assistance 6=Modified [place] 3=Moderate Assistance 7=Complete [place] Therapy Quality Codes: 6 Independent with activity with or without an assistive device 5 Patient requires set up or clean up by helper. Patient completes activity by themselves 4 Supervision or touching assist (CGA). [place] provide cues , steadying assist 3 The helper provides less than half the effort to complete the activity 2 The helper provides more than half the effort to complete the activity 1 Dependent. The helper does all the effort to complete an activity 7 Patient refused to complete or attempt activity 9 The patient did not perform the activity before the current illness or injury 88 Not attempted due to Medical conditions or safety concerns Transfers (B, C, W/C) (FIM): 5 Scootin Rollin Roll Left to Right (QC): 5 Supine to/from Sit: 5 Sit to/from Stand: 5 Sit to Lying (QC): 5 Sit to Stand (QC): 5 Patient did demonstrate ability to toilet self without difficulty Weight Bearing Right Lower Extremity: Right Full Weight Bearing Left Lower Extremity: Left Full Weight Bearing Gait Training Does the Patient Walk?: Yes Gait (FIM): 1 Distance (FIM): 1=up to 49 ft Distance: 35' x 2 Walk 10 feet (QC): 5 Gait Level of Assist: 5 Gait Assistive Device: FWW slow, shuffle gait sequence Exercises Seated Therapy Exercises: Ankle pumps, Long arc quads Seated Reps: 15 (2 sets) Assessment Patient returned to bed with needs met. Patient reports fatigue on this date. PT to increase activity as tolerated by patient. PT Short Term Goals Short Term Goals Time Frame: Sep 10, 2018 Transfers (B,C,W/C) (FIM): 5 Gait (FIM): 5 PT Shelter Goals Rim Roller Operator Goals PT Rim Roller Operator Goals Time Frame: Sep 20, 2018 Transfers (B,C,W/C) (FIM): 7 Sit to Lying (QC): 6 Lying-Sitting on Side/Bed(QC): 6 Sit to Stand (QC): 6 Rollin Roll Left to Right (QC): 6 Chair/Ink-cq-Motuq Xfer(QC): 6 Car Transfer (QC): 6 Does the Patient Walk: Yes Gait (FIM): 6 Gait distance (FIM): 3=150 ft Walk 10 feet (QC): 6 Walk 10ft-Uneven Surface(QC): 6 Walk 50ft with 2 Turns (QC): 6 Walk 150 ft (QC): 6 Gait Level of Assist: 6 Gait Assistive Device: FWW Does the Pt use WC or Scooter?: No Stairs (FIM): 5 (household) # of Steps: 4 1 Step (curb) (QC): 6 4 Steps (QC): 6 12 Steps (QC): 88 PT Plan Treatment/Plan Treatment Plan: Continue Plan of Care Treatment Plan: Bed Mobility, Education, Functional Activity Zakiya, Functional Strength, Group Therapy, Gait, Safety, Therapeutic Exercise, Transfers Treatment Duration: Sep 20, 2018 Frequency: Modified Program (IRF) Estimated Hrs Per Day: 1.5 hours per day Patient and/or Family Agrees t: Yes Time/GCodes Time In: 1413 Time Out: 1433 Total Billed Treatment Time: 20 Total Billed Treatment 1 visit FA 20 min DOMINIQUE JARRELL PT Sep 04, 2018 14:35
--- NOTE | 2018-09-04 14:47 | Occupational Ther Daily Note ---
OT Current Status-Daily Note Subjective Pt dozing in bed, woke easily to name. Pt agrees to therapy. No c/o pain at this time. Mental Status/Objective Patient Orientation: Person, Place, Time, Situation Therapy Code Descriptions/Definitions Functional [place] Measure: 0=Not Assessed/NA 4=Minimal Assistance 1=Total Assistance 5=Supervision or Setup 2=Maximal Assistance 6=Modified [place] 3=Moderate Assistance 7=Complete [place] Attachments: IV ADL-Treatment Therapy Code Descriptions/Definitions Functional [place] Measure: 0=Not Assessed/NA 4=Minimal Assistance 1=Total Assistance 5=Supervision or Setup 2=Maximal Assistance 6=Modified [place] 3=Moderate Assistance 7=Complete [place] Therapy Quality Codes: 6 Independent with activity with or without an assistive device 5 Patient requires set up or clean up by helper. Patient completes activity by themselves 4 Supervision or touching assist (CGA). [place] provide cues , steadying assist 3 The helper provides less than half the effort to complete the activity 2 The helper provides more than half the effort to complete the activity 1 Dependent. The helper does all the effort to complete an activity 7 Patient refused to complete or attempt activity 9 The patient did not perform the activity before the current illness or injury 88 Not attempted due to Medical conditions or safety concerns Other Treatment Mod A to scoot up in bed. Pt then complete UE tasks to increase AROM, strength and activity tolerance. Pt tolerated for 30 min and demonstrated good strength and continues to improve with activity tolerance. After therapy, pt lying in bed with call light/phone in reach. All needs met in room. OT Short Term Goals Short Term Goals Time Frame: Sep 10, 2018 Bathing(FIM): 5 Upper Body Dressing(FIM): 5 Transfers (B,C,W/C) (FIM): 5 Toilet/Commode Transfer(FIM): 5 Additional Short Term Goals: 1-Demonstrate ADL Tasks, 2-Verbalize Understanding , 3-ImproveStrength/Zakiya 1=Demonstrate adherence to instructed precautions during ADL tasks. 2=Patient will verbalize/demonstrate understanding of assistive devices/ modifications for ADL. 3=Patient will improve strength/tolerance for activity to enable patient to perform ADL's. OT Chief Of Party Goals [place] Goals Time Frame: Sep 20, 2018 Eating (FIM): 6 Eating (QC): 6 Groomin Oral Hygiene (QC): 6 Bathing(FIM): 6 Shower/Bathe Self (QC): 6 Upper Body Dressing(FIM): 6 Upper Body Dressing (QC): 6 Lower Body Dressing(FIM): 6 Lower Body Dressing (QC): 6 On/Off Footwear (QC): 6 Toileting(FIM): 6 Toileting Hygiene (QC): 6 Toilet/Commode Transfer(FIM): 6 Toilet/Commode Transfer (QC): 6 Tub Transfer(FIM): 6 Shower Transfer(FIM): 6 Additional Goals: 1-Demonstrate ADL Tasks, 2-Verbalize Understanding, 3- ImproveStrength/Zakiya 1=Demonstrate adherence to instructed precautions during ADL tasks. 2=Patient will verbalize/demonstrate understanding of assistive devices/ modifications for ADL. 3=Patient will improve strength/tolerance for activity to enable patient to perform ADL's. OT Education/Plan Problem List/Assessment Pt would benefit from skilled OT to increase her independence in basic self care to allow her to safely return home Discharge Recommendations Plan/Recommendations: Continue POC Treatment Plan/Plan of Care Patient would benefit from OT for education, treatment and training to promote independence in ADL's, mobility, safety and/or upper extremity function for ADL' s. Plan of Care: ADL Retraining, Functional Mobility, Group Exercise/Act as Ind ( education, exercise, activity tolerance, functional activities, socialization), UE Funct Exercise/Act, UE Neuromus Re-Ed/Coord, OTHER (energy conservation education and practice) Treatment Duration: Sep 20, 2018 Frequency: Modified Program (IRF) Estimated Hrs Per Day: 1.5 hours per day Agreement: Yes Rehab Potential: Good Time/GCodes Start Time: 13:00 Stop Time: 13:30 Total Time Billed (hr/min): 30 Billed Treatment Time 1 visit-EX 2 (30 min) KIP LEONARD Sep 04, 2018 14:47
[2018-09-04 16:00] VITALS: BP 147/68
[2018-09-05 05:59] VITALS: BP 150/70
[2018-09-05] MEDS: LEVOTHYROXINE 25 MCG (LEVOTHROID) TAB PO SCH (06:19)
--- NOTE | 2018-09-05 07:57 | Occupational Ther Daily Note ---
OT Current Status-Daily Note Subjective Pt alert, sitting up. Pt agrees to therapy. No c/o pain at this time. Pt to go to dialysis today. Mental Status/Objective Patient Orientation: Person, Place, Time, Situation Therapy Code Descriptions/Definitions Functional [place] Measure: 0=Not Assessed/NA 4=Minimal Assistance 1=Total Assistance 5=Supervision or Setup 2=Maximal Assistance 6=Modified [place] 3=Moderate Assistance 7=Complete [place] Attachments: IV ADL-Treatment Therapy Code Descriptions/Definitions Functional [place] Measure: 0=Not Assessed/NA 4=Minimal Assistance 1=Total Assistance 5=Supervision or Setup 2=Maximal Assistance 6=Modified [place] 3=Moderate Assistance 7=Complete [place] Therapy Quality Codes: 6 Independent with activity with or without an assistive device 5 Patient requires set up or clean up by helper. Patient completes activity by themselves 4 Supervision or touching assist (CGA). [place] provide cues , steadying assist 3 The helper provides less than half the effort to complete the activity 2 The helper provides more than half the effort to complete the activity 1 Dependent. The helper does all the effort to complete an activity 7 Patient refused to complete or attempt activity 9 The patient did not perform the activity before the current illness or injury 88 Not attempted due to Medical conditions or safety concerns Eating (FIM): 7 (Pt able to open packages/containers then use regular utensils to eat.) Eating (QC): 6 Grooming (FIM): 6 (Sitting at sink, pt able to complete.) Oral Hygiene (QC): 6 Bathing (FIM): 5 (Assist to adjust temperature and turn water on/off. Using tub transfer bench, hand held shower and grabbars pt able to complete by self.) Bathing Location: L Arm, R Arm, L Upper Leg, R Upper Leg, L Lower Leg ( including foot), R Lower Leg (including foot), Chest, Abdomen, Buttocks, Perineal Area Shower/Bathe Self (QC): 5 Upper Body (FIM): 5 (After set up, pt able to complete by self.) Upper Body Dressing (QC): 5 Lower Body Dressing (FIM): 5 (After set up, pt complete lower body dressing with supervision.) Lower Body Dressing (QC): 4 On/Off Footwear (QC): 5 (After set up, pt able to complete.) Toileting (FIM): 5 (Supervision using grabbars and FWW.) Toileting Hygiene (QC): 4 Toilet/Commode Transfer (FIM): 5 (Supervision using FWW and grabbars.) Toilet Transfer (QC): 4 Tub Transfer(FIM): 5 (Supervision using tub transfer bench, FWW and grabbars.) Other Treatment Pt given blue therapy sponge to increase strategic planning manager and pinch strength. Pt instructed to use throughout day. After therapy, pt sitting in recliner with call light/phone in reach. All needs met in room. OT Short Term Goals Short Term Goals Time Frame: Sep 10, 2018 Bathing(FIM): 5 Upper Body Dressing(FIM): 5 Transfers (B,C,W/C) (FIM): 5 Toilet/Commode Transfer(FIM): 5 Additional Short Term Goals: 1-Demonstrate ADL Tasks, 2-Verbalize Understanding , 3-ImproveStrength/Zakiya 1=Demonstrate adherence to instructed precautions during ADL tasks. 2=Patient will verbalize/demonstrate understanding of assistive devices/ modifications for ADL. 3=Patient will improve strength/tolerance for activity to enable patient to perform ADL's. OT Physical Meteorologist Goals Physical Meteorologist Goals Time Frame: Sep 20, 2018 Eating (FIM): 6 Eating (QC): 6 Groomin Oral Hygiene (QC): 6 Bathing(FIM): 6 Shower/Bathe Self (QC): 6 Upper Body Dressing(FIM): 6 Upper Body Dressing (QC): 6 Lower Body Dressing(FIM): 6 Lower Body Dressing (QC): 6 On/Off Footwear (QC): 6 Toileting(FIM): 6 Toileting Hygiene (QC): 6 Toilet/Commode Transfer(FIM): 6 Toilet/Commode Transfer (QC): 6 Tub Transfer(FIM): 6 Shower Transfer(FIM): 6 Additional Goals: 1-Demonstrate ADL Tasks, 2-Verbalize Understanding, 3- ImproveStrength/Zakiya 1=Demonstrate adherence to instructed precautions during ADL tasks. 2=Patient will verbalize/demonstrate understanding of assistive devices/ modifications for ADL. 3=Patient will improve strength/tolerance for activity to enable patient to perform ADL's. OT Education/Plan Problem List/Assessment Pt would benefit from skilled OT to increase her independence in basic self care to allow her to safely return home Discharge Recommendations Plan/Recommendations: Continue POC Treatment Plan/Plan of Care Patient would benefit from OT for education, treatment and training to promote independence in ADL's, mobility, safety and/or upper extremity function for ADL' s. Plan of Care: ADL Retraining, Functional Mobility, Group Exercise/Act as Ind ( education, exercise, activity tolerance, functional activities, socialization), UE Funct Exercise/Act, UE Neuromus Re-Ed/Coord, OTHER (energy conservation education and practice) Treatment Duration: Sep 20, 2018 Frequency: Modified Program (IRF) Estimated Hrs Per Day: 1.5 hours per day Agreement: Yes Rehab Potential: Good Time/GCodes Start Time: 06:45 Stop Time: 08:00 Total Time Billed (hr/min): 75 Billed Treatment Time 1 visit ADL 4 (65 min) EX 1 (10 min) KIP LEONARD Sep 05, 2018 07:57
[2018-09-05] MEDS: DILTIAZEM 120 MG (CARDIZEM CD) CAP PO SCH (08:02)
[2018-09-05] MEDS: guaiFENesin (MUCINEX) 600 MG TAB PO SCH ×2 (08:02→20:12)
[2018-09-05] MEDS: DOCUSATE SODIUM 100 MG (COLACE) CAP PO SCH ×2 (08:02→20:12)
[2018-09-05] MEDS: APIXABAN 2.5 MG (ELIQUIS) TABLET PO SCH ×2 (08:02→20:12)
[2018-09-05] MEDS: AMIODARONE 200 MG (CORDARONE) TAB PO SCH (08:02)
[2018-09-05] MEDS: PANTOPRAZOLE 40 MG (PROTONIX) TAB PO SCH (08:02)
--- NOTE | 2018-09-05 08:29 | Physical Therapy Daily Note ---
PT Daily Note-Current Subjective pt is hard of hearing, but a good conversationalist and able to recall custodial memories Pain Numeric Pain Scale: 0-No Pain Comment: pain in legs with moving, up to 9/10 at times tight and mm cramping Appearance pt sitting up in recliner taking meds with nurse upon this TAXATION INSPECTOR's arrival. Mental Status Patient Orientation: Person, Place, Time, Eyes Open, Situation for dialysis Transfers Therapy Code Descriptions/Definitions Functional [place] Measure: 0=Not Assessed/NA 4=Minimal Assistance 1=Total Assistance 5=Supervision or Setup 2=Maximal Assistance 6=Modified [place] 3=Moderate Assistance 7=Complete [place] Therapy Quality Codes: 6 Independent with activity with or without an assistive device 5 Patient requires set up or clean up by helper. Patient completes activity by themselves 4 Supervision or touching assist (CGA). [place] provide cues , steadying assist 3 The helper provides less than half the effort to complete the activity 2 The helper provides more than half the effort to complete the activity 1 Dependent. The helper does all the effort to complete an activity 7 Patient refused to complete or attempt activity 9 The patient did not perform the activity before the current illness or injury 88 Not attempted due to Medical conditions or safety concerns Transfers (B, C, W/C) (FIM): 5 Sit to/from Stand: 5 Sit to Stand (QC): 5 Chair/Jpu-pj-Hvozt Xfer(QC): 5 smooth safe transitions but with increased pain during wt bearing mari Weight Bearing Right Lower Extremity: Right Full Weight Bearing Left Lower Extremity: Left Full Weight Bearing Gait Training Does the Patient Walk?: Yes Distance (FIM): 7=121-03 ft Distance: 90, 60, 130 Walk 10 feet (QC): 5 Walk 50 ft with 2 Turns(QC): 5 Gait Level of Assist: 5 Gait Persons Needed: 1 Gait Assistive Device: FWW slow steady gait, kyphotic posture, decreased step length and height, fatigues quickly requiring rest breaks Stair Training Stair Training: Handrails/: 1 handrail #of Steps: 4 Stairs: Pattern: Step to 2 hands on handrail with sideways stepping Exercises Seated Therapy Exercises: Ankle pumps, Sit to stand (resting breaks, reps of 7, 4,7,2), Long arc quads, Hip flexion, Hip abd/add Seated Reps: 20 (ankle circles cw and ccw) Standing: Marching (20 reps), Mini squats (10 reps) Standing Reps: 20 (UE support with FWW, sitting rest after each exercise performed) mini squats causing increased bilat knee pain NuStep Minutes: 10 (several stopping rest breaks) NuStep Workload: 4 Treatments transfer, stair and gait training, strengthening and balance exercises Assessment Current Status: Good Progress PT Short Term Goals Short Term Goals Time Frame: Sep 10, 2018 Transfers (B,C,W/C) (FIM): 5 Gait (FIM): 5 PT Snf Goals Managing Consultant Clinical Professor Goals PT Managing Consultant Clinical Professor Goals Time Frame: Sep 20, 2018 Transfers (B,C,W/C) (FIM): 7 Sit to Lying (QC): 6 Lying-Sitting on Side/Bed(QC): 6 Sit to Stand (QC): 6 Rollin Roll Left to Right (QC): 6 Chair/Tut-ih-Wfwxt Xfer(QC): 6 Car Transfer (QC): 6 Does the Patient Walk: Yes Gait (FIM): 6 Gait distance (FIM): 3=150 ft Walk 10 feet (QC): 6 Walk 10ft-Uneven Surface(QC): 6 Walk 50ft with 2 Turns (QC): 6 Walk 150 ft (QC): 6 Gait Level of Assist: 6 Gait Assistive Device: FWW Does the Pt use WC or Scooter?: No Stairs (FIM): 5 (household) # of Steps: 4 1 Step (curb) (QC): 6 4 Steps (QC): 6 12 Steps (QC): 88 PT Plan Problem List Problem List: Activity Tolerance, Functional Strength, Balance, Gait, Transfer Treatment/Plan Treatment Plan: Continue Plan of Care Treatment Plan: Bed Mobility, Education, Functional Activity Zakiya, Functional Strength, Group Therapy, Gait, Safety, Therapeutic Exercise, Transfers Treatment Duration: Sep 20, 2018 Frequency: Modified Program (IRF) Estimated Hrs Per Day: 1.5 hours per day Patient and/or Family Agrees t: Yes Safety Risks/Education Patient Education: Gait Training, Transfer Techniques, Safety Issues Teaching Recipient: Patient Teaching Methods: Discussion Response to Teaching: Verbalize Understanding, Return Demonstration Time/GCodes Time In: 800 Time Out: 920 Total Billed Treatment Time: 80 Total Billed Treatment 1 visit FA x30 EX x20 GT x30 ANGEL SANDHU TAXATION INSPECTOR Sep 05, 2018 08:29
--- NOTE | 2018-09-05 15:02 | Occupational Ther Daily Note ---
OT Current Status-Daily Note Subjective Pt alert, sitting in w/c. Pt just returned from dialysis. Pt agrees to therapy. No c/o pain at this time. Mental Status/Objective Patient Orientation: Person, Place, Time, Situation Therapy Code Descriptions/Definitions Functional [place] Measure: 0=Not Assessed/NA 4=Minimal Assistance 1=Total Assistance 5=Supervision or Setup 2=Maximal Assistance 6=Modified [place] 3=Moderate Assistance 7=Complete [place] Attachments: IV ADL-Treatment Pt ambulated to bathroom and transferred onto toilet using grabbars and FWW, supervision. Toileting using FWW and grabbars, supervision. Pt ambulated to bed and was able to go from EOB to supine, mod I using bed rails. Pt then sat up in bed to eat early dinner. Pt was able to open packages and containers then use regular utensils to eat. Therapy Code Descriptions/Definitions Functional [place] Measure: 0=Not Assessed/NA 4=Minimal Assistance 1=Total Assistance 5=Supervision or Setup 2=Maximal Assistance 6=Modified [place] 3=Moderate Assistance 7=Complete [place] Therapy Quality Codes: 6 Independent with activity with or without an assistive device 5 Patient requires set up or clean up by helper. Patient completes activity by themselves 4 Supervision or touching assist (CGA). [place] provide cues , steadying assist 3 The helper provides less than half the effort to complete the activity 2 The helper provides more than half the effort to complete the activity 1 Dependent. The helper does all the effort to complete an activity 7 Patient refused to complete or attempt activity 9 The patient did not perform the activity before the current illness or injury 88 Not attempted due to Medical conditions or safety concerns Eating (FIM): 7 Eating (QC): 6 Toileting (FIM): 5 Toileting Hygiene (QC): 4 Toilet/Commode Transfer (FIM): 5 Toilet Transfer (QC): 4 Other Treatment Pt completed therapy sponge exercises to increase speedometer mechanic/pinch strength for fine motor daily tasks. After therapy, pt lying in bed eating dinner. Call light/ phone in reach. All needs met in room. OT Short Term Goals Short Term Goals Time Frame: Sep 10, 2018 Bathing(FIM): 5 Upper Body Dressing(FIM): 5 Transfers (B,C,W/C) (FIM): 5 Toilet/Commode Transfer(FIM): 5 Additional Short Term Goals: 1-Demonstrate ADL Tasks, 2-Verbalize Understanding , 3-ImproveStrength/Zakiya 1=Demonstrate adherence to instructed precautions during ADL tasks. 2=Patient will verbalize/demonstrate understanding of assistive devices/ modifications for ADL. 3=Patient will improve strength/tolerance for activity to enable patient to perform ADL's. OT Kennel Manager Dog Track Goals Kennel Manager Dog Track Goals Time Frame: Sep 20, 2018 Eating (FIM): 6 Eating (QC): 6 Groomin Oral Hygiene (QC): 6 Bathing(FIM): 6 Shower/Bathe Self (QC): 6 Upper Body Dressing(FIM): 6 Upper Body Dressing (QC): 6 Lower Body Dressing(FIM): 6 Lower Body Dressing (QC): 6 On/Off Footwear (QC): 6 Toileting(FIM): 6 Toileting Hygiene (QC): 6 Toilet/Commode Transfer(FIM): 6 Toilet/Commode Transfer (QC): 6 Tub Transfer(FIM): 6 Shower Transfer(FIM): 6 Additional Goals: 1-Demonstrate ADL Tasks, 2-Verbalize Understanding, 3- ImproveStrength/Zakiya 1=Demonstrate adherence to instructed precautions during ADL tasks. 2=Patient will verbalize/demonstrate understanding of assistive devices/ modifications for ADL. 3=Patient will improve strength/tolerance for activity to enable patient to perform ADL's. OT Education/Plan Problem List/Assessment Pt would benefit from skilled OT to increase her independence in basic self care to allow her to safely return home Discharge Recommendations Plan/Recommendations: Continue POC (6078) Treatment Plan/Plan of Care Patient would benefit from OT for education, treatment and training to promote independence in ADL's, mobility, safety and/or upper extremity function for ADL' s. Plan of Care: ADL Retraining, Functional Mobility, Group Exercise/Act as Ind ( education, exercise, activity tolerance, functional activities, socialization), UE Funct Exercise/Act, UE Neuromus Re-Ed/Coord, OTHER (energy conservation education and practice) Treatment Duration: Sep 20, 2018 Frequency: Modified Program (IRF) Estimated Hrs Per Day: 1.5 hours per day Agreement: Yes Rehab Potential: Good Time/GCodes Start Time: 14:55 Stop Time: 15:35 Total Time Billed (hr/min): 40 Billed Treatment Time 1 visit-ADL 2 (30 min) EX 1 (10 min) KIP LEONARD Sep 05, 2018 15:02
[2018-09-05 18:20] VITALS: BP 132/62
--- NOTE | 2018-09-05 18:58 | PM & R (SOAP) Progress Note ---
Subjective This was a face to face visit with the patient. Date Seen by Provider: Sep 05, 2018 Time Seen by Provider: 07:50 Subjective/Events-last exam Patient was seen in her room this AM Patient SBA for transfers RN reports patient with constipation -will RX Date Identified: Sep 05, 2018 Time Identified: 18:45 Medication Intervention: Meds adjusted for constipation Review of Systems Gastrointestinal: Constipation Objective Physician Exam Last Set of Vital Signs Vital Signs Date Time Temp Pulse Resp B/P (MAP) Pulse Ox O2 Delivery O2 Flow Rate FiO2 09/05/18 18:20 97.2 77 20 132/62 (85) 96 Room Air Capillary Refill : I&O Intake and Output 09/05/18 00:00 Intake Total 730 ml Output Total 100 ml Balance 630 ml Intake Oral 730 ml Output Urine Total 100 ml # Voids 2 General: Alert, Oriented X3, Cooperative, No Acute Distress HEENT: Atraumatic, PERRLA, EOMI, Mucous Memb Moist/[place] Neck: Supple, No JVD Lungs: Clear to Auscultation Heart: Regular Rate Abdomen: Normal Bowel Sounds, Soft, No Tenderness Extremities: Other (1 plus swelling RT leg) Skin: No Rashes Neuro: Strength at 5/5 X4 Ext (BLower limbs), Other (Strength 4/5 both upper limbs) Assessment/Plan Assessment and Plan Fall with swelling rt leg suggestive of Ruptured bakers cyst vs small hematoma improving Hx of recurrent falls ESRD on dialysis TIW Chronic constipation HX of A FIB on Eliquis and amiodarone OA Plan Continue PT/OT Team Conference held earlier today-See report for full functional update and POC Discharge set tentatively for 09-09-18 Adjust Bowel meds See orders Co-Morbidities that are continuing to impact the rehab process: (include details ) MARLO TRISTAN MD Sep 05, 2018 18:58
[2018-09-05] MEDS ORDERED: MILK OF MAGNESIA 400 MG/5 ML 30 ML UDC PO PRN (19:00)
--- NOTE | 2018-09-05 19:06 | Individualized Plan of Care ---
Individualized Plan of Care Rehab Nursing IPOC Order Admission Date Sep 03, 2018 at 15:00 Current Orders Orders Apixaban Tablet (Eliquis Tablet) (09/03/18 21:00) Benzonatate Capsule (Tessalon Perles) (09/03/18 15:30) Diltiazem Cd 24 Hr Capsule (Cardizem Cd (09/04/18 09:00) Docusate Sodium Capsule (Colace Capsule) (09/03/18 21:00) Furosemide Tablet (Lasix Tablet) (09/04/18 09:00) Admission Order(Inpt,Obs,Sdc) (09/03/18 15:00) Initiate Admission Nursing Pro .admission (09/03/18 15:40) Isolation Central Supply Req (09/03/18 15:40) Hydrocodone/Apap 5/325 Tablet (Lortab 5 (09/03/18 15:45) Levothyroxine Tablet (Synthroid Tablet) (09/04/18 06:30) Pantoprazole Tablet (Protonix Tablet) (09/04/18 09:00) Potassium Chloride (Tablet) (K Dur Table (09/04/18 07:00) Amiodarone Tablet (Cordarone Tablet) (09/04/18 09:00) Guaifenesin Tablet (Mucinex Tablet) (09/03/18 21:00) Sodium 2g (2000 Mg) (09/03/18 Dinner) Patient Visit (09/03/18 ) Pt Eval Moderate Complexity (09/03/18 ) Functional Activities, Ea 15 (09/03/18 ) Patient Visit (09/04/18 ) Exercise Therap, Ea 15 Min (09/04/18 ) Gait Training, Ea 15 Min (09/04/18 ) Pt Evaluate/Treat Request (09/04/18 13:37) Request Ot Evaluate & Treat (09/04/18 13:37) Request For Cognitive Services (09/04/18 13:37) Patient Visit (09/04/18 ) Functional Activities, Ea 15 (09/04/18 ) Patient Visit (09/04/18 ) Treat. Speech/Lang/Voice (09/04/18 ) Speech Sound Lang Comp (09/04/18 ) Patient Visit (09/05/18 ) Functional Activities, Ea 15 (09/05/18 ) Exercise Therap, Ea 15 Min (09/05/18 ) Gait Training, Ea 15 Min (09/05/18 ) Magnesium Hydroxide Oral Susp (Mom Oral (09/05/18 19:00) Polyethylene Glycol Powder Pkt (Miralax (09/05/18 21:00) Rehab Nursing Orders: Bowel Management, Disease Management & Educaiton, DVT Prophylaxis, Fall Prevention, Infection Prevention, Medication Management & Education, Management of Risks & Complications, Management of Skin Intergrity, Nutrition Management, Pain Management, Patient/Family Support, Safety Management Intensity of Therapy to be met Patient to be seen: Min.3h per day/5 of 7d PT IPOC Problem List: Activity Tolerance, Functional Strength, Balance, Gait, Transfer Treatment Plan: Continue Plan of Care Bed Mobility, Education, Functional Activity Zakiya, Functional Strength, Group Therapy, Gait, Safety, Therapeutic Exercise, Transfers Treatment Duration: Sep 20, 2018 Frequency: Modified Program (IRF) Estimated Hrs Per Day: 1.5 hours per day OT IPOC Problems: Decreased Activ Tolerance, Decreased UE Strength, Dependent Transfers , Impaired Funct Balance, Impaired Self-Care Skills OT Treatment, Training and Edu: Yes OT Problems Pt would benefit from skilled OT to increase her independence in basic self care to allow her to safely return home Plan of Care: ADL Retraining, Functional Mobility, Group Exercise/Act as Ind ( education, exercise, activity tolerance, functional activities, socialization), UE Funct Exercise/Act, UE Neuromus Re-Ed/Coord, OTHER (energy conservation education and practice) Treatment Duration: Sep 20, 2018 Frequency: Modified Program (IRF) Estimated Hrs Per Day: 1.[address] IPOC Speech Therapy Treatment Plan: Continue Plan of Care Treatment Duration: Sep 04, 2018 Frequency: 1 time per week Estimated Hrs Per Day: .25 hour per day Oil Refiner/Case Mgmt Oil Refiner/Case Managemen: Discharge Planning, Patient/Family Counseling Dietitian/Rn Support Services Dietitian/Rn Support Services to monitor nutritional status and make changes and/or recommendations as needed and work with speech pathology on dietary upgrades as the occur. Physician IPOC Medical Issues being managed closely and that require the 24 hour availability of a physician: ESRD on dialysis TIW Chronic constipation HX of A FIB on eliquis and amiodarone OA IGC code 16 Etiologic DX Weakness with falls Medical Issues: Bowel/Bladder Function, DVT Prophylaxis, Falls Precautions, Infection Protection, Pain Management, Other (List) (as per above) Brief Synthesis of Preadmission Screen, Post-Admission Evaluation, and Therapy Evaluations: 83 yo female who lives alone but has family nearby who had a fall at home with resulting swollen rt leg Admitted via ED and Doppler revealed findings suggestive of a ruptured Bakers cyst VS small hematoma Referred to IRU due to a decline in Functional Adel.Progressing wellPMH HX of recurrent falls,chronic constipation and A FIB onEliquis and amiodarone Medical Prognosis: Good Anticipated Length of Stay: 18 Modified Independent for adls and mobility skills Anticipated d/c Destination: Home with family and [facility] MARLO TRISTAN MD Sep 05, 2018 19:06
[2018-09-05] MEDS: POLYETHYLENE GLYCOL 17 GM (MIRALAX) PACK PO SCH (20:13)
[2018-09-06] MEDS: LEVOTHYROXINE 25 MCG (LEVOTHROID) TAB PO SCH (06:38)
[2018-09-06] MEDS: KCL 20 MEQ TAB (K-DUR) PO SCH (06:38)
[2018-09-06 06:39] VITALS: BP 130/60
--- NOTE | 2018-09-06 07:19 | Occupational Ther Daily Note ---
OT Current Status-Daily Note Subjective Pt alert, sitting in recliner. Pt agrees to therapy. No c/o pain. Pt asking about milk of mag for bowels, reported to nrsg. Mental Status/Objective Patient Orientation: Person, Place, Time, Situation Therapy Code Descriptions/Definitions Functional [place] Measure: 0=Not Assessed/NA 4=Minimal Assistance 1=Total Assistance 5=Supervision or Setup 2=Maximal Assistance 6=Modified [place] 3=Moderate Assistance 7=Complete [place] Attachments: IV ADL-Treatment Pt declined shower today. Requested sponge bath at sink. After therapy, pt sitting in recliner with call light/phone in reach. All needs met in room. Therapy Code Descriptions/Definitions Functional [place] Measure: 0=Not Assessed/NA 4=Minimal Assistance 1=Total Assistance 5=Supervision or Setup 2=Maximal Assistance 6=Modified [place] 3=Moderate Assistance 7=Complete [place] Therapy Quality Codes: 6 Independent with activity with or without an assistive device 5 Patient requires set up or clean up by helper. Patient completes activity by themselves 4 Supervision or touching assist (CGA). [place] provide cues , steadying assist 3 The helper provides less than half the effort to complete the activity 2 The helper provides more than half the effort to complete the activity 1 Dependent. The helper does all the effort to complete an activity 7 Patient refused to complete or attempt activity 9 The patient did not perform the activity before the current illness or injury 88 Not attempted due to Medical conditions or safety concerns Eating (FIM): 7 (Pt able to set self up and use regular utensils.) Eating (QC): 6 Grooming (FIM): 6 (Sitting at sink, pt able to complete by self.) Oral Hygiene (QC): 6 Upper Body (FIM): 5 (After set up, pt able to complete by self.) Upper Body Dressing (QC): 5 Lower Body Dressing (FIM): 5 (After set up, pt able to complete by self.) Lower Body Dressing (QC): 5 On/Off Footwear (QC): 6 Toileting (FIM): 6 (Using FWW and grabbars, pt able to complete.) Toileting Hygiene (QC): 6 Toilet/Commode Transfer (FIM): 6 (Using grabbars and FWW, pt able to complete.) Toilet Transfer (QC): 6 OT Short Term Goals Short Term Goals Time Frame: Sep 10, 2018 Bathing(FIM): 5 Upper Body Dressing(FIM): 5 Transfers (B,C,W/C) (FIM): 5 Toilet/Commode Transfer(FIM): 5 Additional Short Term Goals: 1-Demonstrate ADL Tasks, 2-Verbalize Understanding , 3-ImproveStrength/Zakiya 1=Demonstrate adherence to instructed precautions during ADL tasks. 2=Patient will verbalize/demonstrate understanding of assistive devices/ modifications for ADL. 3=Patient will improve strength/tolerance for activity to enable patient to perform ADL's. OT Alf Goals Mining Detail Draftsperson Goals Time Frame: Sep 20, 2018 Eating (FIM): 6 Eating (QC): 6 Groomin Oral Hygiene (QC): 6 Bathing(FIM): 6 Shower/Bathe Self (QC): 6 Upper Body Dressing(FIM): 6 Upper Body Dressing (QC): 6 Lower Body Dressing(FIM): 6 Lower Body Dressing (QC): 6 On/Off Footwear (QC): 6 Toileting(FIM): 6 Toileting Hygiene (QC): 6 Toilet/Commode Transfer(FIM): 6 Toilet/Commode Transfer (QC): 6 Tub Transfer(FIM): 6 Shower Transfer(FIM): 6 Additional Goals: 1-Demonstrate ADL Tasks, 2-Verbalize Understanding, 3- ImproveStrength/Zakiya 1=Demonstrate adherence to instructed precautions during ADL tasks. 2=Patient will verbalize/demonstrate understanding of assistive devices/ modifications for ADL. 3=Patient will improve strength/tolerance for activity to enable patient to perform ADL's. OT Education/Plan Problem List/Assessment Pt would benefit from skilled OT to increase her independence in basic self care to allow her to safely return home Discharge Recommendations Plan/Recommendations: Continue POC Treatment Plan/Plan of Care Patient would benefit from OT for education, treatment and training to promote independence in ADL's, mobility, safety and/or upper extremity function for ADL' s. Plan of Care: ADL Retraining, Functional Mobility, Group Exercise/Act as Ind ( education, exercise, activity tolerance, functional activities, socialization), UE Funct Exercise/Act, UE Neuromus Re-Ed/Coord, OTHER (energy conservation education and practice) Treatment Duration: Sep 20, 2018 Frequency: Modified Program (IRF) Estimated Hrs Per Day: 1.5 hours per day Agreement: Yes Rehab Potential: Good Time/GCodes Start Time: 07:00 Stop Time: 08:00 Total Time Billed (hr/min): 60 Billed Treatment Time 1 visit-ADL 4 (60 min) KIP LEONARD Sep 06, 2018 07:19
--- NOTE | 2018-09-06 08:41 | PM & R (SOAP) Progress Note ---
Subjective This was a face to face visit with the patient. Date Seen by Provider: Sep 06, 2018 Time Seen by Provider: 07:50 Subjective/Events-last exam Patient was seen in her room this AM Patient SBA for transfers Objective Physician Exam Last Set of Vital Signs Vital Signs Date Time Temp Pulse Resp B/P (MAP) Pulse Ox O2 Delivery O2 Flow Rate FiO2 09/06/18 06:39 98.0 84 20 130/60 (83) 96 Room Air Capillary Refill : I&O Intake and Output 09/06/18 00:00 Intake Total 500 ml Balance 500 ml Intake Oral 500 ml # Voids 3 General: Alert, Oriented X3, Cooperative, No Acute Distress HEENT: Atraumatic, PERRLA, EOMI, Mucous Memb Moist/Gail Neck: Supple, No JVD Lungs: Clear to Auscultation Heart: Regular Rate Abdomen: Normal Bowel Sounds, Soft, No Tenderness Extremities: Other (1 plus swelling RT leg) Skin: No Rashes Neuro: Strength at 5/5 X4 Ext (BLower limbs), Other (Strength 4/5 both upper limbs) Assessment/Plan Assessment and Plan Fall with swelling rt leg suggestive of ruptured bakers cyst vs small hematoma improving HX of recurrent falls ESRD on Dialysis TIW Chronic constipation meds adjusted HX of A FIB on Eliquis and amiodarone OA Plan Continue PT/OT Team Conference held yesterday-See report for full functional update and POC' Discharge set for Monday09/09/18 F/U with Hospitalist service prn Co-Morbidities that are continuing to impact the rehab process: (include details ) MARLO TRISTAN MD Sep 06, 2018 08:41
[2018-09-06] MEDS: FUROSEMIDE 40 MG (LASIX) TAB PO SCH (08:56)
[2018-09-06] MEDS: DOCUSATE SODIUM 100 MG (COLACE) CAP PO SCH ×2 (08:56→20:02)
[2018-09-06] MEDS: AMIODARONE 200 MG (CORDARONE) TAB PO SCH (08:56)
[2018-09-06] MEDS: APIXABAN 2.5 MG (ELIQUIS) TABLET PO SCH ×2 (08:57→20:02)
[2018-09-06] MEDS: guaiFENesin (MUCINEX) 600 MG TAB PO SCH ×2 (08:57→20:02)
[2018-09-06] MEDS: DILTIAZEM 120 MG (CARDIZEM CD) CAP PO SCH (08:57)
[2018-09-06] MEDS: PANTOPRAZOLE 40 MG (PROTONIX) TAB PO SCH (08:57)
--- NOTE | 2018-09-06 09:05 | Physical Therapy Daily Note ---
PT Daily Note-Current Subjective Patient agrees to PT. No c/o. She reports she is going home Monday the . Pain Numeric Pain Scale: 3 Location: Right Location Body Site: Calf Pain Description: Ache Mental Status Patient Orientation: Normal For Age Transfers Therapy Code Descriptions/Definitions Functional [place] Measure: 0=Not Assessed/NA 4=Minimal Assistance 1=Total Assistance 5=Supervision or Setup 2=Maximal Assistance 6=Modified [place] 3=Moderate Assistance 7=Complete [place] Therapy Quality Codes: 6 Independent with activity with or without an assistive device 5 Patient requires set up or clean up by helper. Patient completes activity by themselves 4 Supervision or touching assist (CGA). [place] provide cues , steadying assist 3 The helper provides less than half the effort to complete the activity 2 The helper provides more than half the effort to complete the activity 1 Dependent. The helper does all the effort to complete an activity 7 Patient refused to complete or attempt activity 9 The patient did not perform the activity before the current illness or injury 88 Not attempted due to Medical conditions or safety concerns Transfers (B, C, W/C) (FIM): 6 Scootin Sit to/from Stand: 6 Sit to Stand (QC): 6 Car Transfer (QC): 6 Weight Bearing Right Lower Extremity: Right Full Weight Bearing Left Lower Extremity: Left Full Weight Bearing Gait Training Does the Patient Walk?: Yes Gait (FIM): 6 Distance (FIM): 3=150 ft Distance: 150' x 4 Walk 10 feet (QC): 6 Walk 50 ft with 2 Turns(QC): 6 Walk 150 ft (QC): 6 Gait Level of Assist: 6 Gait Assistive Device: FWW slow and steady. requires sitting recovery periods due to fatigue. Stair Training Stair Training: Handrails/: uses walker Stairs (FIM): 5 #of Steps: 6 1 Step (curb) (QC): 5 Stairs: Pattern: Step to Level of Assist: 5 Exercises Seated Therapy Exercises: Ankle pumps, Long arc quads, Hip flexion Seated Reps: 20 (2 sets with sitting recovery periods after every sets/ exercise due to fatigue) Standing: Heel/toe raises, 3 way Ex=Flex, Abd, Ext, Marching Standing Reps: 20 (2 sets with recovery periods due between every set/exercise due to fatigue) NuStep Minutes: 10 NuStep Workload: 5 (to increase strength and functional mobility) Assessment Patient requires time to complete all functional tasks, however, is progressing with treatment plan and plans to dismiss to home on Monday the . PT to continue to address functional goals to ensure safe return to home at maximum LOF. PT Short Term Goals Short Term Goals Time Frame: Sep 10, 2018 Transfers (B,C,W/C) (FIM): 5 Gait (FIM): 5 PT Penitentiary Goals Branch Manager Goals PT Branch Manager Goals Time Frame: Sep 20, 2018 Transfers (B,C,W/C) (FIM): 7 Sit to Lying (QC): 6 Lying-Sitting on Side/Bed(QC): 6 Sit to Stand (QC): 6 Rollin Roll Left to Right (QC): 6 Chair/Nur-ho-Tykww Xfer(QC): 6 Car Transfer (QC): 6 Does the Patient Walk: Yes Gait (FIM): 6 Gait distance (FIM): 3=150 ft Walk 10 feet (QC): 6 Walk 10ft-Uneven Surface(QC): 6 Walk 50ft with 2 Turns (QC): 6 Walk 150 ft (QC): 6 Gait Level of Assist: 6 Gait Assistive Device: FWW Does the Pt use WC or Scooter?: No Stairs (FIM): 5 (household) # of Steps: 4 1 Step (curb) (QC): 6 4 Steps (QC): 6 12 Steps (QC): 88 PT Plan Treatment/Plan Treatment Plan: Continue Plan of Care Treatment Plan: Bed Mobility, Education, Functional Activity Zakiya, Functional Strength, Group Therapy, Gait, Safety, Therapeutic Exercise, Transfers Treatment Duration: Sep 20, 2018 Frequency: Modified Program (IRF) Estimated Hrs Per Day: 1.5 hours per day Patient and/or Family Agrees t: Yes Time/GCodes Time In: 800 Time Out: 900 Total Billed Treatment Time: 60 Total Billed Treatment 1 visit FA 20 min EX x 3 40 min DOMINIQUE JARRELL PT Sep 06, 2018 09:05
--- NOTE | 2018-09-06 10:33 | D/C HH Face to Face Order ---
D/C Face to Face Orders Instructions for Patient Via [facility], Patient Instructions/FollowUp: Dr. Nikki Horner Physician to follow Patient: Dr. Nikki Horner Discharge Diet for Home: Regular Diet Patient Data-Allergies,Ht & Wt Patient Allergies: Coded Allergies: cephalexin (Verified Allergy, Unknown, 03/21/16) levofloxacin (Verified Adverse Reaction, Unknown, 08/31/18) TENDONOPATHY Height (Feet): 5 Height (Inches): 5.00 Weight (Pounds): 150 Weight (Ounces): 9.0 Home Health Need/Face to Face Date of Face to Face: Sep 09, 2018 Clinical Findings: Generalized weakness and fatigue, Muscle weakness, Unsteady gait I have seen Pt [id number]: Yes Discharged To: Home Diagnosis/Conditions: Debility Patient is Homebound due to: Joselito fall risk due to instabilty, Muscle weakness , Pain w/ambulation Homebound Status Due to the above stated illness, injury or surgical procedure (medical condition or diagnosis) and associated clinical findings, the patient is homebound because of his/her inability to leave home except with aid of a supportive device and/or person AND leaving the home requires a considerable and taxing effort or is medically contraindicated. Pt req the following assistanc: Walker Home Health Nursing Orders Home Health Services Order: Nursing Services, Physical Therapy-Evaluate & Treat RN for assessment of lower body edema Therapy Orders Therapy Orders: Physical Therapy Therapy Specific Orders: Eval assistive deivces, Teach enviro modifications/ safety, Gait training, Increase strength/endurance, Restore ROM Certify Stmt I certify that this patient is under my care and that I, a nurse practitioner or a physician; a ophthalmology assistant working with me, had a face to face encounter that - meets the physician face to face encounter requirements with this patient as dated. I personally scribed for MARLO TRISTAN MD ([email or web address]) on 09/06/18 at 10:28. Electronically submitted by Isis De La Paz ([id number]). I personally scribed for MARLO TRISTAN MD) on 09/06/18 at 10:33. Electronically submitted by Isis De La Paz ([id number]). MARLO TRISTAN MD Sep 06, 2018 10:26
[2018-09-06] MEDS ORDERED: PREPARATION H OINTMENT 57 GR TUBE PR PRN (11:15)
--- NOTE | 2018-09-06 13:00 | Physical Therapy Daily Note ---
PT Daily Note-Current Subjective Agreeable to PT. No complaints. Mental Status Patient Orientation: Person, Place, Time, Situation Transfers Therapy Code Descriptions/Definitions Functional [place] Measure: 0=Not Assessed/NA 4=Minimal Assistance 1=Total Assistance 5=Supervision or Setup 2=Maximal Assistance 6=Modified [place] 3=Moderate Assistance 7=Complete [place] Therapy Quality Codes: 6 Independent with activity with or without an assistive device 5 Patient requires set up or clean up by helper. Patient completes activity by themselves 4 Supervision or touching assist (CGA). [place] provide cues , steadying assist 3 The helper provides less than half the effort to complete the activity 2 The helper provides more than half the effort to complete the activity 1 Dependent. The helper does all the effort to complete an activity 7 Patient refused to complete or attempt activity 9 The patient did not perform the activity before the current illness or injury 88 Not attempted due to Medical conditions or safety concerns Transfers (B, C, W/C) (FIM): 5 Supine to/from Sit: 5 Sit to/from Stand: 5 Weight Bearing Right Lower Extremity: Right Full Weight Bearing Left Lower Extremity: Left Full Weight Bearing Gait Training Does the Patient Walk?: Yes Gait (FIM): 2 Distance: 120 ft x 2 Gait Assistive Device: FWW Treatments Worked on functional gait and then addressed bed mobility and transfers Assessment Current Status: Good Progress PT Short Term Goals Short Term Goals Time Frame: Sep 10, 2018 Transfers (B,C,W/C) (FIM): 5 Gait (FIM): 5 PT Patient Coordinator Front Desk Goals Patient Coordinator Front Desk Goals PT Detention Goals Time Frame: Sep 20, 2018 Transfers (B,C,W/C) (FIM): 7 Sit to Lying (QC): 6 Lying-Sitting on Side/Bed(QC): 6 Sit to Stand (QC): 6 Rollin Roll Left to Right (QC): 6 Chair/Phq-do-Xyhgs Xfer(QC): 6 Car Transfer (QC): 6 Does the Patient Walk: Yes Gait (FIM): 6 Gait distance (FIM): 3=150 ft Walk 10 feet (QC): 6 Walk 10ft-Uneven Surface(QC): 6 Walk 50ft with 2 Turns (QC): 6 Walk 150 ft (QC): 6 Gait Level of Assist: 6 Gait Assistive Device: FWW Does the Pt use WC or Scooter?: No Stairs (FIM): 5 (household) # of Steps: 4 1 Step (curb) (QC): 6 4 Steps (QC): 6 12 Steps (QC): 88 PT Plan Problem List Problem List: Activity Tolerance, Functional Strength, Safety, Balance, Gait, Transfer, Bed Mobility Treatment/Plan Treatment Plan: Continue Plan of Care Treatment Plan: Bed Mobility, Education, Functional Activity Zakiya, Functional Strength, Group Therapy, Gait, Safety, Therapeutic Exercise, Transfers Treatment Duration: Sep 20, 2018 Frequency: Modified Program (IRF) Estimated Hrs Per Day: 1.5 hours per day Patient and/or Family Agrees t: Yes Safety Risks/Education Patient Education: Safety Issues Teaching Recipient: Patient Teaching Methods: Discussion Response to Teaching: Return Demonstration Time/GCodes Time In: 1115 Time Out: 1145 Total Billed Treatment Time: 30 Total Billed Treatment visit GT 30 KIP YUAN PT Sep 06, 2018 13:00
--- NOTE | 2018-09-06 14:40 | Occupational Ther Daily Note ---
OT Current Status-Daily Note Subjective Pt alert, lying in bed. Pt agrees to therapy. No c/o pain. Mental Status/Objective Patient Orientation: Person, Place, Time, Situation Therapy Code Descriptions/Definitions Functional [place] Measure: 0=Not Assessed/NA 4=Minimal Assistance 1=Total Assistance 5=Supervision or Setup 2=Maximal Assistance 6=Modified [place] 3=Moderate Assistance 7=Complete [place] Attachments: IV ADL-Treatment Therapy Code Descriptions/Definitions Functional [place] Measure: 0=Not Assessed/NA 4=Minimal Assistance 1=Total Assistance 5=Supervision or Setup 2=Maximal Assistance 6=Modified [place] 3=Moderate Assistance 7=Complete [place] Therapy Quality Codes: 6 Independent with activity with or without an assistive device 5 Patient requires set up or clean up by helper. Patient completes activity by themselves 4 Supervision or touching assist (CGA). [place] provide cues , steadying assist 3 The helper provides less than half the effort to complete the activity 2 The helper provides more than half the effort to complete the activity 1 Dependent. The helper does all the effort to complete an activity 7 Patient refused to complete or attempt activity 9 The patient did not perform the activity before the current illness or injury 88 Not attempted due to Medical conditions or safety concerns Toileting (FIM): 6 (Using FWW and grabbars, pt able to complete by self.) Toileting Hygiene (QC): 6 Toilet/Commode Transfer (FIM): 6 (Using grabbars and FWW, pt able to complete.) Toilet Transfer (QC): 6 Other Treatment Supine to sitting EOB mod I with HOB slightly raised and bedrails. Pt donned/ doffed slippers by self. Pt ambulated to [facility] area and sat at table. Completed UE tasks against gravity that incorporates fine motor coordination/ dexterity and visual perceptual skills. Pt demonstrated ability to complete and tolerated well. After therapy, pt sitting in [facility] area completing word search. Nrsg notified. All needs met. OT Short Term Goals Short Term Goals Time Frame: Sep 10, 2018 Bathing(FIM): 5 Upper Body Dressing(FIM): 5 Transfers (B,C,W/C) (FIM): 5 Toilet/Commode Transfer(FIM): 5 Additional Short Term Goals: 1-Demonstrate ADL Tasks, 2-Verbalize Understanding , 3-ImproveStrength/Zakiya 1=Demonstrate adherence to instructed precautions during ADL tasks. 2=Patient will verbalize/demonstrate understanding of assistive devices/ modifications for ADL. 3=Patient will improve strength/tolerance for activity to enable patient to perform ADL's. OT Mcc Goals Shipping Receiving Clerk Goals Time Frame: Sep 20, 2018 Eating (FIM): 6 Eating (QC): 6 Groomin Oral Hygiene (QC): 6 Bathing(FIM): 6 Shower/Bathe Self (QC): 6 Upper Body Dressing(FIM): 6 Upper Body Dressing (QC): 6 Lower Body Dressing(FIM): 6 Lower Body Dressing (QC): 6 On/Off Footwear (QC): 6 Toileting(FIM): 6 Toileting Hygiene (QC): 6 Toilet/Commode Transfer(FIM): 6 Toilet/Commode Transfer (QC): 6 Tub Transfer(FIM): 6 Shower Transfer(FIM): 6 Additional Goals: 1-Demonstrate ADL Tasks, 2-Verbalize Understanding, 3- ImproveStrength/Zakiya 1=Demonstrate adherence to instructed precautions during ADL tasks. 2=Patient will verbalize/demonstrate understanding of assistive devices/ modifications for ADL. 3=Patient will improve strength/tolerance for activity to enable patient to perform ADL's. OT Education/Plan Problem List/Assessment Pt would benefit from skilled OT to increase her independence in basic self care to allow her to safely return home Discharge Recommendations Plan/Recommendations: Continue POC Treatment Plan/Plan of Care Patient would benefit from OT for education, treatment and training to promote independence in ADL's, mobility, safety and/or upper extremity function for ADL' s. Plan of Care: ADL Retraining, Functional Mobility, Group Exercise/Act as Ind ( education, exercise, activity tolerance, functional activities, socialization), UE Funct Exercise/Act, UE Neuromus Re-Ed/Coord, OTHER (energy conservation education and practice) Treatment Duration: Sep 20, 2018 Frequency: Modified Program (IRF) Estimated Hrs Per Day: 1.5 hours per day Agreement: Yes Rehab Potential: Good Time/GCodes Start Time: 12:45 Stop Time: 13:30 Total Time Billed (hr/min): 45 Billed Treatment Time 1 visit-FA 2 (25 min) EX 1 (20 min) KIP LEONARD Sep 06, 2018 14:40
[2018-09-06 15:50] VITALS: BP 119/85
[2018-09-06] MEDS: POLYETHYLENE GLYCOL 17 GM (MIRALAX) PACK PO SCH (20:02)
[2018-09-07 05:27] VITALS: BP 130/58
[2018-09-07] MEDS: LEVOTHYROXINE 25 MCG (LEVOTHROID) TAB PO SCH (05:31)
[2018-09-07] MEDS: guaiFENesin (MUCINEX) 600 MG TAB PO SCH ×2 (07:47→20:27)
[2018-09-07] MEDS: APIXABAN 2.5 MG (ELIQUIS) TABLET PO SCH ×2 (07:47→20:27)
[2018-09-07] MEDS: PANTOPRAZOLE 40 MG (PROTONIX) TAB PO SCH (07:47)
[2018-09-07] MEDS: DILTIAZEM 120 MG (CARDIZEM CD) CAP PO SCH (07:47)
[2018-09-07] MEDS: DOCUSATE SODIUM 100 MG (COLACE) CAP PO SCH ×2 (07:47→20:27)
[2018-09-07] MEDS: AMIODARONE 200 MG (CORDARONE) TAB PO SCH (07:47)
--- NOTE | 2018-09-07 07:53 | Occupational Ther Daily Note ---
OT Current Status-Daily Note Subjective Pt alert, lying in bed. Pt agrees to therapy. No c/o pain at this time. Pt to go to dialysis today. Mental Status/Objective Patient Orientation: Person, Place, Time, Situation Therapy Code Descriptions/Definitions Functional [place] Measure: 0=Not Assessed/NA 4=Minimal Assistance 1=Total Assistance 5=Supervision or Setup 2=Maximal Assistance 6=Modified [place] 3=Moderate Assistance 7=Complete [place] Attachments: IV ADL-Treatment Therapy Code Descriptions/Definitions Functional [place] Measure: 0=Not Assessed/NA 4=Minimal Assistance 1=Total Assistance 5=Supervision or Setup 2=Maximal Assistance 6=Modified [place] 3=Moderate Assistance 7=Complete [place] Therapy Quality Codes: 6 Independent with activity with or without an assistive device 5 Patient requires set up or clean up by helper. Patient completes activity by themselves 4 Supervision or touching assist (CGA). [place] provide cues , steadying assist 3 The helper provides less than half the effort to complete the activity 2 The helper provides more than half the effort to complete the activity 1 Dependent. The helper does all the effort to complete an activity 7 Patient refused to complete or attempt activity 9 The patient did not perform the activity before the current illness or injury 88 Not attempted due to Medical conditions or safety concerns Eating (FIM): 7 (Own set up, uses regular utensils to eat.) Eating (QC): 6 Grooming (FIM): 6 (Sitting at sink, pt able to complete.) Oral Hygiene (QC): 6 Bathing (FIM): 6 (Using tub transfer bench, grabbars and hand held shower pt able to complete by self.) Bathing Location: L Arm, R Arm, L Upper Leg, R Upper Leg, L Lower Leg ( including foot), R Lower Leg (including foot), Chest, Abdomen, Buttocks, Perineal Area Shower/Bathe Self (QC): 6 Upper Body (FIM): 6 (Retrieves clothing with FWW. Dresses by self.) Upper Body Dressing (QC): 6 Lower Body Dressing (FIM): 6 (Retrieves clothing with FWW. Dresses by self.) Lower Body Dressing (QC): 6 On/Off Footwear (QC): 6 Toileting (FIM): 6 (Using grabbars and FWW, pt able to complete.) Toileting Hygiene (QC): 6 Transfers (B, C, W/C) (FIM): 6 Toilet/Commode Transfer (FIM): 6 (Using grabbars and FWW, pt able to complete) Toilet Transfer (QC): 6 Tub Transfer(FIM): 6 (Using grabbars, tub transfer bench and FWW.) Other Treatment Pt completed UE exercises with light resistance theraband to increase UE strength for daily functional tasks. Theraband and therapy sponge left in room for pt's HEP, instructed pt to use throughout the day. After therapy, pt sitting in recliner with call light/phone in reach. OT Short Term Goals Short Term Goals Time Frame: Sep 10, 2018 Bathing(FIM): 5 Upper Body Dressing(FIM): 5 Transfers (B,C,W/C) (FIM): 5 Toilet/Commode Transfer(FIM): 5 Additional Short Term Goals: 1-Demonstrate ADL Tasks, 2-Verbalize Understanding , 3-ImproveStrength/Zakiya 1=Demonstrate adherence to instructed precautions during ADL tasks. 2=Patient will verbalize/demonstrate understanding of assistive devices/ modifications for ADL. 3=Patient will improve strength/tolerance for activity to enable patient to perform ADL's. OT Agricultural Inspector Goals Usp Goals Time Frame: Sep 20, 2018 Eating (FIM): 6 (met) Eating (QC): 6 (met) Groomin (met) Oral Hygiene (QC): 6 (met) Bathing(FIM): 6 (met) Shower/Bathe Self (QC): 6 (met) Upper Body Dressing(FIM): 6 (mt) Upper Body Dressing (QC): 6 (met) Lower Body Dressing(FIM): 6 (met) Lower Body Dressing (QC): 6 (met) On/Off Footwear (QC): 6 (met) Toileting(FIM): 6 (met) Toileting Hygiene (QC): 6 (met) Toilet/Commode Transfer(FIM): 6 (met) Toilet/Commode Transfer (QC): 6 (met) Tub Transfer(FIM): 6 (met) Shower Transfer(FIM): 6 (met-pt transferred into tub shower) Additional Goals: 1-Demonstrate ADL Tasks, 2-Verbalize Understanding, 3- ImproveStrength/Zakiya 1=Demonstrate adherence to instructed precautions during ADL tasks. 2=Patient will verbalize/demonstrate understanding of assistive devices/ modifications for ADL. 3=Patient will improve strength/tolerance for activity to enable patient to perform ADL's. OT Education/Plan Problem List/Assessment Pt would benefit from skilled OT to increase her independence in basic self care to allow her to safely return home Discharge Recommendations Plan/Recommendations: Continue POC Treatment Plan/Plan of Care Patient would benefit from OT for education, treatment and training to promote independence in ADL's, mobility, safety and/or upper extremity function for ADL' s. Plan of Care: ADL Retraining, Functional Mobility, Group Exercise/Act as Ind ( education, exercise, activity tolerance, functional activities, socialization), UE Funct Exercise/Act, UE Neuromus Re-Ed/Coord, OTHER (energy conservation education and practice) Treatment Duration: Sep 20, 2018 Frequency: Modified Program (IRF) Estimated Hrs Per Day: 1.5 hours per day Agreement: Yes Rehab Potential: Good Time/GCodes Start Time: 06:30 Stop Time: 08:00 Total Time Billed (hr/min): 90 Billed Treatment Time 1 visit-ADL 5 (75 min) EX 1 (15 min) KIP LEONARD Sep 07, 2018 07:53
--- NOTE | 2018-09-07 09:37 | Physical Therapy Daily Note ---
PT Daily Note-Current Subjective Patient just complete with OT and agrees to PT. Pain Numeric Pain Scale: 0-No Pain Location: No Pain Reported Mental Status Patient Orientation: Normal For Age Transfers Therapy Code Descriptions/Definitions Functional [place] Measure: 0=Not Assessed/NA 4=Minimal Assistance 1=Total Assistance 5=Supervision or Setup 2=Maximal Assistance 6=Modified [place] 3=Moderate Assistance 7=Complete [place] Therapy Quality Codes: 6 Independent with activity with or without an assistive device 5 Patient requires set up or clean up by helper. Patient completes activity by themselves 4 Supervision or touching assist (CGA). [place] provide cues , steadying assist 3 The helper provides less than half the effort to complete the activity 2 The helper provides more than half the effort to complete the activity 1 Dependent. The helper does all the effort to complete an activity 7 Patient refused to complete or attempt activity 9 The patient did not perform the activity before the current illness or injury 88 Not attempted due to Medical conditions or safety concerns Transfers (B, C, W/C) (FIM): 6 Scootin Rollin Roll Left to Right (QC): 6 Supine to/from Sit: 6 Sit to/from Stand: 6 Sit to Lying (QC): 6 Sit to Stand (QC): 6 Chair/Iyq-ko-Irckf Xfer(QC): 6 Bed to/from Chair: 6 Car Transfer (QC): 6 Weight Bearing Right Lower Extremity: Right Full Weight Bearing Left Lower Extremity: Left Full Weight Bearing Gait Training Does the Patient Walk?: Yes Gait (FIM): 6 Distance (FIM): 3=150 ft Distance: 150' x 10 sets Walk 10 feet (QC): 6 Walk 50 ft with 2 Turns(QC): 6 Walk 150 ft (QC): 6 Walking 10ft/uneven surface-QC: 6 Gait Level of Assist: 6 Gait Assistive Device: FWW slow, steady, functional gait sequence with kyphotic posture and sitting recovery periods due to fatigue Stair Training Stair Training: Handrails/: 1 handrail Stairs (FIM): 5 #of Steps: 8 (household) 1 Step (curb) (QC): 5 4 Steps (QC): 5 12 Steps (QC): 9 Stairs: Pattern: Step to Level of Assist: 5 Balance Picking up an Object (QC): 6 Exercises Supine Ex: Ankle pumps, Quad Set, Heel Slides, Straight leg raise, Hip abd/add Supine Reps: 10 (3 sets with recovery period due to fatigue) Seated Therapy Exercises: Ankle pumps, Long arc quads, Hip flexion Seated Reps: 20 (3 sets with recovery period between sets due to fatigue) Standing: Heel/toe raises, 3 way Ex=Flex, Abd, Ext, Marching Standing Reps: 20 NuStep Minutes: 12 NuStep Workload: 5 (to increase strength and mobility) Assessment Patient is currently at [facility] with all gross motor skills and has attained all functional goals and will dismiss to home on 09/09. Patient is highly motivated with progress. PT Short Term Goals Short Term Goals Time Frame: Sep 10, 2018 Transfers (B,C,W/C) (FIM): 5 Gait (FIM): 5 PT Skilled Nursing Goals Skilled Nursing Goals PT Skilled Nursing Goals Time Frame: Sep 20, 2018 Transfers (B,C,W/C) (FIM): 7 Sit to Lying (QC): 6 Lying-Sitting on Side/Bed(QC): 6 Sit to Stand (QC): 6 Rollin Roll Left to Right (QC): 6 Chair/Bzl-ph-Cfxoe Xfer(QC): 6 Car Transfer (QC): 6 Does the Patient Walk: Yes Gait (FIM): 6 Gait distance (FIM): 3=150 ft Walk 10 feet (QC): 6 Walk 10ft-Uneven Surface(QC): 6 Walk 50ft with 2 Turns (QC): 6 Walk 150 ft (QC): 6 Gait Level of Assist: 6 Gait Assistive Device: FWW Does the Pt use WC or Scooter?: No Stairs (FIM): 5 (household) # of Steps: 4 1 Step (curb) (QC): 6 4 Steps (QC): 6 12 Steps (QC): 88 PT Plan Treatment/Plan Treatment Plan: Continue Plan of Care Treatment Plan: Bed Mobility, Education, Functional Activity Zakiya, Functional Strength, Group Therapy, Gait, Safety, Therapeutic Exercise, Transfers Treatment Duration: Sep 20, 2018 Frequency: Modified Program (IRF) Estimated Hrs Per Day: 1.5 hours per day Patient and/or Family Agrees t: Yes Time/GCodes Time In: 805 Time Out: 935 Total Billed Treatment Time: 90 Total Billed Treatment 1 visit FA x 3 45 min EX x 3 45 min DOMINIQUE JARRELL PT Sep 07, 2018 09:37
[2018-09-07 18:00] VITALS: BP 150/67
[2018-09-07] MEDS: POLYETHYLENE GLYCOL 17 GM (MIRALAX) PACK PO SCH (20:26)
[2018-09-07] MEDS: BENZONATATE 100 MG (TESSALON) CAPSULE PO PRN (21:39)
[2018-09-08 05:25] VITALS: BP 138/53
[2018-09-08] MEDS: KCL 20 MEQ TAB (K-DUR) PO SCH (06:39)
[2018-09-08] MEDS: LEVOTHYROXINE 25 MCG (LEVOTHROID) TAB PO SCH (06:39)
[2018-09-08] MEDS: BENZONATATE 100 MG (TESSALON) CAPSULE PO PRN (08:34)
[2018-09-08] MEDS: DOCUSATE SODIUM 100 MG (COLACE) CAP PO SCH ×2 (08:34→20:25)
[2018-09-08] MEDS: guaiFENesin (MUCINEX) 600 MG TAB PO SCH ×2 (08:34→20:24)
[2018-09-08] MEDS: APIXABAN 2.5 MG (ELIQUIS) TABLET PO SCH ×2 (08:34→20:24)
[2018-09-08] MEDS: AMIODARONE 200 MG (CORDARONE) TAB PO SCH (08:34)
[2018-09-08] MEDS: FUROSEMIDE 40 MG (LASIX) TAB PO SCH (08:34)
[2018-09-08] MEDS: PANTOPRAZOLE 40 MG (PROTONIX) TAB PO SCH (08:34)
[2018-09-08] MEDS: DILTIAZEM 120 MG (CARDIZEM CD) CAP PO SCH (08:34)
--- NOTE | 2018-09-08 12:37 | Therapy Group Daily Note ---
Therapy Daily Group Note Patient Education Topic Home Safety, Fall Prevention, Exercises Exercises LE Seated Exercise, ROM, Stretching, UE Exercise Other/Notes Group activity to work on social interaction and facilitate cognitive activity. Performed seated exercises for UE and LE strength and ROM. Education on fall prevention with emphasis on home safety. Educated patients on the physiology of pain and mechanisms to cope. Also discussed the importance of continuing to work on graded exercise despite pain in order to prevent loss of strength and function. Worked on transfers and mobility too/from dining tables. Start Time: 11:00 Stop Time: 12:00 Total Billed Treatment Time: 60 Total Billed Treatment visit, 60 min JOAQUINA DEL ROSARIO PT Sep 08, 2018 12:37
--- NOTE | 2018-09-08 12:45 | Progress Note-Hospitalist ---
Subjective HPI/CC On Admission Date Seen by Provider: Sep 08, 2018 Time Seen by Provider: 12:15 Subjective/Events-last exam Patient to go home tomorrow Patient appears to be frail Long-term prognosis guarded considering her debilitated state and advanced age and dialysis Patient appears to be sleeping well Review of Systems General: Fatigue Objective Exam Vital Signs Vital Signs Date Time Temp Pulse Resp B/P (MAP) Pulse Ox O2 Delivery O2 Flow Rate FiO2 09/08/18 09:00 97 Room Air 09/08/18 05:25 97.0 68 20 138/53 (81) Capillary Refill : General Appearance: No Apparent Distress, WD/WN, Chronically ill, Thin Respiratory: Chest Non Tender, Lungs Clear, Normal Breath Sounds, No Accessory Muscle Use, No Respiratory Distress Cardiovascular: Regular Rate, Rhythm, No Edema, No Gallop, No JVD, No Murmur, Normal Peripheral Pulses Neurologic/Psychiatric: Alert, Oriented x3, No Motor/Sensory Deficits, Normal Mood/Affect Results/Procedures Lab Patient resulted labs reviewed. Assessment/Plan Assessment and Plan Assess & Plan/Chief Complaint Assessment: Debility End-stage renal disease on dialysis Frail status Advanced age Plan: Discharge home tomorrow Reviewed meds Diagnosis/Problems Diagnosis/Problems (1) Debility Status: Acute (2) End stage renal disease on dialysis Status: Chronic (3) Frail elderly Status: Chronic (4) Advanced age Status: Chronic Clinical Quality Measures DVT/VTE Risk/Contraindication: Risk Factor Score Per Nursin RFS Level Per Nursing on Admit: 3=High RUDOLPH WALTER DO Sep 08, 2018 12:45
[2018-09-08 16:34] VITALS: BP 124/65
[2018-09-08] MEDS: POLYETHYLENE GLYCOL 17 GM (MIRALAX) PACK PO SCH (20:25)
[2018-09-09 05:19] VITALS: BP 145/69
[2018-09-09] MEDS: LEVOTHYROXINE 25 MCG (LEVOTHROID) TAB PO SCH (06:02)
[2018-09-09] MEDS: KCL 20 MEQ TAB (K-DUR) PO SCH (06:02)
[2018-09-09] MEDS: FUROSEMIDE 40 MG (LASIX) TAB PO SCH (08:07)
[2018-09-09] MEDS: APIXABAN 2.5 MG (ELIQUIS) TABLET PO SCH (08:07)
[2018-09-09] MEDS: AMIODARONE 200 MG (CORDARONE) TAB PO SCH (08:07)
[2018-09-09] MEDS: guaiFENesin (MUCINEX) 600 MG TAB PO SCH (08:07)
[2018-09-09] MEDS: PANTOPRAZOLE 40 MG (PROTONIX) TAB PO SCH (08:07)
[2018-09-09] MEDS: DILTIAZEM 120 MG (CARDIZEM CD) CAP PO SCH (08:08)
[2018-09-09] MEDS: DOCUSATE SODIUM 100 MG (COLACE) CAP PO SCH (08:08)
[2018-09-09 11:07] VITALS: BP 145/69
--- NOTE | 2018-09-12 16:04 | Therapy Team Discharge Summary ---
Therapy Discharge Summary Discharge Recommendations Date of Discharge Sep 09, 2018 at 09:50 Physical Therapy This patient was transferred to ARU post acute hospital stay due to debility and decreased ability to care for herself at home. Prior to her admit, she was indep to mod indep with mobility. Upon admission to this unit,she was mod assist with transfers and walked only short distances with the FWW with assist. She was unable to attempt the stairs. Treatment focused on strength, transfer training, gait progression and functional activity tolerance with education on safety. She made excellent progress. At discharge, she was mod indep with transfers and giat and able to go up/down 4 steps mod indep. She is discharging home with family support. All goals met. DC PT. Occupational Therapy Decreased Activ Tolerance, Decreased UE Strength, Dependent Transfers, Impaired Funct Balance, Impaired Self-Care Skills PT Residential Goals Residential Goals PT Resource Efficiency Manager Goals Time Frame: Sep 20, 2018 Transfers (B,C,W/C) (FIM): 7 (scored a 6) Roll Left to Right (QC): 6 Sit to Lying (QC): 6 Lying-Sitting on Side/Bed(QC): 6 Sit to Stand (QC): 6 Chair/Asf-ag-Lcmax Xfer(QC): 6 Car Transfer (QC): 6 Does the Patient Walk: Yes Gait (FIM): 6 (met) Gait distance (FIM): 3=150 ft Walk 10 feet (QC): 6 Walk 10ft-Uneven Surface(QC): 6 Walk 50ft with 2 Turns (QC): 6 Walk 150 ft (QC): 6 Gait Level of Assist: 6 Gait Assistive Device: FWW Does the Pt use WC or Scooter?: No Stairs (FIM): 5 (household) # of Steps: 4 1 Step (curb) (QC): 6 4 Steps (QC): 6 12 Steps (QC): 88 all goals met to a satisfactory level; pt is indep to mod indep with all mobiltiy. OT Residential Goals Residential Goals Time Frame: Sep 20, 2018 Eating (FIM): 6 (met) Eating (QC): 6 (met) Oral Hygiene (QC): 6 (met) Grooming(FIM): 6 (met) Bathing(FIM): 6 (met) Shower/Bathe Self (QC): 6 (met) Upper Body Dressing(FIM): 6 (mt) Upper Body Dressing (QC): 6 (met) Lower Body Dressing(FIM): 6 (met) Lower Body Dressing (QC): 6 (met) On/Off Footwear (QC): 6 (met) Toileting(FIM): 6 (met) Toileting Hygiene (QC): 6 (met) Toilet/Commode Transfer(FIM): 6 (met) Toilet/Commode Transfer (QC): 6 (met) Tub Transfer(FIM): 6 (met) Shower Transfer(FIM): 6 (met-pt transferred into tub shower) Additional Goals: 1-Demonstrate ADL Tasks, 2-Verbalize Understanding, 3- ImproveStrength/Zakiya 1=Demonstrate adherence to instructed precautions during ADL tasks. 2=Patient will verbalize/demonstrate understanding of assistive devices/ modifications for ADL. 3=Patient will improve strength/tolerance for activity to enable patient to perform ADL's. Speech Residential Goals Resource Efficiency Manager Goals Patient will improve safety awareness and independence for safe return home. KIP YUAN PT Sep 12, 2018 16:04
--- NOTE | 2018-09-12 16:52 | Therapy Team Discharge Summary ---
Therapy Discharge Summary Discharge Recommendations Date of Discharge Sep 09, 2018 at 09:50 Occupational Therapy Pt was seen for skilled OT to increase her independence in basic slef care to allow her to safely return home. On admission she needed setup for grooming and bathing, min assist upper body dressing, SBA lower body dressing mod assist toileting and toilet transfers. By discharge she was independent with eating and modified independent with all other basic ADLs. She used transfer tub bench , BSC over toilet, FWW, grab bars, hand held shower. See tx plan for goals met. Home health recommended. DC OT. Decreased Activ Tolerance, Decreased UE Strength, Dependent Transfers, Impaired Funct Balance, Impaired Self-Care Skills PT Advertising Assistant Goals Halfway Goals PT Halfway Goals Time Frame: Sep 20, 2018 Transfers (B,C,W/C) (FIM): 7 (scored a 6) Roll Left to Right (QC): 6 Sit to Lying (QC): 6 Lying-Sitting on Side/Bed(QC): 6 Sit to Stand (QC): 6 Chair/Jye-ml-Pizzw Xfer(QC): 6 Car Transfer (QC): 6 Does the Patient Walk: Yes Gait (FIM): 6 (met) Gait distance (FIM): 3=150 ft Walk 10 feet (QC): 6 Walk 10ft-Uneven Surface(QC): 6 Walk 50ft with 2 Turns (QC): 6 Walk 150 ft (QC): 6 Gait Level of Assist: 6 Gait Assistive Device: FWW Does the Pt use WC or Scooter?: No Stairs (FIM): 5 (household) # of Steps: 4 1 Step (curb) (QC): 6 4 Steps (QC): 6 12 Steps (QC): 88 OT Halfway Goals Halfway Goals Time Frame: Sep 20, 2018 Eating (FIM): 6 (met) Eating (QC): 6 (met) Oral Hygiene (QC): 6 (met) Grooming(FIM): 6 (met) Bathing(FIM): 6 (met) Shower/Bathe Self (QC): 6 (met) Upper Body Dressing(FIM): 6 (mt) Upper Body Dressing (QC): 6 (met) Lower Body Dressing(FIM): 6 (met) Lower Body Dressing (QC): 6 (met) On/Off Footwear (QC): 6 (met) Toileting(FIM): 6 (met) Toileting Hygiene (QC): 6 (met) Toilet/Commode Transfer(FIM): 6 (met) Toilet/Commode Transfer (QC): 6 (met) Tub Transfer(FIM): 6 (met) Shower Transfer(FIM): 6 (met-pt transferred into tub shower) Additional Goals: 1-Demonstrate ADL Tasks, 2-Verbalize Understanding, 3- ImproveStrength/Zakiya 1=Demonstrate adherence to instructed precautions during ADL tasks. 2=Patient will verbalize/demonstrate understanding of assistive devices/ modifications for ADL. 3=Patient will improve strength/tolerance for activity to enable patient to perform ADL's. Speech Advertising Assistant Goals Advertising Assistant Goals Patient will improve safety awareness and independence for safe return home. MAJO CENTENO OT Sep 12, 2018 16:52
== END 2018-09-09 09:50 | disposition home health service (06) | DRG 91 ==
PROVIDERS: ADMIT Physical Medicine & Rehabilitation; ATTEND Physical Medicine & Rehabilitation
DX: R29.6 Repeated falls (principal); M79.661 Pain in right lower leg; M79.89 Other specified soft tissue disorders; I12.0 Hypertensive chronic kidney disease with stage 5 chronic kidney disease or end stage renal disease; N18.6 End stage renal disease; Z99.2 Dependence on renal dialysis; I48.91 Unspecified atrial fibrillation; M19.90 Unspecified osteoarthritis, unspecified site; K21.9 Gastro-esophageal reflux disease without esophagitis; E03.9 Hypothyroidism, unspecified; K59.09 Other constipation

== ENCOUNTER 2022-11-20 11:05 | Emergency (ER) | payer MEDICARE ==
[~2022-11-20] VITALS: Ht 165 cm; Wt 65.0 kg
[~2022-11-20 11:05] MED LIST changes: -AMIO200T4 PO; +AMIO200T65 PO; -DILT120C63 PO; +DILT120C88 PO; +LEVO-55 PO; -LEVO500T80 PO; -PANT40TA3 PO; +PANT40TA52 PO; -TRAM50TA2 PO; +TRM50T PO
--- NOTE | 2022-11-20 11:41 | ED Lower Extremity ---
General Chief Complaint: Lower Extremity Stated Complaint: KNEE PAIN History of Present Illness Date Seen by Provider: Nov 20, 2022 Time Seen by Provider: 11:15 Initial Comments 87 year old female reports right knee pain and LOM since 11/18/2022. She has longstanding arthritis in both knees but is not a candidate for TKR. She had steroid injection 18-[address] Schaffer in [place] with some relief, but did not return for repeat injections. She denies falls or injuries to right knee, she ambulates with walker at all times. She lives alone and family takes her to Dialysis 3 times a week. Port to right chest wall. She does not take arthritis medications or anticoagulants. She took Tylenol this morning for pain. Current medications include Colace, amiodarone, Protonix, Lasix, diltiazem, Synthroid, calcium, Mucinex, and senna. Onset: other (11/18/2022) Pain/Injury Location: right knee Method of Injury: unknown Modifying Factors: Improves With Rest Allergies and Home Medications Allergies Coded Allergies: cephalexin (Verified Allergy, Unknown, 03/21/16) levofloxacin (Verified Adverse Reaction, Unknown, 08/31/18) TENDONOPATHY Patient Home Medication List Home Medication List Reviewed: Yes Amiodarone HCl (Amiodarone HCl) 200 Mg Tablet, 200 MG PO DAILY, (Reported) Entered as Reported by: ROSENDA MENDES on 08/31/181806 Apixaban (Eliquis) 2.5 Mg Tablet, 2.5 MG PO BID, (Reported) Entered as Reported by: ROSENDA MENDES on 08/31/181806 Benzonatate (Benzonatate) 100 Mg Capsule, 100 MG PO TID PRN for COUGH Prescribed by: TORRES GUIDO on 09/01/18911 Celecoxib (Celebrex) 200 Mg Capsule, 200 MG PO DAILY Prescribed by: MAKENZIE MONK on 11/20/22 1229 Diltiazem HCl (Cartia Xt) 120 Mg Cap.er.24h, 120 MG PO DAILY Prescribed by: TORRES GUIDO on 09/01/18911 Docusate Sodium (Colace) 100 Mg Capsule, 100 MG PO BID Prescribed by: TORRES GUIDO on 09/01/18911 Furosemide (Furosemide) 40 Mg Tablet, 40 MG PO DAILY, (Reported) Entered as Reported by: BRYON NARANJO on 07/17/17630 Guaifenesin (Guaifenesin) 1,200 Mg Tab.er.12h, 1,200 MG PO, (Reported) Entered as Reported by: ROSENDA MENDES on 08/31/181806 Levothyroxine Sodium (Levothyroxine Sodium) 25 Mcg Tablet, 37.5 MCG PO DAILY, (Reported) Entered as Reported by: BRYON NARANJO on 07/17/17630 Pantoprazole Sodium (Pantoprazole Sodium) 40 Mg Tablet.dr, 40 MG PO DAILY Prescribed by: TORRES GUIDO on 09/01/18911 Potassium Chloride (Potassium Chloride) 20 Meq Tablet.er, 20 MEQ PO DAILY Prescribed by: TORRES GUIDO on 09/01/18911 Review of Systems Constitutional: no symptoms reported, see HPI Musculoskeletal: see HPI, joint pain (right knee), joint swelling All Other Systems Reviewed Negative Unless Noted: Yes Past Ajyaazs-Dfvebr-Fjjyet Hx Patient Social History Tobacco Use?: No Use of E-Cig and/or Vaping dev: No Substance use?: No Alcohol Use?: No Pt feels they are or have been: No Seasonal Allergies Seasonal Allergies: Yes Past Medical History Surgery/Hospitalization HX: HTN, CKD Surgeries: Yes Dialysis, Eye Surgery, Gallbladder, Neurological, Vascular Surgery Respiratory: Yes (FLUID OVERLOAD; BRONCHITIS) Currently Using CPAP: No Currently Using BIPAP: No Cardiac: Yes (FLUID OVERLOAD; INTERMITTENT ATRIAL FIBRILLATION; CEREBRAL ANEURYSM ) Aneurysm, Atrial Fibrillation, Chronic Edema/Swelling, High Cholesterol, Hypertension Neurological: Yes (S/P REPAIR OF CEREBRAL ANEURYSM) 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 Physical Exam Vital Signs Vital Signs - First Documented 11/20/22 11:31 Temp 36.6 Pulse 67 Resp 14 B/P (MAP) 180/76 (110) Pulse Ox 98 O2 Delivery Room Air Capillary Refill : Height, Weight, BMI Height: 5'5.00" Weight: 150lbs. 9.0oz. [id number]; 25.1 BMI Method:Stated General Appearance: WD/WN, mild distress (secondary to pain) Cardiovascular: normal peripheral pulses, regular rate, rhythm, other (1+ edema bilat LEs) Respiratory: chest non-tender, lungs clear, normal breath sounds Knees: left knee normal range of motion; right knee bone tenderness, right knee joint effusion, right knee pain, right knee other (LOM, full ext, flex to 45 degrees. ) Neurologic/Psychiatric: no motor/sensory deficits, alert, normal mood/affect, oriented x 3 Skin: normal color, warm/dry Progress/Results/Core Measures Results/Orders My Orders Orders - MAKENZIE MONK Knee, Right, 3 Views (11/20/22 11:29) Celecoxib Capsule (Celebrex Capsule) (11/20/22 12:29) Vital Signs/I&O 11/20/22 11:31 Temp 36.6 Pulse 67 Resp 14 B/P (MAP) 180/76 (110) Pulse Ox 98 O2 Delivery Room Air Progress Progress Note : Time: 11:15 Progress Note patient assessed, will obtain x-ray. 1145 discussed x-rays with patient and daughter. Explained significant lateral joint arthritis with bone on bone changes. Options discussed, she would like to try Celebrex and will follow up with PCP or ortho for knee injection. Discharge instructions and return precautions reviewed. Diagnostic Imaging Diagonstic Imaging: Xray Plain Films/CT/US/NM/MRI: knee Comments NAME: WI[facility] VANEGAS [facility] REC#: [id number] PT STATUS: REG ER : 1935 PHYSICIAN: MAKENZIE MONK ADMIT DATE: 11/20/22/ER Signed Date of Exam:11/20/22 KNEE, RIGHT, 3 VIEWS EXAMINATION: Right knee radiograph. EXAM DATE: 11/20/2022, 11:42 a.m. COMPARISON: 04/17/2016. HISTORY: Knee pain. TECHNIQUE: Three views. FINDINGS: There is no acute fracture, dislocation, or destructive osseous process. There is moderate lateral compartment and mild medial compartment joint space narrowing. There are prominent osteophytes, greatest along the lateral knee. There is mild soft tissue swelling about the right knee. IMPRESSION: 1. Degenerative changes of the right knee without acute osseous abnormality. Dictated by: Dictated on workstation # [id number] Dict: 11/20/22 1147 Trans: 11/20/22 1202 [id number] Interpreted by: BRYON RUBIO DO Electronically signed by: BRYON RUBIO DO 11/20/22 1202 Reviewed: Reviewed by Me Departure Impression Primary Impression: Knee pain Qualified Codes: M25.561 - Pain in right knee Additional Impression: Degenerative arthritis of right knee Qualified Codes: M17.11 - Unilateral primary osteoarthritis, right knee Disposition: HOME, SELF-CARE Condition: Stable Departure-Patient Inst. Decision time for Depature: 11:55 Referrals: DES MARINA MD (PCP/Family) Primary Care Physician Patient Instructions: Chronic Knee Pain (DC), Osteoarthritis (DC) Add. Discharge Instructions: Alternate heat and ice to right knee. Use walker at all times. Joshua wrap to knee, as needed. Follow up with your primary care or orthopedics to consider steroid injection. Use Tylenol 650 mg ever 6 hours for knee pain. Take Celebrex, as prescribed. Return to the emergency dept for new, urgent healthcare. All discharge instructions reviewed with patient and/or family. Voiced understanding. Scripts Celecoxib (Celebrex) 200 Mg Capsule 200 MG PO DAILY, #30 CAP 1 Refill Prov: MAKENZIE MONK 11/20/22 MAKENZIE MONK Nov 20, 2022 11:41
--- NOTE | 2022-11-20 11:55 | Diagnostic Imaging Report ---
EXAMINATION: Right knee radiograph. EXAM DATE: 11/20/2022, 11:42 a.m. COMPARISON: 04/17/2016. HISTORY: Knee pain. TECHNIQUE: Three views. FINDINGS: There is no acute fracture, dislocation, or destructive osseous process. There is moderate lateral compartment and mild medial compartment joint space narrowing. There are prominent osteophytes, greatest along the lateral knee. There is mild soft tissue swelling about the right knee. IMPRESSION: 1. Degenerative changes of the right knee without acute osseous abnormality. Dictated by: Dictated on workstation # [id number]
[2022-11-20] MEDS ORDERED: CELECOXIB 100 MG (CeleBREX) CAP PO STA (12:29)
[2022-11-20] MEDS ORDERED: CELE200C PO (12:29)
[2022-11-20 12:59] VITALS: BP 160/89
== END 2022-11-20 12:59 | disposition home or self-care (01) ==
LOC: EDUNIT# 11:05 → ER 11:06
DX: M17.11 Unilateral primary osteoarthritis, right knee (principal); I12.0 Hypertensive chronic kidney disease with stage 5 chronic kidney disease or end stage renal disease; N18.6 End stage renal disease; Z99.2 Dependence on renal dialysis; Z79.899 Other long term (current) drug therapy
CPT/HCPCS: 73562

== ENCOUNTER 2022-12-20 19:50 | Emergency (ER) | payer MEDICARE ==
[~2022-12-20] VITALS: Ht 160 cm; Wt 57.5 kg
[~2022-12-20 19:50] MED LIST changes: +CELE200C PO
--- NOTE | 2022-12-20 20:16 | ED GI ---
General Chief Complaint: Abdominal/GI Problems Stated Complaint: CONSTAPATION Nursing Triage Note: PT TO RM 3 VIA WC ALONGSIDE DAUGHTER. 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 DAUGHTER REPORTS PT HAS BEEN CONSTIPATED X2-3 DAYS, HAS TRIED MIRALAX, FLEET ENEMA AT [id number] THIS PM W NO BM AFTER. DAUGHTER REPORTS PT HAS DENIED PAIN, PT ON DIALYSIS 3X/WK. PT A&O. Source of Information: Other (DAUGHTER GIVES ALL INFORMATION) Exam Limitations: Other (PT IS HARD OF HEARING AND DOES NOT TALK TO OR ANSWER ANY QUESTIONS FROM ER STAFF, BUT DOES TALK TO AND ANSWERS QUESTIONS FROM DAUGHTER. ) History of Present Illness Date Seen by Provider: Dec 20, 2022 Time Seen by Provider: 20:00 Initial Comments PT ARRIVES VIA POV FROM HOME WITH DAUGHTER Allergies and Home Medications Allergies Coded Allergies: cephalexin (Verified Allergy, Unknown, 03/21/16) levofloxacin (Verified Adverse Reaction, Unknown, 08/31/18) TENDONOPATHY Patient Home Medication List Amiodarone HCl (Amiodarone HCl) 200 Mg Tablet, 200 MG PO DAILY, (Reported) Entered as Reported by: ROSENDA MENDES on 08/31/181806 Apixaban (Eliquis) 2.5 Mg Tablet, 2.5 MG PO BID, (Reported) Entered as Reported by: ROSENDA MENDES on 08/31/181806 Benzonatate (Benzonatate) 100 Mg Capsule, 100 MG PO TID PRN for COUGH Prescribed by: TORRES GUIDO on 09/01/18 09 Celecoxib (Celebrex) 200 Mg Capsule, 200 MG PO DAILY Prescribed by: MAKENZIE MONK on 11/20/22 1229 Diltiazem HCl (Cartia Xt) 120 Mg Cap.er.24h, 120 MG PO DAILY Prescribed by: TORRES GUIDO on 09/01/18 0912 Docusate Sodium (Colace) 100 Mg Capsule, 100 MG PO BID Prescribed by: TORRES GUIDO on 09/01/18 09 Furosemide (Furosemide) 40 Mg Tablet, 40 MG PO DAILY, (Reported) Entered as Reported by: BRYON NARANJO on 07/17/17 0631 Guaifenesin (Guaifenesin) 1,200 Mg Tab.er.12h, 1,200 MG PO, (Reported) Entered as Reported by: ROSENDA MENDES on 08/31/18 180 Levothyroxine Sodium (Levothyroxine Sodium) 25 Mcg Tablet, 37.5 MCG PO DAILY, (Reported) Entered as Reported by: BRYON NARANJO on 07/17/17 0631 Pantoprazole Sodium (Pantoprazole Sodium) 40 Mg Tablet.dr, 40 MG PO DAILY Prescribed by: TORRES GUIDO on 09/01/18 09 Potassium Chloride (Potassium Chloride) 20 Meq Tablet.er, 20 MEQ PO DAILY Prescribed by: TORRES GUIDO on 09/01/18 0912 Past Xihemyo-Vkacrb-Baztdc Hx Patient Social History Tobacco Use?: No Use of E-Cig and/or Vaping dev: No Substance use?: No Alcohol Use?: No Immunizations Up To Date Influenza Vaccine Up-to-Date: Yes; Up-to-Date First/Initial COVID19 Vaccinat: 2020 Second COVID19 Vaccination Mehul: 2020 Third COVID19 Vaccination Date: 2020 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 Trend X4 Seasonal Allergies Seasonal Allergies: Yes Past Medical History Surgery/Hospitalization HX: HTN, CKD Surgeries: Yes Dialysis, Eye Surgery, Gallbladder, Neurological, Vascular Surgery Respiratory: Yes (FLUID OVERLOAD; BRONCHITIS) Currently Using CPAP: No Currently Using BIPAP: No Cardiac: Yes (FLUID OVERLOAD; INTERMITTENT ATRIAL FIBRILLATION; CEREBRAL ANEURYSM ) Aneurysm, Atrial Fibrillation, Chronic Edema/Swelling, High Cholesterol, Hypertension Neurological: Yes (S/P REPAIR OF CEREBRAL ANEURYSM) 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 Physical Exam Vital Signs Vital Signs - First Documented 12/20/22 20:00 Temp 36.6 Pulse 80 Resp 20 B/P (MAP) 130/57 (81) Pulse Ox 99 O2 Delivery Room Air Capillary Refill : Less Than 3 Seconds Height/Weight/BMI Height: 5'5.00" Weight: 150lbs. 9.0oz. 68.622861je; 22.00 BMI Method:Stated Progress/Results/Core Measures Results/Orders My Orders Orders - VERENICE QUINTANA DO Ct Abdomen/Pelvis Wo (12/20/22 20:09) Lidocaine 2% (Urojet) (Xylocaine Urojet) (12/20/22 21:15) Medications Given in ED Current Medications Medications Dose Ordered Sig/Nik Route Start Time Stop Time Status Last Admin Dose Admin Lidocaine HCl 10 ml ONCE ONCE TOP 12/20/22 21:15 12/20/22 21:16 DC 12/20/22 21:20 10 ML Vital Signs/I&O 12/20/22 20:00 Temp 36.6 Pulse 80 Resp 20 B/P (MAP) 130/57 (81) Pulse Ox 99 O2 Delivery Room Air Blood Pressure Mean: 81 Progress Progress Note : Progress Note ENEMAS AND MANUAL DIS-IMPACTION DONE. Diagnostic Imaging Comments CT ABDOMEN/PELVIS--PER RADIOLOGIST REPORT AT 2100 FINDINGS: Limited views of the lower thorax are unremarkable. The liver is normal without focal lesion. There is no biliary ductal dilation. Gallbladder is absent. Pancreas is normal. Spleen is normal. Adrenal glands are normal. Kidneys are atrophic. There is an indeterminate lesion in the upper pole of the right kidney measuring 11 mm. There is no hydronephrosis. Urinary bladder is normal. There is a large stool ball in the rectum. There is low rectal wall thickening suggestive of stercoral proctitis. There is a bowel containing left inguinal hernia. Remainder of the bowel is normal without obstruction or inflammation. No free fluid or air. No abdominal or pelvic lymphadenopathy. There is a 3.0 cm abdominal aortic aneurysm. There are no suspicious osseus lesions. 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 IMPRESSION: 1. Large stool ball in the rectum with rectal wall thickening in the low rectum suggestive of stercoral proctitis. 2. Indeterminate right renal lesion. Outpatient follow-up renal protocol CT recommended. 3. Abdominal aortic aneurysm measuring 3.0 cm. Reviewed: Reviewed by Me Departure Impression Primary Impression: Fecal impaction in rectum Additional Impressions: Chronic constipation ESRD on dialysis Disposition: HOME, SELF-CARE Condition: Improved Departure-Patient Inst. Decision time for Depature: 21:43 Referrals: DES MARINA MD (PCP/Family) Primary Care Physician Patient Instructions: Constipation, Adult ED, Fecal Impaction (DC) Add. Discharge Instructions: YOU NEED TO TAKE MIRALAX EVERY DAY IF YOU BECOME MORE CONSTIPATED, YOU MAY TAKE MIRALAX EVERY HOUR UNTIL YOU HAVE A BOWEL MOVEMENT YOU MAY USE FLEET'S ENEMAS AND DULCOLAX SUPPOSITORIES FOR BOWEL MOVEMENTS CONTINUE YOUR REGULAR MEDICATIONS PRESCRIBED FOLLOW UP WITH YOUR DR THIS WEEK FOR FURTHER CARE, RETURN TO ER IF SYMPTOMS WORSEN All discharge instructions reviewed with patient and/or family. Voiced understanding. VERENICE QUINTANA DO Dec 20, 2022 20:16
--- NOTE | 2022-12-20 20:49 | Diagnostic Imaging Report ---
EXAMINATION: CT abdomen and pelvis without contrast. TECHNIQUE: Multiple contiguous axial images were obtained through the abdomen and pelvis without the use of intravenous contrast. All CT scans use one or more of the following dose optimizing techniques: automated exposure control, MA and/or KvP adjustment based on patient size and exam type or iterative reconstruction. HISTORY: Constipation COMPARISON: None available. FINDINGS: Limited views of the lower thorax are unremarkable. The liver is normal without focal lesion. There is no biliary ductal dilation. Gallbladder is absent. Pancreas is normal. Spleen is normal. Adrenal glands are normal. Kidneys are atrophic. There is an indeterminate lesion in the upper pole of the right kidney measuring 11 mm. There is no hydronephrosis. Urinary bladder is normal. There is a large stool ball in the rectum. There is low rectal wall thickening suggestive of stercoral proctitis. There is a bowel containing left inguinal hernia. Remainder of the bowel is normal without obstruction or inflammation. No free fluid or air. No abdominal or pelvic lymphadenopathy. There is a 3.0 cm abdominal aortic aneurysm. There are no suspicious osseus lesions. 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 IMPRESSION: 1. Large stool ball in the rectum with rectal wall thickening in the low rectum suggestive of stercoral proctitis. 2. Indeterminate right renal lesion. Outpatient follow-up renal protocol CT recommended. 3. Abdominal aortic aneurysm measuring 3.0 cm. Dictated by: Dictated on workstation # [id number]
[2022-12-20] MEDS ORDERED: LIDOCAINE UROJET 2% GEL 10 ML PKG TOP ONE (21:15)
[2022-12-20 21:52] VITALS: BP 132/76
== END 2022-12-20 21:52 | disposition home or self-care (01) ==
LOC: EDUNIT# 19:50 → ER 19:54
DX: K59.09 Other constipation (principal); I12.0 Hypertensive chronic kidney disease with stage 5 chronic kidney disease or end stage renal disease; N18.6 End stage renal disease; Z99.2 Dependence on renal dialysis
CPT/HCPCS: 74176

== ENCOUNTER 2023-02-26 10:00 | Emergency (ER) | payer MEDICARE ==
[~2023-02-26] VITALS: Ht 160 cm; Wt 52.8 kg
[~2023-02-26 10:00] MED LIST changes: +POTA-330 PO; -POTA-51 PO
[2023-02-26 10:17] LABS: EOSINOPHILS % (AUTO) 0 % (0-10); HEMOGLOBIN 10.1 g/dL (11.5-16.0); MONOCYTES % (AUTO) 10 % (0-12)
[2023-02-26 10:19] LABS: BASOPHILS % (AUTO) 0 % (0-10); HEMATOCRIT 32 % (35-52); LYMPHOCYTES # (AUTO) 0.9 10^3/uL (1.0-4.0); LYMPHOCYTES % (AUTO) 7 % (12-44); MEAN CORPUSCULAR HEMOGLOBIN 31 pg (25-34); MEAN CORPUSCULAR HGB CONC 32 g/dL (32-36); MEAN CORPUSCULAR VOLUME 99 fL (80-99); MONOCYTES # (AUTO) 1.3 10^3/uL (0.0-1.0); NEUTROPHILS # (AUTO) 11.5 10^3/uL (1.8-7.8); NEUTROPHILS % (AUTO) 83 % (42-75); PLATELET COUNT 116 10^3/uL (130-400); WHITE BLOOD COUNT 13.9 10^3/uL (4.3-11.0)
[2023-02-26 10:34] LABS: POTASSIUM 3.6 MMOL/L (3.6-5.0)
[2023-02-26 10:35] LABS: CALCIUM 8.7 MG/DL (8.5-10.1)
[2023-02-26 10:36] LABS: LYMPHOCYTES % (MANUAL) 11 %; MONOCYTES % (MANUAL) 14 %; NEUTROPHILS % (MANUAL) 75 %
[2023-02-26 10:37] LABS: RBC MORPH NORMAL; TOTAL PROTEIN 5.7 GM/DL (6.4-8.2)
--- NOTE | 2023-02-26 10:37 | Diagnostic Imaging Report ---
EXAM: CHEST 1 VIEW, AP/PA ONLY INDICATION: Shortness of air. COMPARISON: 08/29/2018. FINDINGS: Cardiomegaly with increasing interstitial and airspace opacities with a perihilar predominance. Small bilateral pleural effusions. No pneumothorax. Right IJ dual-lumen CVC tip in the RA. IMPRESSION: Cardiomegaly with increasing pulmonary edema. Small bilateral pleural effusions. Dictated by: Dictated on workstation # [id number]
[2023-02-26 10:38] LABS: BILIRUBIN,TOTAL 1.1 MG/DL (0.1-1.0)
[2023-02-26 10:40] LABS: CREATININE SERUM 4.14 MG/DL (0.60-1.30)
[2023-02-26 10:43] LABS: MAGNESIUM 1.8 MG/DL (1.6-2.4)
[2023-02-26] MEDS ORDERED: MEROPENEM 1,000 MG in NS (IVPB) 100 ML IV ONE (11:45)
--- NOTE | 2023-02-26 12:00 | ED General ---
General Chief Complaint: Upper Extremity Stated Complaint: SHOULDER PAIN Nursing Triage Note: PT TO ROOM 07 VIA [facility] WITH C/O RIGHT SHOULDER PAIN, BACK PAIN, BILAT ANKLE SWELLING MORE THAT NORMAL, AND "LETHARGIC". EMS REPORTS FAMILY STATED THAT PT HAD FALLEN LAST WEEK AND WAS ASSISTED TO STANDING AND THE RIGHT SHOULDER HAS BEEN PAINFUL SINCE THEN. Source of Information: Patient, Family, Old Records Exam Limitations: No Limitations History of Present Illness Date Seen by Provider: Feb 26, 2023 Time Seen by Provider: 10:01 Initial Comments This 87-year-old woman presents to the emergency room via EMS with complaints of cough, shortness of breath, weakness, and fatigue for the past 3 days. She receives dialysis Monday, Monday, and Monday. She did finish dialysis on Monday. Since then she has not been wanting to be active. Normally the family goes out to do activities on the weekend, but patient declined to participate this weekend. Family tried to convince her to come to the emergency room last night but she refused. She had indicated pain in the chest at one point in time but she denies chest pain for me. She denies any tenderness to palpation. She has had increased cough productive of white sputum. She normally is not requiring oxygen support, but oxygen saturation is around 90% on room air. She is stable on 2 L nasal cannula. Her caster operator is Dr. Shira Haq. Her primary care provider is Dr. Hannon. She is hypotensive on arrival. She does still make some urine according to her daughter. Patient's participation in the history gathering is somewhat limited by difficulty hearing and her coughing. Allergies and Home Medications Allergies Coded Allergies: cephalexin (Verified Allergy, Unknown, 03/21/16) levofloxacin (Verified Adverse Reaction, Unknown, 08/31/18) TENDONOPATHY Patient Home Medication List Home Medication List Reviewed: Yes Amiodarone HCl (Amiodarone HCl) 200 Mg Tablet, 200 MG PO DAILY, (Reported) Entered as Reported by: ROSENDA MENDES on 08/31/181806 Apixaban (Eliquis) 2.5 Mg Tablet, 2.5 MG PO BID, (Reported) Entered as Reported by: ROSENDA MENDES on 08/31/181806 Benzonatate (Benzonatate) 100 Mg Capsule, 100 MG PO TID PRN for COUGH Prescribed by: TORRES GUIDO on 09/01/18911 Celecoxib (Celebrex) 200 Mg Capsule, 200 MG PO DAILY Prescribed by: MAKENZIE MONK on 11/20/22 1229 Diltiazem HCl (Cartia Xt) 120 Mg Cap.er.24h, 120 MG PO DAILY Prescribed by: TORRES GUIDO on 09/01/18911 Docusate Sodium (Colace) 100 Mg Capsule, 100 MG PO BID Prescribed by: TORRES GUIDO on 09/01/18911 Furosemide (Furosemide) 40 Mg Tablet, 40 MG PO DAILY, (Reported) Entered as Reported by: BRYON NARANJO on 07/17/17630 Guaifenesin (Guaifenesin) 1,200 Mg Tab.er.12h, 1,200 MG PO, (Reported) Entered as Reported by: ROSENDA MENDES on 08/31/181806 Levothyroxine Sodium (Levothyroxine Sodium) 25 Mcg Tablet, 37.5 MCG PO DAILY, (Reported) Entered as Reported by: BRYON NARANJO on 07/17/17630 Pantoprazole Sodium (Pantoprazole Sodium) 40 Mg Tablet.dr, 40 MG PO DAILY Prescribed by: TORRES GUIDO on 09/01/18911 Potassium Chloride (Potassium Chloride) 20 Meq Tablet.er, 20 MEQ PO DAILY Prescribed by: TORRES GUIDO on 09/01/18911 Review of Systems Review of Systems Constitutional: see HPI EENTM: no symptoms reported Respiratory: see HPI Cardiovascular: see HPI Gastrointestinal: no symptoms reported Genitourinary: see HPI Musculoskeletal: see HPI Skin: no symptoms reported Psychiatric/Neurological: See HPI Hematologic/Lymphatic: No Symptoms Reported Immunological/Allergic: no symptoms reported Past Pvuibio-Urmxfu-Kzkywa Hx Patient Social History Tobacco Use?: No Smoking Status: Never a Smoker Smokeless Tobacco Frequency: Never a User Use of E-Cig and/or Vaping dev: No Use of E-Cig and/or Vaping Duncan: Never a User Substance use?: No Alcohol Use?: No Immunizations Up To Date First/Initial COVID19 Vaccinat: 2020 Second COVID19 Vaccination Mehul: 2020 Third COVID19 Vaccination Date: 2020 Seasonal Allergies Seasonal Allergies: Yes Past Medical History Surgery/Hospitalization HX: HTN, CKD Surgeries: Yes Dialysis, Eye Surgery, Gallbladder, Neurological, Vascular Surgery (Dialysis port in right chest. Old dialysis fistula right arm) Respiratory: Yes (FLUID OVERLOAD; BRONCHITIS) Currently Using CPAP: No Currently Using BIPAP: No Cardiac: Yes (FLUID OVERLOAD; INTERMITTENT ATRIAL FIBRILLATION; CEREBRAL ANEURYSM ) Aneurysm, Atrial Fibrillation, Chronic Edema/Swelling, High Cholesterol, Hypertension Neurological: Yes (S/P REPAIR OF CEREBRAL ANEURYSM) STAVE CUTTER History: Menopausal Genitourinary: Yes Renal Failure, Dialysis Gastrointestinal: Yes Gastroesophageal Reflux Musculoskeletal: Yes Arthritis, Gout Endocrine: Yes Hypothyroidsim HEENT: Yes Cataract Loss of Vision: Denies Hearing Impairment: Hard of Hearing, Bilateral Hearing Aide Cancer: Yes Skin Did You Recieve Any Treatments: Yes What Type of Treatment Did You: Surgical Intervention Psychosocial: No Integumentary: No Blood Disorders: Yes (CHRONIC ANEMIA) Family Medical History Patient reports no known family medical history. Physical Exam Vital Signs Vital Signs - First Documented 02/26/23 02/26/23 10:00 13:04 Temp 36.7 Pulse 93 Resp 15 B/P (MAP) 87/47 (60) Pulse Ox 97 O2 Delivery Room Air O2 Flow Rate 2.00 Capillary Refill : Less Than 3 Seconds Height, Weight, BMI Height: 5'5.00" Weight: 150lbs. 9.0oz. 68.776420ch; 20.00 BMI Method:Stated General Appearance: No Apparent Distress, Mild Distress (Cough) HEENT: PERRL/EOMI, Normal ENT Inspection Neck: Normal Inspection; No JVD Respiratory: Chest Non Tender, No Accessory Muscle Use, No Respiratory Distress, Crackles (Bibasilar) Cardiovascular: Regular Rate, Rhythm, No Murmur, Other (Mild to moderate lower extremity edema) Gastrointestinal: Non Tender, Soft Extremity: Non Tender, Other (Mild to moderate edema) Neurologic/Psychiatric: Alert, Oriented x3, No Motor/Sensory Deficits, Normal Mood/Affect Skin: Normal Color, Warm/Dry Focused Exam Lactate Level 02/26/23 12:11: Lactic Acid Level 2.92*H Lactic Acid Level Laboratory Tests Test 02/26/23 12:11 Lactic Acid Level 2.92 MMOL/L (0.50-2.00) *H Progress/Results/Core Measures Suspected Sepsis SIRS Temperature: Pulse: 93 Respiratory Rate: 15 Laboratory Tests 02/26/23 10:00: White Blood Count 13.9H Blood Pressure 87 /47 Mean: 60 02/26/23 12:11: Lactic Acid Level 2.92*H Laboratory Tests 02/26/23 10:00: Creatinine 4.14H, INR Comment 1.0, Platelet Count 116L, Total Bilirubin 1.1H Results/Orders Lab Results Laboratory Tests Test 02/26/23 10:00 02/26/23 11:56 02/26/23 12:11 Range/Units White Blood Count 13.9 H 4.3-11.0 10^3/uL Red Blood Count 3.23 L 3.80-5.11 10^6/uL Hemoglobin 10.1 L 11.5-16.0 g/dL Hematocrit 32 L 35-52 % Mean Corpuscular Volume 99 80-99 fL Mean Corpuscular Hemoglobin 31 25-34 pg Mean Corpuscular Hemoglobin Concent 32 32-36 g/dL Red Cell Distribution Width 15.1 H 10.0-14.5 % Platelet Count 116 L 130-400 10^3/uL Mean Platelet Volume 12.0 9.0-12.2 fL Immature Granulocyte % (Auto) 1 % Neutrophils (%) (Auto) 83 H 42-75 % Lymphocytes (%) (Auto) 7 L 12-44 % Monocytes (%) (Auto) 10 0-12 % Eosinophils (%) (Auto) 0 0-10 % Basophils (%) (Auto) 0 0-10 % Neutrophils # (Auto) 11.5 H 1.8-7.8 10^3/uL Lymphocytes # (Auto) 0.9 L 1.0-4.0 10^3/uL Monocytes # (Auto) 1.3 H 0.0-1.0 10^3/uL Eosinophils # (Auto) 0.0 0.0-0.3 10^3/uL Basophils # (Auto) 0.0 0.0-0.1 10^3/uL Immature Granulocyte # (Auto) 0.1 0.0-0.1 10^3/uL Neutrophils % (Manual) 75 % Lymphocytes % (Manual) 11 % Monocytes % (Manual) 14 % Percent Immature Platelet Fraction 9.5 H 0.0-7.6 % Blood Morphology Comment NORMAL Prothrombin Time 13.4 12.2-14.7 SEC INR Comment 1.0 0.8-1.4 Activated Partial Thromboplast Time 38 H 24-35 SEC Sodium Level 138 135-145 MMOL/L Potassium Level 3.6 3.6-5.0 MMOL/L Chloride Level 96 L 98-107 MMOL/L Carbon Dioxide Level 26 21-32 MMOL/L Anion Gap 16 H 5-14 MMOL/L Blood Urea Nitrogen 37 H 7-18 MG/DL Creatinine 4.14 H 0.60-1.30 MG/DL Estimat Glomerular Filtration Rate 10 BUN/Creatinine Ratio 9 Glucose Level 128 H 70-105 MG/DL Calcium Level 8.7 8.5-10.1 MG/DL Corrected Calcium 9.5 8.5-10.1 MG/DL Magnesium Level 1.8 1.6-2.4 MG/DL Total Bilirubin 1.1 H 0.1-1.0 MG/DL Aspartate Amino Transf (AST/SGOT) 31 5-34 U/L Alanine Aminotransferase (ALT/SGPT) 19 0-55 U/L Alkaline Phosphatase 88 40-136 U/L Troponin I 2.705 *H <0.028 NG/ML C-Reactive Protein High Sensitivity 20.46 H 0.00-0.50 MG/DL Total Protein 5.7 L 6.4-8.2 GM/DL Albumin 3.0 L 3.2-4.5 GM/DL SARS-CoV-2 RNA (RT-PCR) Not Detected Not Detecte Lactic Acid Level 2.92 *H 0.50-2.00 MMOL/L My Orders Orders - OANH HEDRICK MD Cbc With Automated Diff (02/26/23 10:09) Comprehensive Metabolic Panel (02/26/23 10:09) Hs C Reactive Protein (02/26/23 10:09) Magnesium (02/26/23 10:09) Ed Iv/Invasive Line Start (02/26/23 10:09) Monitor-Rhythm Ecg Trace Only (02/26/23 10:09) Chest 1 View, Ap/Pa Only (02/26/23 10:11) Manual Differential (02/26/23 10:00) Covid 19 Inhouse Test (02/26/23 11:34) Blood Culture (02/26/23 11:34) Sputum Culture (02/26/23 11:34) Protime With Inr (02/26/23 11:34) Partial Thromboplastin Time (02/26/23 11:34) Vital Signs Adult Sepsis Patie Q15M (02/26/23 11:34) O2 (02/26/23 11:34) Remove Rings In Anticipation O (02/26/23 11:34) Lactic Acid Analyzer (02/26/23 11:34) Meropenem (Merrem 1000 Mg) (02/26/23 11:45) Ekg Tracing (02/26/23 11:43) Troponin I Wood (02/26/23 11:43) Medications Given in ED Vital Signs/I&O 02/26/23 02/26/23 02/26/23 10:00 10:00 13:04 Temp 36.7 37.0 Pulse 93 68 Resp 15 16 B/P (MAP) 87/47 (60) 129/67 Pulse Ox 97 97 O2 Delivery Room Air Nasal Cannula Nasal Cannula O2 Flow Rate 2.00 02/27/23 00:00 Intake Total 100 ml Balance 100 ml Capillary Refill : Less Than 3 Seconds Blood Pressure Mean: 60 Progress Note #1: Time: 12:54 Progress Note Patient was interviewed and examined. Daughter was interviewed as well. Labs were obtained. Patient demonstrated leukocytosis of 13.9 and a markedly elevated CRP of 20. Patient is presumed to have infection such as sepsis. Chest x-ray was viewed by me. There appeared to be pulmonary edema. Underlying pneumonia cannot be ruled out. Radiologist's report was also reviewed. Patient had blood cultures and lactic acid obtained. She was treated initially with meropenem. She initially was hypotensive and was treated with a liter of IV normal saline. Blood pressures remained stable in the 90s after fluid resuscitation. She maintained stable oxygen saturation on 2 L by nasal cannula. Electrolytes were unremarkable. She did not have any increase in respiratory effort after the IV fluids. Transfer was deemed necessary due to need for nephrology and dialysis services. A Landers catheter was placed, but she did not produce enough urine to run a specimen. The small quantity of urine in the catheter tubing did look cloudy. Transfer was excepted by Dr. Weaver, hospitalist at [facility]. Progress Note #2: Progress Note Patient maintained systolic BP in the 90s prior to transfer. Troponin returned elevated at 2.7. Dr. Weaver was provided update with this information after patient departed for transfer. ECG Initial ECG Impression Date: Feb 26, 2023 Initial ECG Impression Time: 11:49 Initial ECG Rate: 96 Initial ECG Rhythm: Normal Sinus Comment Regular rhythm, likely sinus. No ST elevation or depression to suggest acute ischemia. Automated read notes intraventricular conduction delay. No significant axis deviation. Diagnostic Imaging Diagonstic Imaging: Xray Plain Films/CT/US/NM/MRI: chest Comments NAME: WILEY VANEGAS [facility] REC#: [id number] PT STATUS: REG ER : 1935 PHYSICIAN: OANH HEDRICK MD ADMIT DATE: 02/26/23/ER Signed Date of Exam:02/26/23 CHEST 1 VIEW, AP/PA ONLY EXAM: CHEST 1 VIEW, AP/PA ONLY INDICATION: Shortness of air. COMPARISON: 08/29/2018. FINDINGS: Cardiomegaly with increasing interstitial and airspace opacities with a perihilar predominance. Small bilateral pleural effusions. No pneumothorax. Right IJ dual-lumen CVC tip in the RA. IMPRESSION: Cardiomegaly with increasing pulmonary edema. Small bilateral pleural effusions. Dictated by: Dictated on workstation # [id number] Dict: 02/26/23 1034 Trans: 02/26/23 1102 [facility] [id number] Interpreted by: NICOL HOLLINS MD Electronically signed by: NICOL HOLLINS MD 02/26/23 1102 Departure Impression Primary Impression: Sepsis Qualified Codes: A41.9 - Sepsis, unspecified organism Additional Impressions: Respiratory failure Qualified Codes: J96.01 - Acute respiratory failure with hypoxia Pulmonary edema Qualified Codes: J81.0 - Acute pulmonary edema End stage renal failure on dialysis Disposition: 02 XFER SHT-TRM HOSP Condition: Stable Transfer Transfer Reason: Exceeds level of care Time Spoke to Accepting Phy: 11:50 Transfer Progress Notes Transfer was excepted by [facility] hospitalist. Transfer Time: 12:57 Transfer Facility: [facility] Method of Transfer: EMS Departure-Patient Inst. Referrals: DES HANNON MD (PCP/Family) Primary Care Physician Copy Copies To 1: DES HANNON MD, JOSHUA T MD Feb 26, 2023 12:00
[2023-02-26 12:48] LABS: PROTHROMBIN TIME PATIENT 13.4 SEC (12.2-14.7)
[2023-02-26 13:04] VITALS: BP 129/67
== END 2023-02-26 13:04 | disposition short-term general hospital (02) ==
LOC: EDUNIT# 10:00 → ER 10:01
DX: A41.9 Sepsis, unspecified organism (principal); J96.90 Respiratory failure, unspecified, unspecified whether with hypoxia or hypercapnia; J81.1 Chronic pulmonary edema; I12.0 Hypertensive chronic kidney disease with stage 5 chronic kidney disease or end stage renal disease; N18.6 End stage renal disease; R77.8 Other specified abnormalities of plasma proteins; R79.82 Elevated C-reactive protein (CRP); Z99.2 Dependence on renal dialysis; Z20.822 Contact with and (suspected) exposure to COVID-19
CPT/HCPCS: 36415; 51702; 71045; 80053; 83605; 83735; 84484; 85007; 85027; 85610; 85730; 86141; 87040; 87077; 87186; 87636; 93005; 93041